=== PATIENT | female | born 1970 | race American Indian/Alaskan Native ===

== ENCOUNTER 2018-10-09 20:02 | Emergency (ER) | payer OTHER ==
[2018-10-09] MEDS ORDERED: NACL 0.9% 1000 ML 1,000 ML IV ONE (20:21)
[2018-10-09] MEDS ORDERED: DILAUDID IV ONE (20:21)
--- NOTE | 2018-10-09 20:31 | Emergency Department Report ---
ED Back Pain/Injury HPI - General Chief Complaint: Back Pain/Injury Stated Complaint: LOWER BACK PAIN Time Seen by Provider: 10/09/18 20:12 Source: patient, EMS Limitations: No Limitations - History of Present Illness Initial Comments: 48-year-old female presents today with complaint of left-sided back pain. Patient denies history of previous back pain, denies recent injury or fall. He reports pain began this morning, spontaneously. Her pain is in the left lower back, nonradiating, constant. Patient denies abdominal pain. Reports hematuria and dysuria. Patient denies nausea, vomiting, fever. MD Complaint: back pain -: This morning Similar Symptoms Previously: No Radiation: none Severity: severe Quality: sharp Consistency: constant Improves With: none Worsens With: movement, other (urinating) Context: unknown Associated Symptoms: denies: weakness, numbness, difficulty urinating, incontin ence, fever/chills, abdominal pain, nausea/vomiting - Related Data Home Medications Medication Instructions Recorded Confirmed Last Taken FLUoxetine HCL [PROzac] 40 mg PO BID 08/08/18 08/08/18 Unknown Furosemide [Lasix] 40 mg PO BID 08/08/18 08/08/18 Unknown Gabapentin [Neurontin] 300 mg PO BID 08/08/18 08/08/18 Unknown Hydralazine HCl 40 mg PO TID 08/08/18 08/08/18 08/07/18 13:00 Insulin Detemir [Levemir VIAL] 65 units SQ DAILY 08/08/18 08/08/18 08/08/18 08:00 Lyrica 250 mg PO TID 08/08/18 08/08/18 Unknown NIFEdipine [Nifedipine] 40 mg PO TID 08/08/18 08/08/18 08/07/18 13:00 Oxycodone HCl/Acetaminophen 1 each PO HS PRN 08/08/18 08/08/18 1 Day Ago [Percocet 10/325 mg] ~08/07/18 Temazepam [Restoril] 15 mg PO HS 08/08/18 08/08/18 Unknown Zolpidem [Ambien] 5 mg PO QHS PRN 08/08/18 08/08/18 Unknown Previous Rx's Medication Instructions Recorded Last Taken Type AtorvaSTATin [Lipitor] 40 mg PO QHS #30 tablet 08/10/18 Unknown Rx Clopidogrel [Plavix] 75 mg PO DAILY #30 tablet 08/10/18 Unknown Rx Methocarbamol [Robaxin-750] 750 mg PO Q6HR PRN #20 tablet 10/09/18 Unknown Rx cloNIDine [Catapres] 0.4 mg PO BID #60 tablet 10/09/18 Unknown Rx traMADol [Ultram] 50 mg PO Q6HR PRN #7 tablet 10/09/18 Unknown Rx Allergies Allergy/AdvReac Type Severity Reaction Status Date / Time ketorolac [From Toradol] Allergy Hives Verified 08/08/18 19:16 morphine Allergy Hives Verified 08/08/18 19:16 ED Review of Systems ROS: Stated complaint: LOWER BACK PAIN Other details as noted in HPI Comment: All other systems reviewed and negative Constitutional: denies: chills, fever Gastrointestinal: denies: abdominal pain, nausea, vomiting Genitourinary: dysuria, hematuria Musculoskeletal: back pain Neurological: denies: weakness, numbness, paresthesias ED Past Medical Hx - Past Medical History Previous Medical History?: Yes Hx Hypertension: Yes Hx CVA: Yes (Small stroke left with weak legs/incontinent) Hx Diabetes: Yes Hx GERD: Yes (stomach ulcers) Hx Liver Disease: Yes (nonalcoholic fatty liver) Hx COPD: Yes - Surgical History Past Surgical History?: Yes Hx Cholecystectomy: Yes Hx Breast Surgery: Yes Additional Surgical History: Hysterectomy - Social History Smoking Status: Never Smoker Substance Use Type: Prescribed - Medications Home Medications: Home Medications Medication Instructions Recorded Confirmed Last Taken Type FLUoxetine HCL [PROzac] 40 mg PO BID 08/08/18 08/08/18 Unknown History Furosemide [Lasix] 40 mg PO BID 08/08/18 08/08/18 Unknown History Gabapentin [Neurontin] 300 mg PO BID 08/08/18 08/08/18 Unknown History Hydralazine HCl 40 mg PO TID 08/08/18 08/08/18 08/07/18 13:00 History Insulin Detemir [Levemir VIAL] 65 units SQ DAILY 08/08/18 08/08/18 08/08/18 08:00 History Lyrica 250 mg PO TID 08/08/18 08/08/18 Unknown History NIFEdipine [Nifedipine] 40 mg PO TID 08/08/18 08/08/18 08/07/18 13:00 History Oxycodone HCl/Acetaminophen 1 each PO HS PRN 08/08/18 08/08/18 1 Day Ago History [Percocet 10/325 mg] ~08/07/18 Temazepam [Restoril] 15 mg PO HS 08/08/18 08/08/18 Unknown History Zolpidem [Ambien] 5 mg PO QHS PRN 08/08/18 08/08/18 Unknown History AtorvaSTATin [Lipitor] 40 mg PO QHS #30 tablet 08/10/18 Unknown Rx Clopidogrel [Plavix] 75 mg PO DAILY #30 tablet 08/10/18 Unknown Rx Methocarbamol [Robaxin-750] 750 mg PO Q6HR PRN #20 tablet 10/09/18 Unknown Rx cloNIDine [Catapres] 0.4 mg PO BID #60 tablet 10/09/18 Unknown Rx traMADol [Ultram] 50 mg PO Q6HR PRN #7 tablet 10/09/18 Unknown Rx ED Physical Exam - General Limitations: No Limitations General appearance: alert, in no apparent distress - Head Head exam: Present: atraumatic, normocephalic - Eye Eye exam: Present: normal appearance - ENT ENT exam: Present: mucous membranes moist - Neck Neck exam: Present: normal inspection - Respiratory Respiratory exam: Present: normal lung sounds bilaterally. Absent: respiratory distress - Cardiovascular Cardiovascular Exam: Present: regular rate, normal rhythm - GI/Abdominal GI/Abdominal exam: Present: soft. Absent: distended, tenderness - Extremities Exam Extremities exam: Present: normal inspection - Back Exam Back exam: Present: CVA tenderness (L) - Neurological Exam Neurological exam: Present: alert, oriented X3 - Psychiatric Psychiatric exam: Present: normal affect, normal mood - Skin Skin exam: Present: warm, dry, intact, normal color ED Course Vital Signs 10/09/18 10/09/18 10/09/18 20:05 21:22 22:00 Temperature 98.6 F Pulse Rate 86 94 H Respiratory 18 Rate Blood Pressure 192/110 192/128 Blood Pressure 202/113 [Left] O2 Sat by Pulse 100 100 Oximetry 10/09/18 23:00 Temperature 98.6 F Pulse Rate 87 Respiratory 18 Rate Blood Pressure Blood Pressure 151/91 [Left] O2 Sat by Pulse 100 Oximetry ED Medical Decision Making - Lab Data Result diagrams: 10/09/18 20:33 10/09/18 20:33 - Radiology Data Radiology results: report reviewed, image reviewed - Medical Decision Making 48-year-old female with left lower back pain. Reported dysuria and hematuria. However UA negative for infection or significant hematuria. CT was obtained to rule out any intra-abdominal pathology such as kidney stone, pyelonephritis or hydronephrosis. CT is negative for any acute findings. Patient feeling much better at this time after receiving IV fluids and pain meds. Remainder of labs unremarkable. No elevation in WBCs. Pain possible due to muscle strain. Return precautions given. Outpatient follow-up advised. Patient given prescr iption for Ultram and Robaxin. - Differential Diagnosis kidney stone, pyelonephritis, muscle strain, sciatica Critical care attestation.: If time is entered above; I have spent that time in minutes in the direct care of this critically ill patient, excluding procedure time. ED Disposition Clinical Impression: Flank pain Disposition: DC-01 TO HOME OR SELFCARE Is pt being admited?: No Condition: Stable Instructions: Flank Pain (ED), Back Pain (ED) Prescriptions: cloNIDine [Catapres] 0.4 mg PO BID #60 tablet Methocarbamol [Robaxin-750] 750 mg PO Q6HR PRN #20 tablet PRN Reason: Spasms traMADol [Ultram] 50 mg PO Q6HR PRN #7 tablet PRN Reason: Pain Referrals: ROLAN RHODES MD [Primary Care Provider] - 3-5 Days [facility] [Provider Group] - 3-5 Days Time of Disposition: 23:16
[2018-10-09 20:42] LABS: Basophils # (Auto) 0.1 K/mm3 (0.0-0.1); Eosinophils # (Auto) 0.2 K/mm3 (0.0-0.4); Eosinophils % (Auto) 2.5 % (0.0-4.3); Hematocrit 44.5 % (30.3-42.9); Hemoglobin 14.5 gm/dl (10.1-14.3); Lymphocytes # (Auto) 3.2 K/mm3 (1.2-5.4); Lymphocytes % (Auto) 36.3 % (13.4-35.0); Mean Corpuscular HGB Conc 33 % (30-34); Mean Corpuscular Volume 89 fl (79-97); Monocytes # (Auto) 0.7 K/mm3 (0.0-0.8); Monocytes % (Auto) 7.4 % (0.0-7.3); Platelet Count 334 K/mm3 (140-440); Red Blood Count 4.99 M/mm3 (3.65-5.03); Red Cell Distribution Width 13.9 % (13.2-15.2)
[2018-10-09 21:27] LABS: Alanine Aminotransferase 23 units/L (7-56); Albumin 3.7 g/dL (3.9-5); BUN/Creatinine Ratio 20; Blood Urea Nitrogen 18 mg/dL (7-17); Calcium 9.5 mg/dL (8.4-10.2); Hemolysis Index 12
[2018-10-09 21:30] LABS: Bilirubin,Urine NEG (Negative); Blood,Urine NEG (Negative); Color,Urine Yellow (Yellow); Mucus,Urine FEW /HPF; Urobilinogen,Urine < 2.0 mg/dL (<2.0)
[2018-10-09] MEDS ORDERED: CATAPRES PO ONE (21:30)
--- NOTE | 2018-10-09 22:43 | Cat Scan Report ---
FINAL REPORT PROCEDURE: CT ABDOMEN PELVIS WO CON TECHNIQUE: Computerized axial tomography of the abdomen and pelvis was performed without intravenous contrast. This study is performed without intravascular contrast material and its sensitivity for ab dominal and pelvic pathology, including neoplasms, inflammation, abscess, free fluid, thrombosis, art erial dissection and infarction, is reduced compared with a contrast enhanced study. HISTORY: L flank pain COMPARISON: No prior studies are available for comparison. FINDINGS: Lower Lung heck: There is minimal dependent atelectasis. Upper Abdomen: The gallbladder is surgically absent. The unenhanced images the liver show no focal ab normalities. The adrenal glands, the pancreas and the spleen show no abnormalities. Descending thorac ic aorta is markedly tortuous although I do not see evidence of aneurysmal dilatation. Kidneys, Ureters and Urinary bladder: There is a 5.2 centimeter low-density nodule projecting lateral ly from the lower 3rd of the right kidney with a density of 0 Hounsfield units consistent with a thuan l cortical cyst. The right kidney is otherwise unremarkable. No masses calculi or hydronephrosis visu alized. The right ureter appears normal. Urinary bladder is only partially filled and showed no gross abnormality. The left ureter and left kidney show no abnormalities. Calcifications are visualized in the lower pelvis which appear to represent phleboliths Retroperitoneum: Atherosclerotic changes are seen in the abdominal aorta. No aneurysm is visualized. Nonspecific subcentimeter lymph nodes are seen in the retroperitoneum. No pathologically enlarged lym ph nodes are identified. Bowel: There is moderate diverticulosis in the left side of the colon without evidence of diverticuli tis. No evidence of bowel obstruction or ascites. There is no free intraperitoneal gas. Normal-appear ing appendix is seen in the right lower quadrant. Reproductive organs: Uterus is surgically absent. No abnormal adnexal masses are seen. Other: No acute bony abnormalities are seen. IMPRESSION: No acute abnormalities are seen. Colonic diverticulosis without evidence of diverticulitis. Renal cortical cyst visualize right kidney. No hydronephrosis renal or ureteral calculi are seen. Prior hysterectomy. Prior cholecystectomy.
[2018-10-09 23:13] VITALS: BP 151/91
== END 2018-10-09 23:45 | disposition home or self-care (01) ==
LOC: ED 20:02
DX: R10.9 Unspecified abdominal pain (principal); I10 Essential (primary) hypertension; E11.9 Type 2 diabetes mellitus without complications; K21.9 Gastro-esophageal reflux disease without esophagitis; J44.9 Chronic obstructive pulmonary disease, unspecified; Z90.710 Acquired absence of both cervix and uterus; Z90.49 Acquired absence of other specified parts of digestive tract; Z86.73 Personal history of transient ischemic attack (TIA), and cerebral infarction without residual deficits; Z88.6 Allergy status to analgesic agent
CPT/HCPCS: 36415; 74176; 80053; 81001; 83690; 84703; 85025; 96374; 99284; J1170; J7030

== ENCOUNTER 2018-10-25 15:07 | Emergency (ER) | payer OTHER ==
--- NOTE | 2018-10-25 15:30 | Emergency Department Report ---
Blank Doc - Documentation Documentation: This is a 48-year-old female that presents with chronic lower back pain. Denies any urinary symptoms. Denies any injuries or trauma. This initial assessment diagnostic orders/clinical plan/treatment(s) is/are subject to change based on patient's health status, clinical progression and re- assessment by fellow clinical providers in the ED. Further treatment and workup at subsequent clinical providers discretion. Patient/guardians urged not to elope from ED s their condition may be serious if not clinically assessed and managed. Initial orders include: 1-Patient sent to [facility] for further evaluation and treatment
== END 2018-10-25 19:00 | disposition left against medical advice (07) ==
LOC: ED 15:07
DX: M54.5 Low back pain (principal); Z53.21 Procedure and treatment not carried out due to patient leaving prior to being seen by health care provider

== ENCOUNTER 2018-10-30 12:33 | Emergency (ER) | payer OTHER ==
[2018-10-30 15:14] LABS: Basophils # (Auto) 0.1 K/mm3 (0.0-0.1); Basophils % (Auto) 0.7 % (0.0-1.8); Eosinophils # (Auto) 0.2 K/mm3 (0.0-0.4); Eosinophils % (Auto) 1.5 % (0.0-4.3); Hematocrit 45.8 % (30.3-42.9); Hemoglobin 15.3 gm/dl (10.1-14.3); Lymphocytes # (Auto) 4.2 K/mm3 (1.2-5.4); Lymphocytes % (Auto) 32.9 % (13.4-35.0); Mean Corpuscular HGB Conc 34 % (30-34); Mean Corpuscular Volume 90 fl (79-97); Monocytes # (Auto) 0.9 K/mm3 (0.0-0.8); Monocytes % (Auto) 6.9 % (0.0-7.3); Platelet Count 352 K/mm3 (140-440); Red Blood Count 5.07 M/mm3 (3.65-5.03); Red Cell Distribution Width 14.7 % (13.2-15.2)
[2018-10-30 15:18] LABS: Albumin 4.1 g/dL (3.9-5); BUN/Creatinine Ratio 18; Blood Urea Nitrogen 24 mg/dL (7-17); Calcium 9.4 mg/dL (8.4-10.2); Hemolysis Index 177
[2018-10-30 15:21] LABS: Bilirubin,Direct < 0.2 mg/dL (0-0.2)
[2018-10-30 15:22] LABS: Alanine Aminotransferase 38 units/L (7-56)
--- NOTE | 2018-10-30 15:37 | Emergency Department Report ---
HPI - General Chief Complaint: Abdominal Pain Time Seen by Provider: 10/30/18 14:31 - HPI HPI: 48-year-old -[place] female presents to the emergency department with complaint of left-sided flank pain with some radiation towards the left abdomen has been going on for the past month. She says that she's had some dysuria and occasionally has seen some blood in the urine. She denies any fever, back pain. Patient has a past medical history of hypertension, diabetes, previous breast cancer, and she also has a history of having a stroke in July of last year and was seen here at this hospital. The patient was also seen here about one month ago for similar left-sided flank pain. At the time she had some blood work done and a CT scan that did not show any acute process or etiology of her pain. She does not have a primary care physician. ED Past Medical Hx - Past Medical History Hx Hypertension: Yes Hx CVA: Yes (Small stroke left with weak legs/incontinent) Hx Diabetes: Yes Hx GERD: Yes (stomach ulcers) Hx Liver Disease: Yes (nonalcoholic fatty liver) Hx Arthritis: Yes (RA, osteoarthritis) Hx COPD: Yes - Surgical History Hx Cholecystectomy: Yes Hx Breast Surgery: Yes Additional Surgical History: Hysterectomy - Social History Smoking Status: Current Every Day Smoker Substance Use Type: None - Medications Home Medications: Home Medications Medication Instructions Recorded Confirmed Last Taken Type Lyrica 250 mg PO TID 08/08/18 08/08/18 Unknown History RX: FLUoxetine HCL [PROzac] 40 mg PO BID 08/08/18 08/08/18 Unknown History RX: Furosemide [Lasix] 40 mg PO BID 08/08/18 08/08/18 Unknown History RX: Gabapentin [Neurontin] 300 mg PO BID 08/08/18 08/08/18 Unknown History RX: Hydralazine HCl 40 mg PO TID 08/08/18 08/08/18 08/07/18 13:00 History RX: Insulin Detemir [Levemir VIAL] 65 units SQ DAILY 08/08/18 08/08/18 08/08/18 08:00 History RX: NIFEdipine [Nifedipine] 40 mg PO TID 08/08/18 08/08/18 08/07/18 13:00 History RX: Oxycodone HCl/Acetaminophen 1 each PO HS PRN 08/08/18 08/08/18 1 Day Ago History [Percocet 10/325 mg] ~08/07/18 RX: Temazepam [Restoril] 15 mg PO HS 08/08/18 08/08/18 Unknown History RX: Zolpidem [Ambien] 5 mg PO QHS PRN 08/08/18 08/08/18 Unknown History RX: AtorvaSTATin [Lipitor] 40 mg PO QHS #30 tablet 08/10/18 Unknown Rx RX: Clopidogrel [Plavix] 75 mg PO DAILY #30 tablet 08/10/18 Unknown Rx Methocarbamol [Robaxin-750] 750 mg PO Q6HR PRN #20 tablet 10/09/18 Unknown Rx RX: cloNIDine [Catapres] 0.4 mg PO BID #60 tablet 10/09/18 Unknown Rx traMADol [Ultram] 50 mg PO Q6HR PRN #7 tablet 10/09/18 Unknown Rx Clonidine HCl [Catapres] 0.3 mg PO BID #60 tablet 10/30/18 Unknown Rx Nitrofurantoin Monohyd/M-Cryst 100 mg PO BID #14 capsule 10/30/18 Unknown Rx [Macrobid 100 mg Capsule] ED Review of Systems ROS: Stated complaint: PAIN ON (L) SIDE Other details as noted in HPI Comment: All other systems reviewed and negative Constitutional: denies: chills, fever Eyes: denies: eye pain, vision change ENT: denies: ear pain, throat pain Respiratory: denies: cough, shortness of breath Cardiovascular: denies: chest pain, palpitations Gastrointestinal: abdominal pain. denies: diarrhea Genitourinary: dysuria. denies: discharge Musculoskeletal: denies: back pain, arthralgia Skin: denies: rash, lesions Neurological: denies: headache, weakness Physical Exam - Physical Exam Vital Signs: Vital Signs 10/30/18 12:38 Temperature 98.9 F Pulse Rate 88 Respiratory 16 Rate Blood Pressure 214/120 O2 Sat by Pulse 99 Oximetry Physical Exam: GENERAL: The patient is well-developed well-nourished. HEENT: Normocephalic. Atraumatic. Patient has moist mucous membranes. EYES: Extraocular motions are intact. Pupils are equal and reactive to light bilaterally. NECK: Supple. Trachea is midline. CHEST/LUNGS: Clear to auscultation. There is no respiratory distress noted. HEART/CARDIOVASCULAR: Regular. There is no tachycardia. There is no obvious murmur. ABDOMEN: Abdomen is soft. No tenderness to palpation to the abdomen but there is some reproducible left flank pain to palpation. No guarding. Patient has normal bowel sounds. Obese habitus. SKIN: Skin is warm and dry. Nonpitting edema to the bilateral lower extremities. NEURO: The patient is awake, alert, and oriented. The patient is cooperative. The patient has normal speech. MUSCULOSKELETAL: There is no tenderness or deformity. There is no evidence of acute injury. ED Course Vital Signs 10/30/18 12:38 Temperature 98.9 F Pulse Rate 88 Respiratory 16 Rate Blood Pressure 214/120 O2 Sat by Pulse 99 Oximetry ED Medical Decision Making - Lab Data Result diagrams: 10/30/18 14:44 10/30/18 14:44 - Radiology Data Radiology results: report reviewed CT of the abdomen and pelvis without contrast shows no evidence of renal obstruction or renal calculi bilaterally. There is a cyst in the lower pole of the right kidney. Diverticulosis of the descending sigmoid colon. 2 tiny midline ventral hernias containing only fat. This was read by radiologist, Jaja Matamoros M.D. - Medical Decision Making This patient presents to the emergency department with a continuation of left flank pain. Labs are mostly unremarkable except for some mild renal insufficiency with a creatinine of 1.3 and a GFR of 53. She also has a mild urinary tract infection. No leukocytosis, electrolyte abnormalities. CT scan of the abdomen and pelvis was done without contrast that shows no evidence of renal obstruction or calculi, a cyst in the lower right kidney, diverticulosis without diverticulitis and 2 tiny ventral hernias. Patient was found to have very elevated blood pressure. However she has been out of her Catapres for the past week or so. She was given a dose of hydralazine and her blood pressure improved greatly. The patient has multiple dietary and/or lifestyle changes that can be made to help with her blood pressure and her overall health. We discussed staying away from foods are high in salt and caffeinated products. We discussed smoking cessation. The patient also understands that she needs to find a primary care physician to manage all of her comorbidities and medical conditions and she has been given multiple referrals for primary care physicians. Patient has previous history of stroke but has no complaints today regarding any weakness, numbness, headache or any neurological deficits and came in focused on the flank pain. She will return to the ER with any worsening of her symptoms or any acute distress. - Differential Diagnosis nephrolithiasis, pyelonephritis, UTI, colitis Critical Care Time: No Critical care attestation.: If time is entered above; I have spent that time in minutes in the direct care of this critically ill patient, excluding procedure time. ED Disposition Clinical Impression: Left flank pain, Noncompliance with medication regimen, Renal insufficiency Hypertension Qualifiers: Hypertension type: essential hypertension Qualified Code(s): I10 - Essential (primary) hypertension UTI (urinary tract infection) Qualifiers: Urinary tract infection type: acute cystitis Hematuria presence: without hematuria Qualified Code(s): N30.00 - Acute cystitis without hematuria Disposition: TO HOME OR SELFCARE Is pt being admited?: No Condition: Stable Instructions: How to Stop Smoking (ED), Urinary Tract Infection in Women (ED), Hypertension (ED), Flank Pain (ED), Impaired Kidney Function (ED) Additional Instructions: Please follow up with a primary care physician as soon as possible. Return to the emergency Department with any worsening of your symptoms or any acute distress. Take the antibiotics as prescribed for your urinary tract infection. I am refilling your clonidine. Try and stay away from foods that are high in salt and caffeinated products to help with your blood pressure. Please try and quit smoking. Keep a blood pressure log. Please avoid any NSAID use which includes ibuprofen, Aleve, Motrin, naproxen, Midol. Prescriptions: Clonidine HCl [Catapres] 0.3 mg PO BID #60 tablet Nitrofurantoin Monohyd/M-Cryst [Macrobid 100 mg Capsule] 100 mg PO BID #14 capsule Referrals: ROLAN RHODES MD [Staff Physician] - 2-3 Days MARY CORDOVA DO [Staff Physician] - 2-3 Days CARLOS JULIO MD [Staff Physician] - 2-3 Days [facility] [Outside] - 2-3 Days Time of Disposition: 18:57
[2018-10-30 15:46] LABS: Bacteria,Urine 1+ /HPF (Negative); Bilirubin,Urine NEG (Negative); Blood,Urine NEG (Negative); Color,Urine Yellow (Yellow); Hyaline Casts,Urine 4 /LPF; Mucus,Urine FEW /HPF
[2018-10-30 15:48] LABS: Protein,Urine >500 mg/dL (Negative)
[2018-10-30] MEDS ORDERED: ULTRAM PO ONE (16:47)
[2018-10-30] MEDS ORDERED: ZOFRAN ODT PO ONE (17:03)
[2018-10-30] MEDS ORDERED: ZOFRAN ODT ONE (17:06)
[2018-10-30] MEDS ORDERED: APRESOLINE IV ONE (17:30)
[2018-10-30 18:50] VITALS: BP 143/79
[2018-10-30] MEDS ORDERED: TYLENOL #3 PO ONE (19:28)
--- NOTE | 2018-10-30 22:17 | Cat Scan Report ---
PROCEDURE: CT ABDOMEN PELVIS WO CON TECHNIQUE: Computerized axial tomography of the abdomen and pelvis was performed without intravenous contrast. This study is performed without intravascular contrast material and its sensitivity for ab dominal and pelvic pathology, including neoplasms, inflammation, abscess, free fluid, thrombosis, art erial dissection and infarction, is reduced compared with a contrast enhanced study. HISTORY: left flank pain COMPARISONS: None . FINDINGS: Visualized lower thorax: No significant abnormality. Liver: Normal size and attenuation. Spleen: Normal size and attenuation. Gallbladder and biliary system: Gallbladder has been surgically removed.. Pancreas: Normal. Adrenals: Normal. Kidneys: There is a cyst in lower pole right kidney measuring 4.1 x 5.0 x 5.3 cm. No evidence for hyd ronephrosis or renal or ureteral calculi seen. GI tract: Diverticulosis of the descending and sigmoid colon is noted. . Lymph nodes and mesentery: Normal. Vasculature: Descending thoracic aorta is tortuous but otherwise normal.. Bladder: Normal. No bladder calculus is noted Reproductive organs: Uterus has been surgically removed. Peritoneum: No free fluid. Musculoskeletal structures: Moderate to severe degenerative disc changes at L4-L5 and L5-S1 are noted . There are also degenerative changes of lower thoracic levels. Facet joint degenerative changes at L 3-L4 are noted bilaterally.. Other: Tiny midline ventral hernia is noted inferiorly containing only fat. Tiny midline umbilical h ernia is noted containing only fat. IMPRESSION: 1. No evidence for renal obstruction or renal calculi bilaterally 2. Cyst in the lower pole right kidney which can be further evaluated with ultrasound 3. Diverticulosis of the descending sigmoid colon 4. 2 tiny midline ventral hernias containing only fat This document is electronically signed by Jaja Matamoros MD., October 30 2018 05:09:29 PM ET
== END 2018-10-30 19:38 | disposition home or self-care (01) ==
LOC: ED 12:33
DX: N30.00 Acute cystitis without hematuria (principal); I10 Essential (primary) hypertension; N28.9 Disorder of kidney and ureter, unspecified; E11.9 Type 2 diabetes mellitus without complications; K21.9 Gastro-esophageal reflux disease without esophagitis; M19.90 Unspecified osteoarthritis, unspecified site; J44.9 Chronic obstructive pulmonary disease, unspecified; F17.200 Nicotine dependence, unspecified, uncomplicated; Z86.73 Personal history of transient ischemic attack (TIA), and cerebral infarction without residual deficits; Z90.710 Acquired absence of both cervix and uterus; Z90.49 Acquired absence of other specified parts of digestive tract; Z88.6 Allergy status to analgesic agent
CPT/HCPCS: 36415; 74176; 80048; 80076; 81001; 83690; 84703; 85025; 96374; 99284; J0360; Q0162

== ENCOUNTER 2018-12-21 11:24 | Inpatient (IN) | payer OTHER ==
--- NOTE | 2018-12-21 11:45 | Cat Scan Report ---
CT HEAD WITHOUT CONTRAST: HISTORY: Neuro deficits, stroke. TECHNIQUE: Sequential 2.5mm CT images. COMPARISON: 08/08/18. FINDINGS: Cerebral Parenchyma: Minimal cortical volume loss and chronic white matter changes are identified. A focal chronic infarct in the medial right frontal lobe within the right ALPHONSO territory is unchanged measuring up to 1.0 x 0.6 x 2.0 cm. The remainder of the brain parenchyma is within normal limits. Cerebellum: Within normal limits. Brainstem: Within normal limits. Ventricles: Normal. Sella: Normal. Extra-axial spaces: Normal. Basal Cisterns: Normal. Intracranial Hemorrhage: None. Midline Shift: None. Calvarium: Normal. Sinuses: Normal. Mastoid Air Cells: Normal. Visualized Orbits: Normal. IMPRESSION: Minimal volume loss and chronic white matter changes. Chronic focal infarct in the right ALPHONSO territory. No acute intracranial process. These findings were discussed with Dr. Serna in the emergency department at 1139 hrs.
[2018-12-21 12:00] LABS: Basophils # (Auto) 0.1 K/mm3 (0.0-0.1); Basophils % (Auto) 1.4 % (0.0-1.8); Eosinophils # (Auto) 0.3 K/mm3 (0.0-0.4); Eosinophils % (Auto) 2.9 % (0.0-4.3); Hematocrit 38.1 % (30.3-42.9); Hemoglobin 12.7 gm/dl (10.1-14.3); Lymphocytes # (Auto) 3.3 K/mm3 (1.2-5.4); Lymphocytes % (Auto) 34.2 % (13.4-35.0); Mean Corpuscular HGB Conc 33 % (30-34); Mean Corpuscular Volume 92 fl (79-97); Monocytes # (Auto) 0.6 K/mm3 (0.0-0.8); Monocytes % (Auto) 6.5 % (0.0-7.3); Platelet Count 289 K/mm3 (140-440); Red Blood Count 4.16 M/mm3 (3.65-5.03); Red Cell Distribution Width 15.7 % (13.2-15.2)
--- NOTE | 2018-12-21 12:01 | Emergency Department Report ---
ED General Adult HPI - General Stated complaint: CVA Time Seen by Provider: 12/21/18 11:29 - History of Present Illness Initial comments: Patient states that around 8 AM this morning she noticed that her left arm and left leg were weak as well as having slurred speech. Patient has a recent history of a CVA in August patient also endorses having a GI bleed within the last 90 days and hit her head 2 days ago. Stroke protocol was initiated on followed. Patient denies chest pain, shortness breath, or headache. -: Sudden Severity scale (0 -10): 0 Consistency: constant Improves with: none Worsens with: none Associated Symptoms: denies other symptoms Treatments Prior to Arrival: none - Related Data Home Medications Medication Instructions Recorded Confirmed Last Taken FLUoxetine HCL [PROzac] 40 mg PO BID 08/08/18 12/21/18 Unknown Furosemide [Lasix] 40 mg PO BID 08/08/18 12/21/18 Unknown Gabapentin [Neurontin] 300 mg PO BID 08/08/18 12/21/18 Unknown Hydralazine HCl 40 mg PO TID 08/08/18 12/21/18 08/07/18 13:00 Insulin Detemir [Levemir VIAL] 35 units SQ DAILY 08/08/18 12/21/18 08/08/18 08:00 Lyrica 250 mg PO TID 08/08/18 12/21/18 Unknown Oxycodone HCl/Acetaminophen 1 each PO HS PRN 08/08/18 12/21/18 1 Day Ago [Percocet 10/325 mg] ~08/07/18 Zolpidem [Ambien] 5 mg PO QHS PRN 08/08/18 12/21/18 Unknown Insulin Aspart [Novolog] 35 unit SQ AC 12/21/18 12/21/18 Unknown Previous Rx's Medication Instructions Recorded Last Taken Type AtorvaSTATin [Lipitor] 40 mg PO QHS #30 tablet 08/10/18 Unknown Rx Clopidogrel [Plavix] 75 mg PO DAILY #30 tablet 08/10/18 Unknown Rx cloNIDine [Catapres] 0.4 mg PO BID #60 tablet 10/09/18 Unknown Rx Nitrofurantoin Monohyd/M-Cryst 100 mg PO BID #14 capsule 10/30/18 Unknown Rx [Macrobid 100 mg Capsule] Allergies Allergy/AdvReac Type Severity Reaction Status Date / Time ketorolac [From Toradol] Allergy Hives Verified 12/21/18 12:12 morphine Allergy Hives Verified 12/21/18 12:12 ED Review of Systems ROS: Stated complaint: CVA Other details as noted in HPI ED Past Medical Hx - Past Medical History Hx Hypertension: Yes Hx CVA: Yes (Small stroke left with weak legs/incontinent) Hx Diabetes: Yes Hx GERD: Yes (stomach ulcers) Hx Liver Disease: Yes (nonalcoholic fatty liver) Hx Arthritis: Yes (RA, osteoarthritis) Hx COPD: Yes - Surgical History Hx Cholecystectomy: Yes Hx Breast Surgery: Yes Additional Surgical History: Hysterectomy - Social History Smoking Status: Current Every Day Smoker Substance Use Type: None - Medications Home Medications: Home Medications Medication Instructions Recorded Confirmed Last Taken Type FLUoxetine HCL [PROzac] 40 mg PO BID 08/08/18 12/21/18 Unknown History Furosemide [Lasix] 40 mg PO BID 08/08/18 12/21/18 Unknown History Gabapentin [Neurontin] 300 mg PO BID 08/08/18 12/21/18 Unknown History Hydralazine HCl 40 mg PO TID 08/08/18 12/21/18 08/07/18 13:00 History Insulin Detemir [Levemir VIAL] 35 units SQ DAILY 08/08/18 12/21/18 08/08/18 08:00 History Lyrica 250 mg PO TID 08/08/18 12/21/18 Unknown History Oxycodone HCl/Acetaminophen 1 each PO HS PRN 08/08/18 12/21/18 1 Day Ago History [Percocet 10/325 mg] ~08/07/18 Zolpidem [Ambien] 5 mg PO QHS PRN 08/08/18 12/21/18 Unknown History AtorvaSTATin [Lipitor] 40 mg PO QHS #30 tablet 08/10/18 12/21/18 Unknown Rx Clopidogrel [Plavix] 75 mg PO DAILY #30 tablet 08/10/18 12/21/18 Unknown Rx cloNIDine [Catapres] 0.4 mg PO BID #60 tablet 10/09/18 12/21/18 Unknown Rx Nitrofurantoin Monohyd/M-Cryst 100 mg PO BID #14 capsule 10/30/18 12/21/18 Unknown Rx [Macrobid 100 mg Capsule] Insulin Aspart [Novolog] 35 unit SQ AC 12/21/18 12/21/18 Unknown History ED Physical Exam - General General appearance: alert, in no apparent distress - Head Head exam: Present: atraumatic, normocephalic - Eye Eye exam: Present: normal appearance, PERRL, EOMI - ENT ENT exam: Present: mucous membranes moist - Neck Neck exam: Present: normal inspection - Respiratory Respiratory exam: Present: normal lung sounds bilaterally. Absent: respiratory distress, wheezes - Cardiovascular Cardiovascular Exam: Present: regular rate, normal rhythm. Absent: systolic murmur, diastolic murmur, rubs, gallop - GI/Abdominal GI/Abdominal exam: Present: soft, normal bowel sounds. Absent: distended, tenderness - Extremities Exam Extremities exam: Present: normal inspection - Back Exam Back exam: Present: normal inspection - Neurological Exam Neurological exam: Present: alert, oriented X3, CN II-XII intact, other (left facial droop. left upper and lower extremity weakness 2/5) - Psychiatric Psychiatric exam: Present: normal affect, normal mood - Skin Skin exam: Present: warm, dry, intact, normal color. Absent: rash ED Course Vital Signs 12/21/18 12/21/18 12/21/18 11:24 11:39 11:46 Temperature 98.4 F Pulse Rate 59 L Respiratory 18 Rate Blood Pressure 178/106 178/106 178/106 Blood Pressure [Left] O2 Sat by Pulse 100 98 Oximetry 12/21/18 12/21/18 12/21/18 11:48 12:00 12:16 Temperature Pulse Rate 60 Respiratory 18 Rate Blood Pressure 178/106 178/100 Blood Pressure 176/76 [Left] O2 Sat by Pulse 100 100 100 Oximetry 12/21/18 12/21/18 12:30 12:46 Temperature Pulse Rate 59 L Respiratory 18 Rate Blood Pressure 178/100 178/100 Blood Pressure [Left] O2 Sat by Pulse 98 100 Oximetry ED Medical Decision Making - Lab Data Result diagrams: 12/21/18 11:39 12/21/18 11:39 Lab Results 12/21/18 12/21/18 12/21/18 Range/Units 11:39 11:39 11:39 WBC 9.7 (4.5-11.0) K/mm3 RBC 4.16 (3.65-5.03) M/mm3 Hgb 12.7 (10.1-14.3) gm/dl Hct 38.1 (30.3-42.9) % MCV 92 (79-97) fl MCH 31 (28-32) pg MCHC 33 (30-34) % RDW 15.7 H (13.2-15.2) % Plt Count 289 (140-440) K/mm3 Lymph % (Auto) 34.2 (13.4-35.0) % [place] % (Auto) 6.5 (0.0-7.3) % Eos % (Auto) 2.9 (0.0-4.3) % Baso % (Auto) 1.4 (0.0-1.8) % Lymph # 3.3 (1.2-5.4) K/mm3 [place] # 0.6 (0.0-0.8) K/mm3 Eos # 0.3 (0.0-0.4) K/mm3 Baso # 0.1 (0.0-0.1) K/mm3 Seg Neutrophils % 55.0 (40.0-70.0) % Seg Neutrophils # 5.4 (1.8-7.7) K/mm3 PT 12.4 (12.2-14.9) Sec. INR 0.87 (0.87-1.13) APTT 26.2 (24.2-36.6) Sec. Thrombin Time 15.8 (15.1-19.6) Sec. Sodium 141 (137-145) mmol/L Potassium 4.4 (3.6-5.0) mmol/L Chloride 106.5 (98-107) mmol/L Carbon Dioxide 23 (22-30) mmol/L Anion Gap 16 mmol/L BUN 18 H (7-17) mg/dL Creatinine 0.8 (0.7-1.2) mg/dL Estimated GFR > 60 ml/min BUN/Creatinine Ratio 23 % Glucose 242 H (65-100) mg/dL Calcium 8.8 (8.4-10.2) mg/dL Troponin T < 0.010 (0.00-0.029) ng/mL - EKG Data -: EKG Interpreted by Ks EKG shows normal: sinus rhythm Rate: bradycardia - Radiology Data Radiology results: report reviewed - Medical Decision Making Tele neurology consulted Patient deemed not to be a tpa candidate Critical care attestation.: If time is entered above; I have spent that time in minutes in the direct care of this critically ill patient, excluding procedure time. ED Disposition Clinical Impression: Stroke, Weakness, Facial droop Disposition: DC-09 OP ADMIT IP TO THIS HOSP Is pt being admited?: Yes Does the pt Need Aspirin: No Condition: Stable Referrals: [facility] [Other] - 3-5 Days - Assessment Assessment Interval: Baseline - Level of Consciousness 1a. Level of Consciousness: alert/keenly responsive - LOC Questions 1b. LOC Questions: answers both correctly - LOC Command 1c. LOC Commands: performs tasks correctly - Best Gaze 2. Best Gaze: normal - Visual 3. Visual: no visual loss - Facial Palsy 4. Facial Palsy: minor paralysis - Motor Arm 5a. Motor Arm Left: some gravity effort 5b. Motor Arm Right: no drift - Motor Leg 6a. Motor Leg Left: no gravity effort 6b. Motor Leg Right: no drift - Limb Ataxia 7. Limb Ataxia: absent - Sensory 8. Sensory: normal - Best Language 9. Best Language: no aphasia - Dysarthria 10. Dysarthria: normal - Extinction and Inattention 11. Extinction/Inattention: no abnormality - Scoring Total Score: 6 Stroke Severity: Moderate Stroke
[2018-12-21 12:15] LABS: INR 0.87 (0.87-1.13)
[2018-12-21 12:16] LABS: Partial Thromboplastin Time 26.2 Sec. (24.2-36.6); Thrombin Time 15.8 Sec. (15.1-19.6)
--- NOTE | 2018-12-21 12:20 | Emergency Department Report ---
HPI - General Chief Complaint: Weakness Time Seen by Provider: 12/21/18 11:29 - HPI HPI: [facility] Tele[facility]urology Consult [facility] Asked to see this patient in telemedicine consultation. Consultation was performed with assistance of ancillary/medical staff at bedside. Comments: Last Known normal 8-900 Door Time: 1124 [facility] Contacted: 1133 [facility] first log in: 1139 NIHSS assessment time: 1145 Call back time: 1158 Needle Time: no iv tpa HPI: 48 yof with hx of htn, previous TIA/stroke presents with left sided weakness. She states prior stroke affecting her right side but review of imaging indicates old strokes in R [place]PH[place] territory per radiology report. She states she can't move her L arm and leg after returning to the bedroom from using the bathroom. She states hx of falling and d/t that she sleeps on the floor, she admits to falling down the stairs few days ago but didn't seek medical help. She also states bleeding few months ago when having bowel movement but doesn't provide more detail and again didn't seek medical attention for that. During interview she spontaneously moved her left leg almost antigravity when adjust her self in bed, when this was mentioned to her she seemed indifferent about it and said she can't move it now. VSS Gen Wn/Wd in Nad TeleStroke Assessment: LOC: 0 LOC questions: 0 LOC Commands : 0 Gaze : 0 Visual heck : 0 Facial movements : 0 Upper limb Motor 3 Lower limb Motor 4->2 Limb Coordination - 0 Sensory - - 0 Language - 0 Speech - 0 Neglect / extinction - 0 NIHSS Score: 5 IMPRESSION Reactivation of old stroke sxs vs acute process vs non vascular process as exam is inconsistent will need to RO Stroke Medical Decision Making: Patient is not candidate for alteplase due to inconsistent exam, recent head trauma, and self reported GIB hx. Not an IR candidate as low clinical suspicion for LVO by neurologic assessment. Recommendations: - Daily antithrombotics to initiate if no contraindication. - Further work up with Stroke labs, MRI brain, ECHO, NIVS Carotid will be deferred to inpt neurology service - Needs Inpatient Neurology consultation and follow up - Thank you for allowing us to participate in the care of your patient, if there are any questions please don't hesitate to contact us Discussed plan of care with patient/hospital staff Physician: Ricardo Norton DO [facility] ED Past Medical Hx - Past Medical History Hx Hypertension: Yes Hx CVA: Yes (Small stroke left with weak legs/incontinent) Hx Diabetes: Yes Hx GERD: Yes (stomach ulcers) Hx Liver Disease: Yes (nonalcoholic fatty liver) Hx Arthritis: Yes (RA, osteoarthritis) Hx COPD: Yes - Surgical History Hx Cholecystectomy: Yes Hx Breast Surgery: Yes Additional Surgical History: Hysterectomy - Social History Smoking Status: Current Every Day Smoker Substance Use Type: None - Medications Home Medications: Home Medications Medication Instructions Recorded Confirmed Last Taken Type FLUoxetine HCL [PROzac] 40 mg PO BID 08/08/18 08/08/18 Unknown History Furosemide [Lasix] 40 mg PO BID 08/08/18 08/08/18 Unknown History Gabapentin [Neurontin] 300 mg PO BID 08/08/18 08/08/18 Unknown History Hydralazine HCl 40 mg PO TID 08/08/18 08/08/18 08/07/18 13:00 History Insulin Detemir [Levemir VIAL] 65 units SQ DAILY 08/08/18 08/08/18 08/08/18 08:00 History Lyrica 250 mg PO TID 08/08/18 08/08/18 Unknown History NIFEdipine [Nifedipine] 40 mg PO TID 08/08/18 08/08/18 08/07/18 13:00 History Oxycodone HCl/Acetaminophen 1 each PO HS PRN 08/08/18 08/08/18 1 Day Ago History [Percocet 10/325 mg] ~08/07/18 Temazepam [Restoril] 15 mg PO HS 08/08/18 08/08/18 Unknown History Zolpidem [Ambien] 5 mg PO QHS PRN 08/08/18 08/08/18 Unknown History AtorvaSTATin [Lipitor] 40 mg PO QHS #30 tablet 08/10/18 Unknown Rx Clopidogrel [Plavix] 75 mg PO DAILY #30 tablet 08/10/18 Unknown Rx Methocarbamol [Robaxin-750] 750 mg PO Q6HR PRN #20 tablet 10/09/18 Unknown Rx cloNIDine [Catapres] 0.4 mg PO BID #60 tablet 10/09/18 Unknown Rx traMADol [Ultram] 50 mg PO Q6HR PRN #7 tablet 02/09/19 Unknown Rx Clonidine HCl [Catapres] 0.3 mg PO BID #60 tablet 10/30/18 Unknown Rx Nitrofurantoin Monohyd/M-Cryst 100 mg PO BID #14 capsule 10/30/18 Unknown Rx [Macrobid 100 mg Capsule] ED Review of Systems ROS: Stated complaint: CVA Other details as noted in HPI Physical Exam - Physical Exam Vital Signs: Vital Signs 12/21/18 11:48 Pulse Rate 60 Respiratory 18 Rate Blood Pressure 176/76 [Left] O2 Sat by Pulse 100 Oximetry ED Course Vital Signs 12/21/18 11:48 Pulse Rate 60 Respiratory 18 Rate Blood Pressure 176/76 [Left] O2 Sat by Pulse 100 Oximetry ED Medical Decision Making - Lab Data Result diagrams: 12/21/18 11:39 Critical care attestation.: If time is entered above; I have spent that time in minutes in the direct care of this critically ill patient, excluding procedure time. ED Disposition Clinical Impression: Stroke Disposition: DC-09 OP ADMIT IP TO THIS HOSP Is pt being admited?: Yes Condition: Stable Referrals: [place] [Other] - 3-5 Days
[2018-12-21 12:21] LABS: BUN/Creatinine Ratio 23; Blood Urea Nitrogen 18 mg/dL (7-17); Calcium 8.8 mg/dL (8.4-10.2); Hemolysis Index 8
[2018-12-21] MEDS: DILAUDID IV PRN ×2 (18:34→22:23)
[2018-12-21] MEDS ORDERED: HumaLOG SUB-Q SCH (22:00)
[2018-12-22] MEDS ORDERED: APRESOLINE PO ONE (00:03)
[2018-12-22] MEDS ORDERED: RESTORIL PO ONE (00:13)
[2018-12-22] MEDS ORDERED: AMBIEN PO PRN (00:31)
[2018-12-22] MEDS ORDERED: TYLENOL PO PRN (00:34)
[2018-12-22] MEDS ORDERED: SODIUM CHLORIDE FLUSH SYRINGE 10 ML IV PRN (00:34)
[2018-12-22] MEDS ORDERED: ZOFRAN IV PRN (00:34)
[2018-12-22] MEDS ORDERED: DILAUDID IV PRN (00:35)
[2018-12-22] MEDS ORDERED: SODIUM CHLORIDE FLUSH SYRINGE 10 ML INJ PRN (00:38)
--- NOTE | 2018-12-22 00:44 | Event Note ---
Date: 12/21/18 See dictated H/p in the reports Acute CVA--CVA w/u HTN IDDM HLD
[2018-12-22] MEDS ORDERED: NACL 0.45% 1000 ML 1,000 ML IV SCH (01:00)
[2018-12-22] MEDS ORDERED: NEURONTIN PO SCH (01:00)
--- NOTE | 2018-12-22 01:39 | History and Physical Report ---
CHIEF COMPLAINT: Left-sided weakness since morning. HISTORY OF PRESENT ILLNESS: A 48-year-old -[place] female with history of acute CVA in August, who comes in for acute left-sided weakness since 8:00 a.m. in the morning. The patient is able to do walking normally and has normal strength in the left upper and left lower extremity which has improved completely from the previous stroke as per the patient and the family. The daughter shows me the pictures of her mother walking and standing. Now the patient has left-sided weakness in both upper and lower extremities. Able to move to some extent only. Also, slurred speech. No loss of consciousness. Code stroke was called in the Emergency Room. No shortness of breath. No chest pain. Unable to walk because of the left-sided weakness. No syncope. PAST MEDICAL HISTORY: Significant for CHF, peripheral neuropathy, depression, hypertension, insulin-dependent diabetes. PAST SURGICAL HISTORY: Significant for breast surgery, hysterectomy and cholecystectomy. SOCIAL HISTORY: Smokes over a pack a day. FAMILY HISTORY: Hypertension. REVIEW OF SYSTEMS: Significant for right-sided weakness both upper and lower extremities and also slurred speech. Unable to walk, normally was doing her ADLs and walking every day. No loss of consciousness. A 14-point review of systems is done. Otherwise negative. PHYSICAL EXAMINATION: GENERAL: Middle-aged female, cooperative during examination, obese, overweight. VITAL SIGNS: Blood pressure is 172/92, temperature is 98.4, pulse is 68, respiratory rate is 24 and 16. HEENT: Left facial palsy present, upper motor neuron type. NECK: Supple, no lymphadenopathy, no thyromegaly. LUNGS: Clear to auscultation and percussion. Good air entry. CARDIOVASCULAR: S1, S2 heard. No gallop, no murmur, no rub. Apical impulse in left fifth intercostal space and midclavicular line. ABDOMEN: Soft and benign. No hepatosplenomegaly, no guarding, no rigidity. Hernial orifices are normal. EXTREMITIES: Good pedal pulses. CENTRAL NERVOUS SYSTEM: Left upper and left lower extremity power is very diminished. Power is 1/5 in left upper extremity and left lower extremity. Left facial palsy present. Upper motor neuron type. Other cranial nerves are intact. Sensory system is intact. Reflexes are slightly brisk on the left side. SKIN: Normal. LABORATORY DATA: Labs are significant for white count of 9700, hemoglobin of 12.7 and hematocrit of 38.1, platelet count of 289,000. Electrolytes are normal. Glucose is 309, [address] shows minimal volume loss and chronic white matter changes, chronic focal infarct on the right anterior cerebral artery territory. No acute intracranial process. EKG shows sinus bradycardia, heart rate of 56 per minute, T-wave inversions in aVL and also lead 1. Otherwise, normal EKG. EKG interpreted by me. ASSESSMENT AND PLAN: 1. New onset acute cerebro vascular accident. The patient has apparently recovered completely from the last CVA a couple of months ago with near 5/5 power in the left upper and left lower extremity. Now, the patient has a power of 1 x 5 in both left upper and left lower extremity along with left facial palsy. Clinical picture consistent with acute CVA, recurrent. CVA protocol initiated. The patient to get MRI, MRA, carotid duplex scan, and echocardiogram. The patient is out of window for TPA . Teleneurology consulted. 2. Hypertension. Continue antihypertensives in the form of clonidine 0.2 b.i.d. and also hydralazine 40 mg t.i.d. 3. Insulin-dependent diabetes. Continue insulinand coverage. 4. Peripheral neuropathy. Continue Lyrica. We will discontinue the gabapentin. 5. Congestive heart failure. Continue Lasix. The patient is due for echo for EF and valve fucntion. . 6. Depression. Continue fluoxetine 7. Coronary artery disease and CVA in the past. Continue Plavix. 8. Hyperlipidemia. Continue atorvastatin. 9. Deep venous thrombosis prophylaxis, Lovenox 40 mg subQ and GI prophylaxis initiated JOB# [id number] BRISA/JURGEN HARRIS
[2018-12-22] MEDS: LASIX PO SCH ×3 (03:32→21:25)
[2018-12-22] MEDS: SODIUM CHLORIDE FLUSH SYRINGE 10 ML IV SCH ×3 (03:33→21:25)
[2018-12-22] MEDS ORDERED: INSULIN ASPART 10 UNIT SQ SCH (07:30)
[2018-12-22] MEDS ORDERED: HumaLOG SUB-Q SCH (07:30)
[2018-12-22] MEDS: DILAUDID IV PRN ×2 (08:11→13:51)
[2018-12-22] MEDS: LYRICA PO SCH ×6 (08:13→21:25)
[2018-12-22] MEDS: APRESOLINE IV PRN ×2 (08:21→12:33)
[2018-12-22] MEDS: HumaLOG SUB-Q SCH ×3 (08:50→18:17)
[2018-12-22] MEDS: APRESOLINE PO SCH ×3 (09:23→21:24)
[2018-12-22] MEDS: CATAPRES PO SCH ×2 (09:24→18:17)
[2018-12-22] MEDS ORDERED: INSULIN DETEMIR 35 UNIT SQ SCH (10:00)
[2018-12-22 10:35] LABS: Basophils # (Auto) 0.1 K/mm3 (0.0-0.1); Eosinophils # (Auto) 0.3 K/mm3 (0.0-0.4); Eosinophils % (Auto) 3.1 % (0.0-4.3); Hematocrit 40.2 % (30.3-42.9); Hemoglobin 13.4 gm/dl (10.1-14.3); Lymphocytes # (Auto) 3.7 K/mm3 (1.2-5.4); Lymphocytes % (Auto) 38.5 % (13.4-35.0); Mean Corpuscular HGB Conc 34 % (30-34); Mean Corpuscular Volume 91 fl (79-97); Monocytes # (Auto) 0.8 K/mm3 (0.0-0.8); Monocytes % (Auto) 7.9 % (0.0-7.3); Platelet Count 308 K/mm3 (140-440); Red Blood Count 4.41 M/mm3 (3.65-5.03); Red Cell Distribution Width 15.2 % (13.2-15.2)
[2018-12-22] MEDS ORDERED: ATIVAN IV NR (11:00)
[2018-12-22 11:05] LABS: Alanine Aminotransferase 16 units/L (7-56); Albumin 3.5 g/dL (3.9-5); BUN/Creatinine Ratio 17; Blood Urea Nitrogen 12 mg/dL (7-17); Calcium 8.9 mg/dL (8.4-10.2); Hemolysis Index 39
[2018-12-22] MEDS: PLAVIX PO SCH (12:32)
[2018-12-22] MEDS: PROzac PO SCH ×2 (12:32→21:25)
[2018-12-22] MEDS: PEPCID PO SCH ×2 (12:32→21:25)
[2018-12-22] MEDS: LANTUS SUB-Q SCH (13:38)
--- NOTE | 2018-12-22 14:12 | Progress Note ---
Assessment and Plan Assessment and plan: CVA with left sided weakness - CT head was done and showed chronic infarcts on the right ALPHONSO territory, v olume loss, no acute events seen - MRI, MRA, echo and carotid Doppler pending - Neurology consult placed, PT/OT Hypertension - Permissive hypertension - We'll monitor and restart medications if blood pressure is greater than 220 Diabetes mellitus - Continue insulin regimen, accucheck and ADA diet is insulin as needed Neuropathy - Continue pregabalin Disposition - Continue inpatient care History Interval history: Patient was seen and evaluated this morning, patient's complaining left-sided weakness and pain. Hospitalist Physical - Physical exam Narrative exam: Not in cardiopulmonary distress. The patient appeared well nourished and normally developed. Vital signs as documented. Head exam is unremarkable. No scleral icterus . Neck is without jugular venous distension, thyromegaly, or carotid bruits. Lungs are clear to auscultation. Cardiac exam reveals regular rate and Rhythm. Abdominal exam reveals normal bowel sounds. Extremities are nonedematous and both femoral and pedal pulses are normal. [employer]: Alert and oriented 3. Left-sided livier-paresis. - Constitutional Vitals: Temp Pulse Resp BP Pulse Ox 98.9 F 69 16 203/112 91 12/22/18 11:16 12/22/18 11:16 12/22/18 11:16 12/22/18 11:16 12/22/18 11:16 Results - Labs CBC & Chem 7: 12/22/18 09:30 12/22/18 09:30 Labs: Laboratory Last Values WBC 9.6 K/mm3 (4.5-11.0) 12/22/18 09:30 RBC 4.41 M/mm3 (3.65-5.03) 12/22/18 09:30 Hgb 13.4 gm/dl (10.1-14.3) 12/22/18 09:30 Hct 40.2 % (30.3-42.9) 12/22/18 09:30 MCV 91 fl (79-97) 12/22/18 09:30 MCH 30 pg (28-32) 12/22/18 09:30 MCHC 34 % (30-34) 12/22/18 09:30 RDW 15.2 % (13.2-15.2) 12/22/18 09:30 Plt Count 308 K/mm3 (140-440) 12/22/18 09:30 Lymph % (Auto) 38.5 % (13.4-35.0) H 12/22/18 09:30 [place] % (Auto) 7.9 % (0.0-7.3) H 12/22/18 09:30 Eos % (Auto) 3.1 % (0.0-4.3) 12/22/18 09:30 Baso % (Auto) 1.0 % (0.0-1.8) 12/22/18 09:30 Lymph # 3.7 K/mm3 (1.2-5.4) 12/22/18 09:30 [place] # 0.8 K/mm3 (0.0-0.8) 12/22/18 09:30 Eos # 0.3 K/mm3 (0.0-0.4) 12/22/18 09:30 Baso # 0.1 K/mm3 (0.0-0.1) 12/22/18 09:30 Seg Neutrophils % 49.5 % (40.0-70.0) 12/22/18 09:30 Seg Neutrophils # 4.8 K/mm3 (1.8-7.7) 12/22/18 09:30 PT 12.4 Sec. (12.2-14.9) 12/21/18 11:39 INR 0.87 (0.87-1.13) 12/21/18 11:39 APTT 26.2 Sec. (24.2-36.6) 12/21/18 11:39 Thrombin Time 15.8 Sec. (15.1-19.6) 12/21/18 11:39 Sodium 136 mmol/L (137-145) L 12/22/18 09:30 Potassium 4.2 mmol/L (3.6-5.0) 12/22/18 09:30 Chloride 98.0 mmol/L (98-107) 12/22/18 09:30 Carbon Dioxide 25 mmol/L (22-30) 12/22/18 09:30 Anion Gap 17 mmol/L 12/22/18 09:30 BUN 12 mg/dL (7-17) 12/22/18 09:30 Creatinine 0.7 mg/dL (0.7-1.2) 12/22/18 09:30 Estimated GFR > 60 ml/min 12/22/18 09:30 BUN/Creatinine Ratio 17 % 12/22/18 09:30 Glucose 213 mg/dL (65-100) H 12/22/18 09:30 POC Glucose 192 (70-105) H 12/22/18 11:17 Hemoglobin A1c 10.5 % (4-6) H 12/22/18 09:30 Calcium 8.9 mg/dL (8.4-10.2) 12/22/18 09:30 Total Bilirubin 0.30 mg/dL (0.1-1.2) 12/22/18 09:30 AST 19 units/L (5-40) 12/22/18 09:30 ALT 16 units/L (7-56) 12/22/18 09:30 Alkaline Phosphatase 116 units/L (35-129) 12/22/18 09:30 Troponin T < 0.010 ng/mL (0.00-0.029) 12/21/18 11:39 Total Protein 7.0 g/dL (6.3-8.2) 12/22/18 09:30 Albumin 3.5 g/dL (3.9-5) L 12/22/18 09:30 Albumin/Globulin Ratio 1.0 % 12/22/18 09:30 Active Medications - Current Medications Current Medications: Generic Name Dose Route Start Last Admin Trade Name Freq PRN Reason Stop Dose Admin Acetaminophen 650 mg 12/22/18 00:34 Tylenol PO Q4H PRN Pain MILD(1-3)/Fever >100.5/ROME Atorvastatin Calcium 40 mg 12/22/18 22:00 Lipitor PO QHS [facility] Clonidine HCl 0.4 mg 12/22/18 08:00 12/22/18 09:24 Catapres PO Not Given BID@0800,1700 MOISES Clopidogrel Bisulfate 75 mg 12/22/18 10:00 12/22/18 12:32 Plavix PO 75 mg DAILY MOISES Administration Famotidine 20 mg 12/22/18 10:00 12/22/18 12:32 Pepcid PO 20 mg BID MOISES Administration Fluoxetine HCl 40 mg 12/22/18 10:00 12/22/18 12:32 Prozac PO 40 mg BID MOISES Administration Furosemide 40 mg 12/22/18 01:00 12/22/18 12:32 Lasix PO 40 mg BID MOISES Administration Hydralazine HCl 40 mg 12/22/18 08:00 12/22/18 09:23 Apresoline PO Not Given TID MOISES Hydralazine HCl 10 mg 12/22/18 01:00 12/22/18 12:33 Apresoline IV 10 mg Q3H PRN Administration FOR SBP>180 Hydromorphone HCl 0.5 mg 12/21/18 18:10 12/22/18 13:51 Dilaudid IV 0.5 mg Q3H PRN Administration Pain , Severe (7-10) Hydromorphone HCl 0.5 mg 12/22/18 00:35 Dilaudid IV Q3H PRN Pain , Severe (7-10) Insulin Glargine 35 units 12/22/18 10:00 12/22/18 13:38 Lantus SUB-Q 35 units QAM MOISES Administration Insulin Human Lispro 10 unit 12/22/18 07:30 12/22/18 12:40 Humalog SUB-Q 10 unit AC MOISES Administration Lorazepam 1 mg 12/22/18 11:00 Ativan IV 12/22/18 16:00 ONCE NR Ondansetron HCl 4 mg 12/22/18 00:34 Zofran IV Q8H PRN Nausea And Vomiting Oxycodone/Acetaminophen 1 tab 12/22/18 00:35 Percocet 5/325 PO Q6H PRN Pain, Moderate (4-6) Pregabalin 225 mg 12/22/18 08:00 12/22/18 08:13 Lyrica PO 225 mg TID MOISES Administration Pregabalin 25 mg 12/22/18 08:00 12/22/18 08:13 Lyrica PO 25 mg TID MOISES Administration Sodium Chloride 10 ml 12/22/18 01:00 12/22/18 12:32 Sodium Chloride Flush Syringe 10 Ml IV 10 ml BID MOISES Administration Sodium Chloride 10 ml 12/22/18 00:34 Sodium Chloride Flush Syringe 10 Ml IV PRN PRN LINE FLUSH Zolpidem Tartrate 5 mg 12/22/18 00:31 Ambien PO QHS PRN Sleep
--- NOTE | 2018-12-22 15:29 | Vascular Lab Report ---
PROCEDURE: VL CAROTID DUPLEX BILAT TECHNIQUE: Duplex Doppler ultrasound examination of the cervical arteries bilaterally. Note: Measurement of carotid stenosis is based on flow velocity values that correlate with the [place] Symptomatic Carotid Endarterectomy Trial (NASCET) based stenosis criteria using the internal carotid artery diameter as the denominator for stenosis calculation. HISTORY: stroke COMPARISONS: 08/10/2018 FINDINGS: Intimal thickening is noted bilaterally throughout the carotid artery system but no significant plaqu e or calcification is demonstrated. Peak systolic CCA and ICA velocities are within normal limits bilaterally corresponding to estimated diameter stenosis of 0 to 49 %. Flow is antegrade in both vertebral arteries. No evidence of aneurysm or occlusion. IMPRESSION: Bilateral carotid artery minimal atherosclerotic change. No hemodynamically significant stenosis (<50% diameter) based on ratios, velocities, and color Dopple r images. This document is electronically signed by Iron Russell MD., December 22 2018 03:27:19 PM ET
--- NOTE | 2018-12-22 17:47 | Magnetic Resonance Report ---
PROCEDURE: MR BRAIN WO CON TECHNIQUE: MRI examination of the brain without IV contrast HISTORY: stroke , neurologic deficit COMPARISONS: Head CT 12/21/2018 FINDINGS: Multiple small foci of restricted diffusion are noted in the mid and upper right parietal lobe. There is corresponding abnormal T1, FLAIR, and T2 signal suggesting the lesion is at least 16 hours old. T hese findings are most compatible with areas of ischemia and/or ischemic infarction. They involve cor selena, subcortical white matter, and right centrum semiovale white matter. No acute fluid level in the included air filled sinuses. The brain is without mass, mass effect, or hemorrhage. There is no midline shift. Ventricles and sulci are age-appropriate. IMPRESSION: Multifocal punctate areas of restricted diffusion suggest ischemia and/or ischemic infarcts in the ri ght parietal lobe white matter and cortex. There is corresponding abnormal T1, FLAIR, and T2 signal s uggesting the lesion is at least 16 hours old. This document is electronically signed by Iron Russell MD., December 22 2018 05:45:13 PM ET
[2018-12-22] MEDS: HABITROL TD SCH (18:17)
--- NOTE | 2018-12-22 23:43 | Magnetic Resonance Report ---
PROCEDURE: MR MRA/MRV HEAD WO CON TECHNIQUE: Axial 3-D [id number] MR angiography of the [place] and brain was performed. The source images were reconstructed in various views using maximum intensity projection. HISTORY: stroke COMPARISONS: None . FINDINGS: Limited study due to motion artifacts Vertebral arteries: Normal . Basilar artery: Normal . Internal carotid arteries: Moderate degree stenosis involving the horizontal portion right cavernous carotid. . Anterior cerebral arteries: Normal . Middle cerebral arteries: There is decreased vascularity in the right MCA territory. . Mild to moder ate degree stenosis noted involving the origin of left middle cerebral artery. Posterior cerebral arteries: Normal . Branch occlusions: None . Vascular malformations: None . IMPRESSION:. Moderately limited study due to motion artifacts. Decreased vascularity of the right MCA territory. 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 Mild to moderate degree stenosis of the origin o f left MCA.. This document is electronically signed by Gómez Sims MD., December 22 2018 11:42:02 PM ET
[2018-12-23] MEDS: PERCOCET 5/325 PO PRN ×3 (00:45→18:06)
[2018-12-23 08:06] LABS: Chol/HDL Ratio 6.46 %
[2018-12-23] MEDS: LANTUS SUB-Q SCH (09:05)
[2018-12-23] MEDS: CATAPRES PO SCH (09:07)
[2018-12-23] MEDS: HumaLOG SUB-Q SCH ×3 (09:07→17:49)
[2018-12-23] MEDS: LYRICA PO SCH ×4 (09:08→22:30)
[2018-12-23] MEDS: HABITROL TD SCH (09:09)
[2018-12-23] MEDS: PLAVIX PO SCH (09:09)
[2018-12-23] MEDS: PROzac PO SCH ×2 (09:09→21:26)
[2018-12-23] MEDS: LASIX PO SCH ×2 (09:10→21:28)
[2018-12-23] MEDS: PEPCID PO SCH ×2 (09:10→21:29)
[2018-12-23] MEDS: SODIUM CHLORIDE FLUSH SYRINGE 10 ML IV SCH ×2 (09:11→21:29)
[2018-12-23] MEDS: APRESOLINE PO SCH ×3 (09:11→21:27)
--- NOTE | 2018-12-23 12:00 | Cat Scan Report ---
CT HEAD WITHOUT CONTRAST: HISTORY: CVA. Worsening weakness. TECHNIQUE: Sequential 2.5mm CT images. COMPARISON: CT head dated 12/21/18. MR brain dated 12/22/18. FINDINGS: Cerebral Parenchyma: Subtle areas of diminished attenuation are identified in the right MCA distribution. This appears unchanged since the previous MR brain dated 12/22/18. Chronic right ALPHONSO infarct is again noted. The remaining brain parenchyma remains within normal limits. Cerebellum: Within normal limits. Brainstem: Within normal limits. Ventricles: Normal. Sella: Normal. Extra-axial spaces: Normal. Basal Cisterns: Normal. Intracranial Hemorrhage: None. Midline Shift: None. Calvarium: Normal. Sinuses: Normal. Mastoid Air Cells: Normal. Visualized Orbits: Normal. IMPRESSION: Evolving subacute right MCA ischemic infarct which appears unchanged since MR brain dated 12/22/18. No new acute process or hemorrhage is identified.
--- NOTE | 2018-12-23 13:54 | Progress Note ---
Subjective Date of service: 12/23/18 Interval history: right hemisphere stroke in the right ALPHONSO disteibutiion meaning ECHO is important as could be embolic Objective - Vital Sign Vital Signs - 12hr 12/23/18 12/23/18 12/23/18 06:16 09:11 12:48 Temperature 97.8 F 98.4 F Pulse Rate 74 74 66 Respiratory 18 16 Rate Blood Pressure 148/93 148/93 101/64 O2 Sat by Pulse 95 98 Oximetry 12/23/18 13:21 Temperature Pulse Rate 74 Respiratory Rate Blood Pressure 101/64 O2 Sat by Pulse Oximetry - Laboratory Findings CBC and BMP: 12/22/18 09:30 12/23/18 07:22 Abnormal Lab Findings: Abnormal Labs 12/21/18 12/21/18 12/21/18 11:39 11:39 17:12 RDW 15.7 H Lymph % (Auto) [place] % (Auto) Sodium BUN 18 H Glucose 242 H POC Glucose 309 H Hemoglobin A1c Albumin Triglycerides Cholesterol LDL Cholesterol Direct 12/21/18 12/22/18 12/22/18 21:44 08:09 09:30 RDW Lymph % (Auto) 38.5 H [place] % (Auto) 7.9 H Sodium BUN Glucose POC Glucose 233 H 186 H Hemoglobin A1c Albumin Triglycerides Cholesterol LDL Cholesterol Direct 12/22/18 12/22/18 12/22/18 09:30 09:30 11:17 RDW Lymph % (Auto) [place] % (Auto) Sodium 136 L BUN Glucose 213 H POC Glucose 192 H Hemoglobin A1c 10.5 H Albumin 3.5 L Triglycerides Cholesterol LDL Cholesterol Direct 12/22/18 12/23/18 12/23/18 17:05 07:22 07:59 RDW Lymph % (Auto) [place] % (Auto) Sodium 135 L BUN 21 H Glucose 183 H POC Glucose 160 H 157 H Hemoglobin A1c Albumin Triglycerides 160 H Cholesterol 278 H LDL Cholesterol Direct 225 H 12/23/18 11:50 RDW Lymph % (Auto) [place] % (Auto) Sodium BUN Glucose POC Glucose 240 H Hemoglobin A1c Albumin Triglycerides Cholesterol LDL Cholesterol Direct
--- NOTE | 2018-12-23 14:04 | Progress Note ---
Assessment and Plan Assessment and plan: CVA with left sided weakness - CT head was done and showed chronic infarcts on the right ALPHONSO territory, v olume loss, no acute events seen - MRI showed right-sided CVA, carotid Doppler normal, pending echo - Neurology consulted and recommended to get echo for possible embolic stroke - PT/OT Hypertension - Permissive hypertension - We'll monitor and restart medications if blood pressure is greater than 220 Diabetes mellitus - Continue insulin regimen, accucheck and ADA diet is insulin as needed Neuropathy - D/C pregabalin because it causes her drowsy Disposition - Continue inpatient care History Interval history: Patient was seen and evaluated this morning, patient's complaining left-sided weakness, no improvement. Hospitalist Physical - Physical exam Narrative exam: Not in cardiopulmonary distress. The patient appeared well nourished and normally developed. Vital signs as documented. Head exam is unremarkable. No scleral icterus . Neck is without jugular venous distension, thyromegaly, or carotid bruits. Lungs are clear to auscultation. Cardiac exam reveals regular rate and Rhythm. Abdominal exam reveals normal bowel sounds. Extremities are nonedematous and both femoral and pedal pulses are normal. DIRECTOR OF COMMUNITY SERVICES: Alert and oriented 3. Left-sided livier-paresis. - Constitutional Vitals: Temp Pulse Resp BP Pulse Ox 98.4 F 74 16 101/64 98 12/23/18 12:48 12/23/18 13:21 12/23/18 12:48 12/23/18 13:21 12/23/18 12:48 Results - Labs CBC & Chem 7: 12/22/18 09:30 12/23/18 07:22 Labs: Laboratory Last Values WBC 9.6 K/mm3 (4.5-11.0) 12/22/18 09:30 RBC 4.41 M/mm3 (3.65-5.03) 12/22/18 09:30 Hgb 13.4 gm/dl (10.1-14.3) 12/22/18 09:30 Hct 40.2 % (30.3-42.9) 12/22/18 09:30 MCV 91 fl (79-97) 12/22/18 09:30 MCH 30 pg (28-32) 12/22/18 09:30 MCHC 34 % (30-34) 12/22/18 09:30 RDW 15.2 % (13.2-15.2) 12/22/18 09:30 Plt Count 308 K/mm3 (140-440) 12/22/18 09:30 Lymph % (Auto) 38.5 % (13.4-35.0) H 12/22/18 09:30 [place] % (Auto) 7.9 % (0.0-7.3) H 12/22/18 09:30 Eos % (Auto) 3.1 % (0.0-4.3) 12/22/18 09:30 Baso % (Auto) 1.0 % (0.0-1.8) 12/22/18 09:30 Lymph # 3.7 K/mm3 (1.2-5.4) 12/22/18 09:30 [place] # 0.8 K/mm3 (0.0-0.8) 12/22/18 09:30 Eos # 0.3 K/mm3 (0.0-0.4) 12/22/18 09:30 Baso # 0.1 K/mm3 (0.0-0.1) 12/22/18 09:30 Seg Neutrophils % 49.5 % (40.0-70.0) 12/22/18 09:30 Seg Neutrophils # 4.8 K/mm3 (1.8-7.7) 12/22/18 09:30 PT 12.4 Sec. (12.2-14.9) 12/21/18 11:39 INR 0.87 (0.87-1.13) 12/21/18 11:39 APTT 26.2 Sec. (24.2-36.6) 12/21/18 11:39 Thrombin Time 15.8 Sec. (15.1-19.6) 12/21/18 11:39 Sodium 135 mmol/L (137-145) L 12/23/18 07:22 Potassium 4.1 mmol/L (3.6-5.0) 12/23/18 07:22 Chloride 99.8 mmol/L (98-107) 12/23/18 07:22 Carbon Dioxide 27 mmol/L (22-30) 12/23/18 07:22 Anion Gap 12 mmol/L 12/23/18 07:22 BUN 21 mg/dL (7-17) H 12/23/18 07:22 Creatinine 1.2 mg/dL (0.7-1.2) D 12/23/18 07:22 Estimated GFR 58 ml/min 12/23/18 07:22 BUN/Creatinine Ratio 18 % 12/23/18 07:22 Glucose 183 mg/dL (65-100) H 12/23/18 07:22 POC Glucose 240 (70-105) H 12/23/18 11:50 Hemoglobin A1c 10.5 % (4-6) H 12/22/18 09:30 Calcium 9.0 mg/dL (8.4-10.2) 12/23/18 07:22 Total Bilirubin 0.30 mg/dL (0.1-1.2) 12/22/18 09:30 AST 19 units/L (5-40) 12/22/18 09:30 ALT 16 units/L (7-56) 12/22/18 09:30 Alkaline Phosphatase 116 units/L (35-129) 12/22/18 09:30 Troponin T < 0.010 ng/mL (0.00-0.029) 12/21/18 11:39 Total Protein 7.0 g/dL (6.3-8.2) 12/22/18 09:30 Albumin 3.5 g/dL (3.9-5) L 12/22/18 09:30 Albumin/Globulin Ratio 1.0 % 12/22/18 09:30 Triglycerides 160 mg/dL (2-149) H 12/23/18 07:22 Cholesterol 278 mg/dL (50-199) H 12/23/18 07:22 LDL Cholesterol Direct 225 mg/dL (50-130) H 12/23/18 07:22 HDL Cholesterol 43 mg/dL (40-59) 12/23/18 07:22 Cholesterol/HDL Ratio 6.46 % 12/23/18 07:22 Active Medications - Current Medications Current Medications: Generic Name Dose Route Start Last Admin Trade Name Freq PRN Reason Stop Dose Admin Acetaminophen 650 mg 12/22/18 00:34 Tylenol PO Q4H PRN Pain MILD(1-3)/Fever >100.5/ROME Aspirin 325 mg 12/23/18 14:00 Aspirin PO QDAY MOISES Atorvastatin Calcium 40 mg 12/22/18 22:00 12/22/18 21:24 Lipitor PO 40 mg QHS MOISES Administration Clopidogrel Bisulfate 75 mg 12/22/18 10:00 12/23/18 09:09 Plavix PO 75 mg DAILY MOISES Administration Famotidine 20 mg 12/22/18 10:00 12/23/18 09:10 Pepcid PO 20 mg BID MOISES Administration Fluoxetine HCl 40 mg 12/22/18 10:00 12/23/18 09:09 Prozac PO 40 mg BID MOISES Administration Furosemide 40 mg 12/22/18 01:00 12/23/18 09:10 Lasix PO 40 mg BID MOISES Administration Hydralazine HCl 40 mg 12/22/18 08:00 12/23/18 13:21 Apresoline PO Not Given TID [facility] Insulin Glargine 35 units 12/22/18 10:00 12/23/18 09:05 Lantus SUB-Q 35 units QAM MOISES Administration Insulin Human Lispro 10 unit 12/22/18 07:30 12/23/18 09:07 Humalog SUB-Q 10 unit AC [facility] Administration Nicotine 14 mg 12/22/18 16:00 12/23/18 09:09 Habitrol TD 14 mg QDAY [facility] Administration Ondansetron HCl 4 mg 12/22/18 00:34 Zofran IV Q8H PRN Nausea And Vomiting Oxycodone/Acetaminophen 1 tab 12/22/18 00:35 12/23/18 06:34 Percocet 5/325 PO 1 tab Q6H PRN Administration Pain, Moderate (4-6) Pregabalin 225 mg 12/22/18 08:00 12/23/18 13:22 Lyrica PO Not Given TID MOISES Sodium Chloride 10 ml 12/22/18 01:00 12/23/18 09:11 Sodium Chloride Flush Syringe 10 Ml IV 10 ml BID MOISES Administration Sodium Chloride 10 ml 12/22/18 00:34 Sodium Chloride Flush Syringe 10 Ml IV PRN PRN LINE FLUSH Zolpidem Tartrate 5 mg 12/22/18 00:31 Ambien PO QHS PRN Sleep
[2018-12-23] MEDS: ASPIRIN PO SCH (14:26)
[2018-12-24] MEDS ORDERED: NACL 0.9% 1000 ML 1,000 ML IV SCH (08:00)
[2018-12-24] MEDS: LANTUS SUB-Q SCH (09:54)
[2018-12-24] MEDS: PROzac PO SCH ×2 (10:35→21:24)
[2018-12-24] MEDS: PERCOCET 5/325 PO PRN ×2 (10:36→14:19)
[2018-12-24] MEDS: PLAVIX PO SCH (10:37)
[2018-12-24] MEDS: PEPCID PO SCH ×2 (10:37→21:23)
[2018-12-24] MEDS: HABITROL TD SCH (10:37)
[2018-12-24] MEDS: HumaLOG SUB-Q SCH ×3 (10:37→18:55)
[2018-12-24] MEDS: ASPIRIN PO SCH (10:38)
[2018-12-24] MEDS: SODIUM CHLORIDE FLUSH SYRINGE 10 ML IV SCH ×2 (10:38→21:24)
--- NOTE | 2018-12-24 10:40 | Progress Note ---
Assessment and Plan Assessment and plan: CVA with left sided weakness - CT head was done and showed chronic infarcts on the right ALPHONSO territory, v olume loss, no acute events seen - MRI showed right-sided CVA, carotid Doppler normal, Echo showed no vegetation - Neurology consulted and recommended to get echo for possible embolic stroke - PT/OT Hypertension - Permissive hypertension - Will restart her medications as needed Diabetes mellitus - Continue insulin regimen, accucheck and ADA diet is insulin as needed Neuropathy - D/C pregabalin because it causes her drowsy Disposition - pending acute rehab placement. History Interval history: Patient was seen and evaluated this morning, left-sided hemiparesis, no new complaints. Hospitalist Physical - Physical exam Narrative exam: Not in cardiopulmonary distress. The patient appeared well nourished and normally developed. Vital signs as documented. Head exam is unremarkable. No scleral icterus . Neck is without jugular venous distension, thyromegaly, or carotid bruits. Lungs are clear to auscultation. Cardiac exam reveals regular rate and Rhythm. Abdominal exam reveals normal bowel sounds. Extremities are nonedematous and both femoral and pedal pulses are normal. POST ANESTHESIA NURSE: Alert and oriented 3. Left-sided livier-paresis. - Constitutional Vitals: Temp Pulse Resp BP Pulse Ox 99.0 F 61 20 167/104 96 12/24/18 05:31 12/24/18 05:31 12/24/18 05:31 12/24/18 05:31 12/24/18 05:31 Results - Labs CBC & Chem 7: 12/22/18 09:30 12/23/18 07:22 Labs: Laboratory Last Values WBC 9.6 K/mm3 (4.5-11.0) 12/22/18 09:30 RBC 4.41 M/mm3 (3.65-5.03) 12/22/18 09:30 Hgb 13.4 gm/dl (10.1-14.3) 12/22/18 09:30 Hct 40.2 % (30.3-42.9) 12/22/18 09:30 MCV 91 fl (79-97) 12/22/18 09:30 MCH 30 pg (28-32) 12/22/18 09:30 MCHC 34 % (30-34) 12/22/18 09:30 RDW 15.2 % (13.2-15.2) 12/22/18 09:30 Plt Count 308 K/mm3 (140-440) 12/22/18 09:30 Lymph % (Auto) 38.5 % (13.4-35.0) H 12/22/18 09:30 [place] % (Auto) 7.9 % (0.0-7.3) H 12/22/18 09:30 Eos % (Auto) 3.1 % (0.0-4.3) 12/22/18 09:30 Baso % (Auto) 1.0 % (0.0-1.8) 12/22/18 09:30 Lymph # 3.7 K/mm3 (1.2-5.4) 12/22/18 09:30 [place] # 0.8 K/mm3 (0.0-0.8) 12/22/18 09:30 Eos # 0.3 K/mm3 (0.0-0.4) 12/22/18 09:30 Baso # 0.1 K/mm3 (0.0-0.1) 12/22/18 09:30 Seg Neutrophils % 49.5 % (40.0-70.0) 12/22/18 09:30 Seg Neutrophils # 4.8 K/mm3 (1.8-7.7) 12/22/18 09:30 PT 12.4 Sec. (12.2-14.9) 12/21/18 11:39 INR 0.87 (0.87-1.13) 12/21/18 11:39 APTT 26.2 Sec. (24.2-36.6) 12/21/18 11:39 Thrombin Time 15.8 Sec. (15.1-19.6) 12/21/18 11:39 Sodium 135 mmol/L (137-145) L 12/23/18 07:22 Potassium 4.1 mmol/L (3.6-5.0) 12/23/18 07:22 Chloride 99.8 mmol/L (98-107) 12/23/18 07:22 Carbon Dioxide 27 mmol/L (22-30) 12/23/18 07:22 Anion Gap 12 mmol/L 12/23/18 07:22 BUN 21 mg/dL (7-17) H 12/23/18 07:22 Creatinine 1.2 mg/dL (0.7-1.2) D 12/23/18 07:22 Estimated GFR 58 ml/min 12/23/18 07:22 BUN/Creatinine Ratio 18 % 12/23/18 07:22 Glucose 183 mg/dL (65-100) H 12/23/18 07:22 POC Glucose 217 (70-105) H 12/24/18 08:30 Hemoglobin A1c 10.5 % (4-6) H 12/22/18 09:30 Calcium 9.0 mg/dL (8.4-10.2) 12/23/18 07:22 Total Bilirubin 0.30 mg/dL (0.1-1.2) 12/22/18 09:30 AST 19 units/L (5-40) 12/22/18 09:30 ALT 16 units/L (7-56) 12/22/18 09:30 Alkaline Phosphatase 116 units/L (35-129) 12/22/18 09:30 Troponin T < 0.010 ng/mL (0.00-0.029) 12/21/18 11:39 Total Protein 7.0 g/dL (6.3-8.2) 12/22/18 09:30 Albumin 3.5 g/dL (3.9-5) L 12/22/18 09:30 Albumin/Globulin Ratio 1.0 % 12/22/18 09:30 Triglycerides 160 mg/dL (2-149) H 12/23/18 07:22 Cholesterol 278 mg/dL (50-199) H 12/23/18 07:22 LDL Cholesterol Direct 225 mg/dL (50-130) H 12/23/18 07:22 HDL Cholesterol 43 mg/dL (40-59) 12/23/18 07:22 Cholesterol/HDL Ratio 6.46 % 12/23/18 07:22 Active Medications - Current Medications Current Medications: Generic Name Dose Route Start Last Admin Trade Name Freq PRN Reason Stop Dose Admin Acetaminophen 650 mg 12/22/18 00:34 Tylenol PO Q4H PRN Pain MILD(1-3)/Fever >100.5/ROME Aspirin 325 mg 12/23/18 14:00 12/23/18 14:26 Aspirin PO 325 mg QDAY MOISES Administration Atorvastatin Calcium 40 mg 12/22/18 22:00 12/23/18 21:28 Lipitor PO 40 mg QHS MOISES Administration Clopidogrel Bisulfate 75 mg 12/22/18 10:00 12/23/18 09:09 Plavix PO 75 mg DAILY [facility] Administration Famotidine 20 mg 12/22/18 10:00 12/23/18 21:29 Pepcid PO 20 mg BID MOISES Administration Fluoxetine HCl 40 mg 12/22/18 10:00 12/23/18 21:26 Prozac PO 40 mg BID MOISES Administration Hydralazine HCl 50 mg 12/24/18 10:02 Apresoline PO Q8HR [facility] Sodium Chloride 1,000 mls @ 100 mls/hr 12/24/18 08:00 Nacl 0.9% 1000 Ml IV 12/24/18 23:59 DIRECT [facility] Insulin Glargine 35 units 12/22/18 10:00 12/24/18 09:54 Lantus SUB-Q 35 units QAM [facility] Administration Insulin Human Lispro 10 unit 12/22/18 07:30 12/23/18 17:49 Humalog SUB-Q Not Given [facility] Nicotine 14 mg 12/22/18 16:00 12/23/18 09:09 Habitrol TD 14 mg QDAY [facility] Administration Ondansetron HCl 4 mg 12/22/18 00:34 Zofran IV Q8H PRN Nausea And Vomiting Oxycodone/Acetaminophen 1 tab 12/24/18 10:01 Percocet 5/325 PO Q4H PRN Pain, Moderate (4-6) Sodium Chloride 10 ml 12/22/18 01:00 12/23/18 21:29 Sodium Chloride Flush Syringe 10 Ml IV 10 ml BID MOISES Administration Sodium Chloride 10 ml 12/22/18 00:34 Sodium Chloride Flush Syringe 10 Ml IV PRN PRN LINE FLUSH
[2018-12-24] MEDS: APRESOLINE PO SCH ×3 (10:52→21:23)
--- NOTE | 2018-12-24 13:42 | Progress Note ---
Subjective Date of service: 12/24/18 Interval history: no clot seen on the ECHO but minimal calcification of the valve doubt emboli based on echo review see my note on the distribution of the stroke Thanks Objective - Vital Sign Vital Signs - 12hr 12/24/18 05:31 Temperature 99.0 F Pulse Rate 61 Respiratory 20 Rate Blood Pressure 167/104 O2 Sat by Pulse 96 Oximetry - Laboratory Findings CBC and BMP: 12/22/18 09:30 12/23/18 07:22 Abnormal Lab Findings: Abnormal Labs 12/21/18 12/21/18 12/21/18 11:39 11:39 17:12 RDW 15.7 H Lymph % (Auto) [place] % (Auto) Sodium BUN 18 H Glucose 242 H POC Glucose 309 H Hemoglobin A1c Albumin Triglycerides Cholesterol LDL Cholesterol Direct 12/21/18 12/22/18 12/22/18 21:44 08:09 09:30 RDW Lymph % (Auto) 38.5 H [place] % (Auto) 7.9 H Sodium BUN Glucose POC Glucose 233 H 186 H Hemoglobin A1c Albumin Triglycerides Cholesterol LDL Cholesterol Direct 12/22/18 12/22/18 12/22/18 09:30 09:30 11:17 RDW Lymph % (Auto) [place] % (Auto) Sodium 136 L BUN Glucose 213 H POC Glucose 192 H Hemoglobin A1c 10.5 H Albumin 3.5 L Triglycerides Cholesterol LDL Cholesterol Direct 12/22/18 12/23/18 12/23/18 17:05 07:22 07:59 RDW Lymph % (Auto) [place] % (Auto) Sodium 135 L BUN 21 H Glucose 183 H POC Glucose 160 H 157 H Hemoglobin A1c Albumin Triglycerides 160 H Cholesterol 278 H LDL Cholesterol Direct 225 H 12/23/18 12/23/18 12/24/18 11:50 21:43 08:30 RDW Lymph % (Auto) [place] % (Auto) Sodium BUN Glucose POC Glucose 240 H 162 H 217 H Hemoglobin A1c Albumin Triglycerides Cholesterol LDL Cholesterol Direct 12/24/18 12:10 RDW Lymph % (Auto) [place] % (Auto) Sodium BUN Glucose POC Glucose 190 H Hemoglobin A1c Albumin Triglycerides Cholesterol LDL Cholesterol Direct
--- NOTE | 2018-12-24 23:23 | Consultation ---
HISTORY OF PRESENT ILLNESS: This patient is a 48 black female that presents to the Emergency Room on 12/21/2018. She presented with the onset of left arm and left leg weakness and she was having slurred speech. She had a recent history of CVA in August. At that point, the patient had also had a GI bleed and hit her head 2 days ago. The patient was subsequently seen. She was noted to have weakness of her right arm and right leg. She had been taking Plavix, Lipitor, Catapres and nitrofurantoin. She presented to the Emergency Room with prior history of weakness and small stroke leaving her weak on her left side. Examination of the patient reveals her to be alert, appropriate. Neck is supple. Speech is clear. Left-sided weakness is present of face, arm, and leg. Cranial nerves 2 through 12 are otherwise intact with only hand and left facial weakness. Ocular movements are full. Pupils are equal, round, reactive to light. No drift to the extremities is present, otherwise. The patient has weakness of gait with noticeable limp of her left leg. IMPRESSION: This patient has a right anterior cerebral artery stroke. To some extent, the stroke is bilateral. I suspect that she has only flow coming through the anterior cerebral predominantly from the left side and accounting for what appears to be bifrontal ischemia, which is somewhat typical. The cause of this is diabetes and high blood pressure with blood pressure being 170/100 and blood sugar being elevated at 242. Recommendations are PT, rehab. Continue Plavix and aspirin. We will get echocardiogram to further assess. JOB# [id number] ANNE/NTS
[2018-12-25] MEDS: PERCOCET 5/325 PO PRN ×4 (00:58→22:25)
[2018-12-25] MEDS: APRESOLINE PO SCH ×3 (06:17→22:30)
[2018-12-25] MEDS: LANTUS SUB-Q SCH (08:00)
[2018-12-25] MEDS: HumaLOG SUB-Q SCH ×3 (08:50→18:35)
[2018-12-25] MEDS: ASPIRIN PO SCH (10:00)
[2018-12-25] MEDS: PLAVIX PO SCH (10:53)
[2018-12-25] MEDS: PROzac PO SCH ×2 (10:54→22:30)
[2018-12-25] MEDS: PEPCID PO SCH ×2 (10:54→22:32)
[2018-12-25] MEDS: HABITROL TD SCH (10:55)
[2018-12-25] MEDS ORDERED: NORMODYNE IV ONE (11:00)
[2018-12-25] MEDS: SODIUM CHLORIDE FLUSH SYRINGE 10 ML IV SCH ×2 (13:02→22:33)
--- NOTE | 2018-12-25 13:29 | Progress Note ---
Assessment and Plan Assessment and plan: CVA with left sided weakness - CT head was done and showed chronic infarcts on the right ALPHONSO territory, v olume loss, no acute events seen - MRI showed right-sided CVA, carotid Doppler normal, Echo showed no vegetation - Neurology consult appreciated - PT/OT fall down injury, on the left face - CT of the face was ordered and will follow the result Hypertension - Permissive hypertension - Will restart her medications as needed Diabetes mellitus - Continue insulin regimen, accucheck and ADA diet is insulin as needed Neuropathy - D/C pregabalin because it causes her drowsy Disposition - pending acute rehab placement. History Interval history: Patient was seen and evaluated this morning, left-sided hemiparesis, patient fell this morning, when she tries to get out of the bed. She injured her left face and has bruise and swelling Hospitalist Physical - Physical exam Narrative exam: Not in cardiopulmonary distress. The patient appeared well nourished and normally developed. Vital signs as documented. Head exam is unremarkable. Bruise and swelling on the face No scleral icterus . Neck is without jugular venous distension, thyromegaly, or carotid bruits. Lungs are clear to auscultation. Cardiac exam reveals regular rate and Rhythm. Abdominal exam reveals normal bowel sounds. Extremities are nonedematous and both femoral and pedal pulses are normal. GERENTOLOGICAL PHYSIOTHERAPIST: Alert and oriented 3. Left-sided livier-paresis. - Constitutional Vitals: Temp Pulse Resp BP Pulse Ox 99.3 F 72 20 224/121 95 12/25/18 06:17 12/25/18 11:32 12/25/18 06:17 12/25/18 11:32 12/25/18 06:17 Results - Labs CBC & Chem 7: 12/22/18 09:30 12/23/18 07:22 Labs: Laboratory Last Values WBC 9.6 K/mm3 (4.5-11.0) 12/22/18 09:30 RBC 4.41 M/mm3 (3.65-5.03) 12/22/18 09:30 Hgb 13.4 gm/dl (10.1-14.3) 12/22/18 09:30 Hct 40.2 % (30.3-42.9) 12/22/18 09:30 MCV 91 fl (79-97) 12/22/18 09:30 MCH 30 pg (28-32) 12/22/18 09:30 MCHC 34 % (30-34) 12/22/18 09:30 RDW 15.2 % (13.2-15.2) 12/22/18 09:30 Plt Count 308 K/mm3 (140-440) 12/22/18 09:30 Lymph % (Auto) 38.5 % (13.4-35.0) H 12/22/18 09:30 [place] % (Auto) 7.9 % (0.0-7.3) H 12/22/18 09:30 Eos % (Auto) 3.1 % (0.0-4.3) 12/22/18 09:30 Baso % (Auto) 1.0 % (0.0-1.8) 12/22/18 09:30 Lymph # 3.7 K/mm3 (1.2-5.4) 12/22/18 09:30 [place] # 0.8 K/mm3 (0.0-0.8) 12/22/18 09:30 Eos # 0.3 K/mm3 (0.0-0.4) 12/22/18 09:30 Baso # 0.1 K/mm3 (0.0-0.1) 12/22/18 09:30 Seg Neutrophils % 49.5 % (40.0-70.0) 12/22/18 09:30 Seg Neutrophils # 4.8 K/mm3 (1.8-7.7) 12/22/18 09:30 PT 12.4 Sec. (12.2-14.9) 12/21/18 11:39 INR 0.87 (0.87-1.13) 12/21/18 11:39 APTT 26.2 Sec. (24.2-36.6) 12/21/18 11:39 Thrombin Time 15.8 Sec. (15.1-19.6) 12/21/18 11:39 Sodium 135 mmol/L (137-145) L 12/23/18 07:22 Potassium 4.1 mmol/L (3.6-5.0) 12/23/18 07:22 Chloride 99.8 mmol/L (98-107) 12/23/18 07:22 Carbon Dioxide 27 mmol/L (22-30) 12/23/18 07:22 Anion Gap 12 mmol/L 12/23/18 07:22 BUN 21 mg/dL (7-17) H 12/23/18 07:22 Creatinine 1.2 mg/dL (0.7-1.2) D 12/23/18 07:22 Estimated GFR 58 ml/min 12/23/18 07:22 BUN/Creatinine Ratio 18 % 12/23/18 07:22 Glucose 183 mg/dL (65-100) H 12/23/18 07:22 POC Glucose 175 (70-105) H 12/25/18 11:26 Hemoglobin A1c 10.5 % (4-6) H 12/22/18 09:30 Calcium 9.0 mg/dL (8.4-10.2) 12/23/18 07:22 Total Bilirubin 0.30 mg/dL (0.1-1.2) 12/22/18 09:30 AST 19 units/L (5-40) 12/22/18 09:30 ALT 16 units/L (7-56) 12/22/18 09:30 Alkaline Phosphatase 116 units/L (35-129) 12/22/18 09:30 Troponin T < 0.010 ng/mL (0.00-0.029) 12/21/18 11:39 Total Protein 7.0 g/dL (6.3-8.2) 12/22/18 09:30 Albumin 3.5 g/dL (3.9-5) L 12/22/18 09:30 Albumin/Globulin Ratio 1.0 % 12/22/18 09:30 Triglycerides 160 mg/dL (2-149) H 12/23/18 07:22 Cholesterol 278 mg/dL (50-199) H 12/23/18 07:22 LDL Cholesterol Direct 225 mg/dL (50-130) H 12/23/18 07:22 HDL Cholesterol 43 mg/dL (40-59) 12/23/18 07:22 Cholesterol/HDL Ratio 6.46 % 12/23/18 07:22 Active Medications - Current Medications Current Medications: Generic Name Dose Route Start Last Admin Trade Name Freq PRN Reason Stop Dose Admin Acetaminophen 650 mg 12/22/18 00:34 Tylenol PO Q4H PRN Pain MILD(1-3)/Fever >100.5/ROME Aspirin 325 mg 12/23/18 14:00 12/24/18 10:38 Aspirin PO 325 mg QDAY MOISES Administration Atorvastatin Calcium 40 mg 12/22/18 22:00 12/24/18 21:23 Lipitor PO 40 mg QHS MOISES Administration Clopidogrel Bisulfate 75 mg 12/22/18 10:00 12/25/18 10:53 Plavix PO 75 mg DAILY MOISES Administration Famotidine 20 mg 12/22/18 10:00 12/25/18 10:54 Pepcid PO 20 mg BID MOISES Administration Fluoxetine HCl 40 mg 12/22/18 10:00 12/25/18 10:54 Prozac PO 40 mg BID MOISES Administration Hydralazine HCl 50 mg 12/24/18 10:02 12/25/18 06:17 Apresoline PO 50 mg Q8HR MOISES Administration Insulin Glargine 35 units 12/22/18 10:00 12/24/18 09:54 Lantus SUB-Q 35 units QAM MOISES Administration Insulin Human Lispro 10 unit 12/22/18 07:30 12/25/18 13:01 Humalog SUB-Q 10 unit AC MOISES Administration Nicotine 14 mg 12/22/18 16:00 12/25/18 10:55 Habitrol TD 14 mg QDAY MOISES Administration Ondansetron HCl 4 mg 12/22/18 00:34 Zofran IV Q8H PRN Nausea And Vomiting Oxycodone/Acetaminophen 1 tab 12/24/18 10:01 12/25/18 10:54 Percocet 5/325 PO 1 tab Q4H PRN Administration Pain, Moderate (4-6) Sodium Chloride 10 ml 12/22/18 01:00 12/25/18 13:02 Sodium Chloride Flush Syringe 10 Ml IV 10 ml BID MOISES Administration Sodium Chloride 10 ml 12/22/18 00:34 Sodium Chloride Flush Syringe 10 Ml IV PRN PRN LINE FLUSH
--- NOTE | 2018-12-25 17:52 | Cat Scan Report ---
PROCEDURE: CT FACIAL BONES WO CON TECHNIQUE: Standard unenhanced CT facial bones at 2.5mm axial increments with coronal and sagittal re construction CT DOSE LENGTH PRODUCT: 1140.7 mGycm HISTORY: fall PRIORS: None FINDINGS: No evidence for acute bony fracture is noted. There is significant soft tissue swelling over the left cheek. A focal well-defined hyperdense area w ithin this swelling measures 2.9 x 3.1 x 2.2 cm corresponding with a focal area of hematoma (axial im age 35/68, coronal image ). The soft tissue swelling also extends anterior to the left orbit. The frontal, ethmoid, maxillary, and sphenoid sinuses are clear with no evidence for air-fluid levels or mucosal thickening. Nasal septum is midline. The orbits are intact. The orbital globes are normal. The visualized mastoid air cells are also clear. IMPRESSION: No evidence for acute fracture. Soft tissue swelling with hematoma overlying the left marquise ek and left orbit This document is electronically signed by Jaja Matamoros MD., December 25 2018 05:50:11 PM ET
[2018-12-25] MEDS: APRESOLINE IV PRN (19:31)
[2018-12-26] MEDS ORDERED: APRESOLINE IV ONE (06:09)
[2018-12-26] MEDS: PERCOCET 5/325 PO PRN ×3 (06:21→21:35)
[2018-12-26] MEDS: APRESOLINE PO SCH ×3 (06:22→20:40)
[2018-12-26] MEDS ORDERED: NORMODYNE IV STA (08:01)
[2018-12-26] MEDS: PROCARDIA XL PO SCH ×2 (08:20→09:22)
[2018-12-26] MEDS: LANTUS SUB-Q SCH (09:13)
[2018-12-26] MEDS: HumaLOG SUB-Q SCH ×3 (09:13→16:50)
[2018-12-26] MEDS: PROzac PO SCH ×2 (09:21→21:32)
[2018-12-26] MEDS: HABITROL TD SCH (09:21)
[2018-12-26] MEDS: ASPIRIN PO SCH (09:21)
[2018-12-26] MEDS: PLAVIX PO SCH (09:21)
[2018-12-26] MEDS: PEPCID PO SCH ×2 (09:21→21:32)
[2018-12-26] MEDS: SODIUM CHLORIDE FLUSH SYRINGE 10 ML IV SCH ×2 (09:23→21:39)
--- NOTE | 2018-12-26 10:52 | Progress Note ---
Subjective Date of service: 12/26/18 Interval history: reviewed all labs and re-assessed the patient she is making good progress in stroke recovery VS are notes and will continue to monitor closely Objective - Vital Sign Vital Signs - 12hr 12/26/18 12/26/18 12/26/18 04:46 06:19 06:22 Temperature 99.0 F Pulse Rate 75 76 76 Respiratory 20 Rate Blood Pressure 205/117 205/117 205/117 O2 Sat by Pulse 97 Oximetry - Laboratory Findings CBC and BMP: 12/22/18 09:30 12/23/18 07:22 Abnormal Lab Findings: Abnormal Labs 12/21/18 12/21/18 12/21/18 11:39 11:39 17:12 RDW 15.7 H Lymph % (Auto) [place] % (Auto) Sodium BUN 18 H Glucose 242 H POC Glucose 309 H Hemoglobin A1c Albumin Triglycerides Cholesterol LDL Cholesterol Direct 12/21/18 12/22/18 12/22/18 21:44 08:09 09:30 RDW Lymph % (Auto) 38.5 H [place] % (Auto) 7.9 H Sodium BUN Glucose POC Glucose 233 H 186 H Hemoglobin A1c Albumin Triglycerides Cholesterol LDL Cholesterol Direct 12/22/18 12/22/18 12/22/18 09:30 09:30 11:17 RDW Lymph % (Auto) [place] % (Auto) Sodium 136 L BUN Glucose 213 H POC Glucose 192 H Hemoglobin A1c 10.5 H Albumin 3.5 L Triglycerides Cholesterol LDL Cholesterol Direct 12/22/18 12/23/18 12/23/18 17:05 07:22 07:59 RDW Lymph % (Auto) [place] % (Auto) Sodium 135 L BUN 21 H Glucose 183 H POC Glucose 160 H 157 H Hemoglobin A1c Albumin Triglycerides 160 H Cholesterol 278 H LDL Cholesterol Direct 225 H 12/23/18 12/23/18 12/24/18 11:50 21:43 08:30 RDW Lymph % (Auto) [place] % (Auto) Sodium BUN Glucose POC Glucose 240 H 162 H 217 H Hemoglobin A1c Albumin Triglycerides Cholesterol LDL Cholesterol Direct 12/24/18 12/24/18 12/24/18 12:10 17:23 21:36 RDW Lymph % (Auto) [place] % (Auto) Sodium BUN Glucose POC Glucose 190 H 123 H 280 H Hemoglobin A1c Albumin Triglycerides Cholesterol LDL Cholesterol Direct 12/25/18 12/25/18 12/25/18 07:44 11:26 17:28 RDW Lymph % (Auto) [place] % (Auto) Sodium BUN Glucose POC Glucose 182 H 175 H 161 H Hemoglobin A1c Albumin Triglycerides Cholesterol LDL Cholesterol Direct 12/25/18 12/26/18 21:33 08:17 RDW Lymph % (Auto) [place] % (Auto) Sodium BUN Glucose POC Glucose 140 H 208 H Hemoglobin A1c Albumin Triglycerides Cholesterol LDL Cholesterol Direct
[2018-12-26] MEDS: APRESOLINE IV PRN (12:16)
--- NOTE | 2018-12-26 12:51 | Progress Note ---
Assessment and Plan - Patient Problems (1) CVA (cerebral vascular accident) Current Visit: Yes Status: Acute Plan to address problem: CVA with right-sided hemiplegia. Patient has right-sided weakness on physical exam slurred speech is definitely improved. Need to be more aggressive with blood pressure control at this point. Patient on aspirin and Plavix statin. Need to continue rehabilitation. Patient highly motivated to sign out AMA however she fell in an attempt to go to the bathroom. Patient has right-sided weakness and paraparesis and is not safe to be discharged. Will benefit from therapy. Need to improve blood pressure (2) Weakness Current Visit: Yes Status: Acute Plan to address problem: Secondary to CVA. (3) Diabetes mellitus type 2 in obese Current Visit: No Status: Acute Plan to address problem: Fair control with current insulin dose is Lantus with sliding scale insulin coverage. (4) Hypertensive emergency Current Visit: No Status: Acute Plan to address problem: Patient's blood pressure has increased since hospital stay currently 205/117 will start patient on long-acting Procardia. It also increase hydralazine and add labetalol IV at this time. Patient had just received IV hydralazine with no effect. Increase by mouth hydralazine as well. (5) Hyperlipidemia Current Visit: No Status: Chronic Plan to address problem: We'll continue statin atorvastatin. (6) Congestive heart failure Current Visit: Yes Status: Acute Plan to address problem: We will compensated at this time. History Interval history: Patient is able to talk communicate. Looks fairly ill. It did not seem patient prior to CVA however progress has been made. See neurology note. She hospital course was complicated by malignant hypertension. Blood pressure 205/117 today. When attempting to discuss patient's care at the [facility]. Patient states she wants to sign out and was to leave. Patient states she will sign out AMA. Eyes. The last 20 minutes explaining to her how important it was for her to stay in her condition is not well. Hospitalist Physical - Constitutional Vitals: Temp Pulse Resp BP Pulse Ox 99.0 F 64 20 192/111 97 12/26/18 04:46 12/26/18 12:16 12/26/18 04:46 12/26/18 12:16 12/26/18 04:46 General appearance: Present: mild distress - EENT ENT: other (she has extensive hematoma over the left face cheek around zygomatic process) - Respiratory Respiratory: bilateral: CTA - Cardiovascular Rhythm: other - Extremities Extremities: no ischemia, pulses intact Peripheral Pulses: within normal limits - Abdominal General gastrointestinal: soft, non-tender, tender, no distended, no rigid, no normal bowel sounds, no hypoactive bowel sounds - Integumentary Integumentary: Present: clear, warm, dry - Psychiatric Psychiatric: appropriate mood/affect, intact judgment & insight - Neurologic Neurologic: CNII-XII intact, focal deficits, other (states she needs to go check on her house) Results - Labs CBC & Chem 7: 12/22/18 09:30 12/23/18 07:22 Labs: Laboratory Last Values WBC 9.6 K/mm3 (4.5-11.0) 12/22/18 09:30 RBC 4.41 M/mm3 (3.65-5.03) 12/22/18 09:30 Hgb 13.4 gm/dl (10.1-14.3) 12/22/18 09:30 Hct 40.2 % (30.3-42.9) 12/22/18 09:30 MCV 91 fl (79-97) 12/22/18 09:30 MCH 30 pg (28-32) 12/22/18 09:30 MCHC 34 % (30-34) 12/22/18 09:30 RDW 15.2 % (13.2-15.2) 12/22/18 09:30 Plt Count 308 K/mm3 (140-440) 12/22/18 09:30 Lymph % (Auto) 38.5 % (13.4-35.0) H 12/22/18 09:30 [place] % (Auto) 7.9 % (0.0-7.3) H 12/22/18 09:30 Eos % (Auto) 3.1 % (0.0-4.3) 12/22/18 09:30 Baso % (Auto) 1.0 % (0.0-1.8) 12/22/18 09:30 Lymph # 3.7 K/mm3 (1.2-5.4) 12/22/18 09:30 [place] # 0.8 K/mm3 (0.0-0.8) 12/22/18 09:30 Eos # 0.3 K/mm3 (0.0-0.4) 12/22/18 09:30 Baso # 0.1 K/mm3 (0.0-0.1) 12/22/18 09:30 Seg Neutrophils % 49.5 % (40.0-70.0) 12/22/18 09:30 Seg Neutrophils # 4.8 K/mm3 (1.8-7.7) 12/22/18 09:30 PT 12.4 Sec. (12.2-14.9) 12/21/18 11:39 INR 0.87 (0.87-1.13) 12/21/18 11:39 APTT 26.2 Sec. (24.2-36.6) 12/21/18 11:39 Thrombin Time 15.8 Sec. (15.1-19.6) 12/21/18 11:39 Sodium 135 mmol/L (137-145) L 12/23/18 07:22 Potassium 4.1 mmol/L (3.6-5.0) 12/23/18 07:22 Chloride 99.8 mmol/L (98-107) 12/23/18 07:22 Carbon Dioxide 27 mmol/L (22-30) 12/23/18 07:22 Anion Gap 12 mmol/L 12/23/18 07:22 BUN 21 mg/dL (7-17) H 12/23/18 07:22 Creatinine 1.2 mg/dL (0.7-1.2) D 12/23/18 07:22 Estimated GFR 58 ml/min 12/23/18 07:22 BUN/Creatinine Ratio 18 % 12/23/18 07:22 Glucose 183 mg/dL (65-100) H 12/23/18 07:22 POC Glucose 160 (70-105) H 12/26/18 12:04 Hemoglobin A1c 10.5 % (4-6) H 12/22/18 09:30 Calcium 9.0 mg/dL (8.4-10.2) 12/23/18 07:22 Total Bilirubin 0.30 mg/dL (0.1-1.2) 12/22/18 09:30 AST 19 units/L (5-40) 12/22/18 09:30 ALT 16 units/L (7-56) 12/22/18 09:30 Alkaline Phosphatase 116 units/L (35-129) 12/22/18 09:30 Troponin T < 0.010 ng/mL (0.00-0.029) 12/21/18 11:39 Total Protein 7.0 g/dL (6.3-8.2) 12/22/18 09:30 Albumin 3.5 g/dL (3.9-5) L 12/22/18 09:30 Albumin/Globulin Ratio 1.0 % 12/22/18 09:30 Triglycerides 160 mg/dL (2-149) H 12/23/18 07:22 Cholesterol 278 mg/dL (50-199) H 12/23/18 07:22 LDL Cholesterol Direct 225 mg/dL (50-130) H 12/23/18 07:22 HDL Cholesterol 43 mg/dL (40-59) 12/23/18 07:22 Cholesterol/HDL Ratio 6.46 % 12/23/18 07:22 Active Medications - Current Medications Current Medications: Generic Name Dose Route Start Last Admin Trade Name Freq PRN Reason Stop Dose Admin Acetaminophen 650 mg 12/22/18 00:34 Tylenol PO Q4H PRN Pain MILD(1-3)/Fever >100.5/ROME Aspirin 325 mg 12/23/18 14:00 12/26/18 09:21 Aspirin PO 325 mg QDAY MOISES Administration Atorvastatin Calcium 40 mg 12/22/18 22:00 12/25/18 22:32 Lipitor PO 40 mg QHS MOISES Administration Clopidogrel Bisulfate 75 mg 12/22/18 10:00 12/26/18 09:21 Plavix PO 75 mg DAILY MOISES Administration Famotidine 20 mg 12/22/18 10:00 12/26/18 09:21 Pepcid PO 20 mg BID MOISES Administration Fluoxetine HCl 40 mg 12/22/18 10:00 12/26/18 09:21 Prozac PO 40 mg BID MOISES Administration Hydralazine HCl 50 mg 12/24/18 10:02 12/26/18 06:22 Apresoline PO 50 mg Q8HR MOISES Administration Hydralazine HCl 10 mg 12/25/18 18:31 12/26/18 12:16 Apresoline IV 10 mg Q4HR PRN Administration BP S 160 AND ABOVE Insulin Glargine 35 units 12/22/18 10:00 12/26/18 09:13 Lantus SUB-Q 35 units QAM MOISES Administration Insulin Human Lispro 10 unit 12/22/18 07:30 12/26/18 12:37 Humalog SUB-Q 10 unit AC MOISES Administration Nicotine 14 mg 12/22/18 16:00 12/26/18 09:21 Habitrol TD 14 mg QDAY MOISES Administration Nifedipine 60 mg 12/26/18 10:00 12/26/18 09:22 Procardia Xl PO Not Given QDAY MOISES Ondansetron HCl 4 mg 12/22/18 00:34 Zofran IV Q8H PRN Nausea And Vomiting Oxycodone/Acetaminophen 1 tab 12/24/18 10:01 12/26/18 12:37 Percocet 5/325 PO 1 tab Q4H PRN Administration Pain, Moderate (4-6) Sodium Chloride 10 ml 12/22/18 01:00 12/26/18 09:23 Sodium Chloride Flush Syringe 10 Ml IV 10 ml BID MOISES Administration Sodium Chloride 10 ml 12/22/18 00:34 Sodium Chloride Flush Syringe 10 Ml IV PRN PRN LINE FLUSH
[2018-12-26] MEDS: NORMODYNE PO SCH ×2 (14:32→21:34)
[2018-12-26] MEDS: BENADRYL PO PRN ×2 (14:52→21:31)
[2018-12-27] MEDS: BENADRYL PO PRN ×2 (05:58→21:00)
[2018-12-27] MEDS: PERCOCET 5/325 PO PRN ×2 (05:58→21:00)
[2018-12-27] MEDS: LANTUS SUB-Q SCH (09:47)
[2018-12-27] MEDS: PROCARDIA XL PO SCH (10:20)
[2018-12-27] MEDS: HABITROL TD SCH (10:20)
[2018-12-27] MEDS: PLAVIX PO SCH (10:20)
[2018-12-27] MEDS: PEPCID PO SCH ×2 (10:20→20:59)
[2018-12-27] MEDS: PROzac PO SCH ×2 (10:20→21:00)
[2018-12-27] MEDS: HumaLOG SUB-Q SCH ×3 (10:20→17:21)
[2018-12-27] MEDS: ASPIRIN PO SCH (10:20)
[2018-12-27] MEDS: SODIUM CHLORIDE FLUSH SYRINGE 10 ML IV SCH ×2 (10:21→21:07)
[2018-12-27] MEDS: APRESOLINE PO SCH ×3 (10:21→21:00)
[2018-12-27] MEDS: NORMODYNE PO SCH ×2 (10:21→20:59)
--- NOTE | 2018-12-27 12:14 | Discharge Summary ---
Providers - Providers Date of Admission: 12/21/18 14:54 Date of discharge: 12/29/18 Attending physician: WILMA HAY 12/22/18 Consult to Physician [CONS] Routine Comment: Consulting Provider: REMI YOUNG Physician Instructions: Reason For Exam: cva 12/22/18 00:38 Occupational Therapy Evaluate and Treat [CONS] Routine Comment: Reason For Exam: Neuro deficits Physical Therapy Evaluation and Treat [CONS] Routine Comment: Reason For Exam: Neuro deficits Hospitalization Condition: Stable Pertinent studies: Head CTs HEad CTA MRI brain: Multifocal punctate areas of restricted diffusion suggest ischemia and/or ischemic infarcts in the right parietal lobe white matter and cortex. There is corresponding abnormal T1, FLAIR, and T2 signal suggesting the lesion is at least 16 hours old. MRA head Carotid doppler 2d echo Face CT Hospital course: Patient states that around 8 AM in the morning she noticed that her left arm and left leg were weak as well as having slurred speech. Patient has a recent history of a CVA in August patient also endorses having a GI bleed within the last 90 days and hit her head 2 days ago. Stroke protocol was initiated on followed. MRI showed right-sided CVA, PT recommended acute rehab. Patient was then discharged to acute rehab in stable condition. Discharge diagnosis: CVA with left sided weakness - CT head was done and showed chronic infarcts on the right ALPHONSO territory, volume loss, no acute events seen - MRI showed right-sided CVA, carotid Doppler normal, Echo showed no vegetation - Neurology consult appreciated - PT/OT recommended acute rehab s/p fall, on the left face on 12/25/18 - CT of the face was ordered and result showed No evidence for acute fracture. Patient had soft tissue swelling with hematoma overlying the left cheek and left orbit. provided supportive care, symptom improved Hypertension - Permissive hypertension allowed following admission - then started on meds and adjusted as needed Diabetes mellitus type 2 - Continued insulin regimen with accucheck and ADA diet Neuropathy - likely from DM - D/Gopi pregabalin because it causes her drowsy Disposition - acute rehab placement. Hospitalist Physical Not in cardiopulmonary distress. The patient appeared well nourished and normally developed. Vital signs as documented. Head exam is unremarkable. Bruise and swelling on the face No scleral icterus . Neck is without jugular venous distension, thyromegaly, or carotid bruits. Lungs are clear to auscultation. Cardiac exam reveals regular rate and Rhythm. Abdominal exam reveals normal bowel sounds. Extremities are nonedematous and both femoral and pedal pulses are normal. RESTORATIVE AIDE: Alert and oriented 3. Left-sided livier-paresis. Disposition: [id number] Time spent for discharge: 34 minutes Core Measure Documentation - Palliative Care Palliative Care/ Comfort Measures: Not Applicable - Core Measures Any of the following diagnoses?: stroke - Stroke Discharge Requirements Statin for LDL = or >70 mg/dl on DC: Yes Anticoag for atrial fib/atrial flutter: Not Applicable Antithrombotic for ischemic stroke: Yes Exam - Constitutional Vitals: Temp Pulse Resp BP Pulse Ox 99.7 F H 78 20 154/79 98 12/26/18 21:41 12/27/18 10:21 12/26/18 21:41 12/27/18 10:21 12/26/18 21:41 Plan Activity: fall precautions Weight Bearing Status: Non-Weight Bearing Diet: low fat, low salt Follow up with: [facility] [Other] - 3-5 Days
[2018-12-27] MEDS ORDERED: HumaLOG SUB-Q ONE (23:25)
[2018-12-28] MEDS: APRESOLINE PO SCH ×3 (08:42→21:49)
[2018-12-28] MEDS: HumaLOG SUB-Q SCH ×3 (08:42→18:15)
[2018-12-28] MEDS: LANTUS SUB-Q SCH (09:34)
[2018-12-28] MEDS: PROzac PO SCH ×2 (09:34→21:48)
[2018-12-28] MEDS: HABITROL TD SCH (09:34)
[2018-12-28] MEDS: PEPCID PO SCH ×2 (09:34→21:49)
[2018-12-28] MEDS: PROCARDIA XL PO SCH (09:34)
[2018-12-28] MEDS: SODIUM CHLORIDE FLUSH SYRINGE 10 ML IV SCH ×2 (09:35→21:48)
[2018-12-28] MEDS: NORMODYNE PO SCH ×2 (09:35→21:52)
[2018-12-28] MEDS: PLAVIX PO SCH (09:35)
[2018-12-28] MEDS: ASPIRIN PO SCH (09:35)
--- NOTE | 2018-12-28 12:39 | Progress Note ---
Assessment and Plan CVA with left sided weakness - CT head was done and showed chronic infarcts on the right ALPHONSO territory, volume loss, no acute events seen - MRI showed right-sided CVA, carotid Doppler normal, Echo showed no vegetation - Neurology consult appreciated - PT/OT s/p fall, on the left face - CT of the face was ordered and will follow the result Hypertension - Permissive hypertension - Will restart her medications as needed Diabetes mellitus - Continue insulin regimen, accucheck and ADA diet is insulin as needed Neuropathy - D/C pregabalin because it causes her drowsy Disposition - pending acute rehab placement. Brief History: Patient states that around 8 AM this morning she noticed that her left arm and left leg were weak as well as having slurred speech. Patient has a recent history of a CVA in August patient also endorses having a GI bleed within the last 90 days and hit her head 2 days ago. Stroke protocol was initiated on admission. Hospitalist Physical Not in cardiopulmonary distress. The patient appeared well nourished and normally developed. Vital signs as documented. Head exam is unremarkable. Bruise and swelling on the face No scleral icterus . Neck is without jugular venous distension, thyromegaly, or carotid bruits. Lungs are clear to auscultation. Cardiac exam reveals regular rate and Rhythm. Abdominal exam reveals normal bowel sounds. Extremities are nonedematous and both femoral and pedal pulses are normal. RN CHEMICAL DEPENDENCY: Alert and oriented 3. Left-sided livier-paresis. Subjective Date of service: 12/27/18 Interval history: patient seen and examined tolerating diet, no acute issue pending placement Objective - Constitutional Vitals: Vital Signs - 12hr 12/28/18 12:04 Temperature 98.6 F Pulse Rate 84 Respiratory 20 Rate Blood Pressure 140/80 O2 Sat by Pulse 96 Oximetry - Labs CBC & Chem 7: 12/22/18 09:30 12/23/18 07:22 Labs: Abnormal lab results 12/27/18 12/27/18 12/27/18 Range/Units 11:56 16:48 22:13 POC Glucose 360 H 154 H 224 H (70-105) 12/28/18 12/28/18 Range/Units 08:16 12:08 POC Glucose 242 H 303 H (70-105)
[2018-12-28] MEDS: PERCOCET 5/325 PO PRN ×2 (13:07→21:49)
[2018-12-28] MEDS: BENADRYL PO PRN ×2 (13:13→21:49)
[2018-12-28] MEDS ORDERED: LANTUS SUB-Q SCH (15:39)
--- NOTE | 2018-12-28 16:23 | Progress Note ---
Subjective Date of service: 12/28/18 Interval history: EEG ordered o check problems with LO arousal could be stroke related Objective - Vital Sign Vital Signs - 12hr 12/28/18 12:04 Temperature 98.6 F Pulse Rate 84 Respiratory 20 Rate Blood Pressure 140/80 O2 Sat by Pulse 96 Oximetry - Laboratory Findings CBC and BMP: 12/22/18 09:30 12/23/18 07:22 Abnormal Lab Findings: Abnormal Labs 12/21/18 12/21/18 12/21/18 11:39 11:39 17:12 RDW 15.7 H Lymph % (Auto) [place] % (Auto) Sodium BUN 18 H Glucose 242 H POC Glucose 309 H Hemoglobin A1c Albumin Triglycerides Cholesterol LDL Cholesterol Direct 12/21/18 12/22/18 12/22/18 21:44 08:09 09:30 RDW Lymph % (Auto) 38.5 H [place] % (Auto) 7.9 H Sodium BUN Glucose POC Glucose 233 H 186 H Hemoglobin A1c Albumin Triglycerides Cholesterol LDL Cholesterol Direct 12/22/18 12/22/18 12/22/18 09:30 09:30 11:17 RDW Lymph % (Auto) [place] % (Auto) Sodium 136 L BUN Glucose 213 H POC Glucose 192 H Hemoglobin A1c 10.5 H Albumin 3.5 L Triglycerides Cholesterol LDL Cholesterol Direct 12/22/18 12/23/18 12/23/18 17:05 07:22 07:59 RDW Lymph % (Auto) [place] % (Auto) Sodium 135 L BUN 21 H Glucose 183 H POC Glucose 160 H 157 H Hemoglobin A1c Albumin Triglycerides 160 H Cholesterol 278 H LDL Cholesterol Direct 225 H 12/23/18 12/23/18 12/24/18 11:50 21:43 08:30 RDW Lymph % (Auto) [place] % (Auto) Sodium BUN Glucose POC Glucose 240 H 162 H 217 H Hemoglobin A1c Albumin Triglycerides Cholesterol LDL Cholesterol Direct 12/24/18 12/24/18 12/24/18 12:10 17:23 21:36 RDW Lymph % (Auto) [place] % (Auto) Sodium BUN Glucose POC Glucose 190 H 123 H 280 H Hemoglobin A1c Albumin Triglycerides Cholesterol LDL Cholesterol Direct 12/25/18 12/25/18 12/25/18 07:44 11:26 17:28 RDW Lymph % (Auto) [place] % (Auto) Sodium BUN Glucose POC Glucose 182 H 175 H 161 H Hemoglobin A1c Albumin Triglycerides Cholesterol LDL Cholesterol Direct 12/25/18 12/26/18 12/26/18 21:33 08:17 12:04 RDW Lymph % (Auto) [place] % (Auto) Sodium BUN Glucose POC Glucose 140 H 208 H 160 H Hemoglobin A1c Albumin Triglycerides Cholesterol LDL Cholesterol Direct 12/26/18 12/26/18 12/27/18 16:52 21:42 07:51 RDW Lymph % (Auto) [place] % (Auto) Sodium BUN Glucose POC Glucose 171 H 175 H 242 H Hemoglobin A1c Albumin Triglycerides Cholesterol LDL Cholesterol Direct 12/27/18 12/27/18 12/27/18 11:56 16:48 22:13 RDW Lymph % (Auto) [place] % (Auto) Sodium BUN Glucose POC Glucose 360 H 154 H 224 H Hemoglobin A1c Albumin Triglycerides Cholesterol LDL Cholesterol Direct 12/28/18 12/28/18 08:16 12:08 RDW Lymph % (Auto) [place] % (Auto) Sodium BUN Glucose POC Glucose 242 H 303 H Hemoglobin A1c Albumin Triglycerides Cholesterol LDL Cholesterol Direct
[2018-12-29] MEDS: PERCOCET 5/325 PO PRN ×2 (01:48→08:41)
[2018-12-29] MEDS: BENADRYL PO PRN (08:41)
[2018-12-29] MEDS: HumaLOG SUB-Q SCH ×2 (08:41→12:47)
[2018-12-29] MEDS: APRESOLINE PO SCH ×2 (08:41→13:59)
--- NOTE | 2018-12-29 09:11 | Progress Note ---
Assessment and Plan CVA with left sided weakness - CT head was done and showed chronic infarcts on the right [place]PH[place] territory, volume loss, no acute events seen - MRI showed right-sided CVA, carotid Doppler normal, Echo showed no vegetation - Neurology consult appreciated - PT/OT s/p fall, on the left face - CT of the face was ordered and result showed No evidence for acute fracture. Soft tissue swelling with hematoma overlying the left cheek and left orbit. continue to provide supportive care Hypertension - Permissive hypertension allowed following admission - Cont to monitor BP and adjust meds Diabetes mellitus - Continue insulin regimen, accucheck and ADA diet is insulin as needed Neuropathy - D/C pregabalin because it causes her drowsy Disposition - pending acute rehab placement. Brief History: Patient states that around 8 AM in the morning she noticed that her left arm and left leg were weak as well as having slurred speech. Patient has a recent history of a CVA in August patient also endorses having a GI bleed within the last 90 days and hit her head 2 days ago. Stroke protocol was initiated on admission. Hospitalist Physical Not in cardiopulmonary distress. The patient appeared well nourished and normally developed. Vital signs as documented. Head exam is unremarkable. Bruise and swelling on the face No scleral icterus . Neck is without jugular venous distension, thyromegaly, or carotid bruits. Lungs are clear to auscultation. Cardiac exam reveals regular rate and Rhythm. Abdominal exam reveals normal bowel sounds. Extremities are nonedematous and both femoral and pedal pulses are normal. LOSS PREVENTION GUARD: Alert and oriented 3. Left-sided livier-paresis. Subjective Date of service: 12/28/18 Interval history: patient seen and examined tolerating diet, no acute issue pending placement Objective - Constitutional Vitals: Vital Signs - 12hr 12/28/18 12/28/18 12/29/18 21:52 23:13 05:46 Temperature 97.9 F 98.1 F Pulse Rate 78 70 69 Respiratory 18 20 Rate Blood Pressure 143/89 123/78 155/79 O2 Sat by Pulse 95 97 Oximetry - Labs CBC & Chem 7: 12/22/18 09:30 12/23/18 07:22 Labs: Abnormal lab results 12/28/18 12/28/18 12/28/18 Range/Units 12:08 16:43 22:05 POC Glucose 303 H 171 H 127 H (70-105) 12/29/18 Range/Units 08:12 POC Glucose 165 H (70-105)
[2018-12-29] MEDS: ASPIRIN PO SCH (09:43)
[2018-12-29] MEDS: PROCARDIA XL PO SCH (09:43)
[2018-12-29] MEDS: PROzac PO SCH (09:43)
[2018-12-29] MEDS: NORMODYNE PO SCH (09:44)
[2018-12-29] MEDS: PLAVIX PO SCH (09:44)
[2018-12-29] MEDS: PEPCID PO SCH (09:44)
[2018-12-29] MEDS: HABITROL TD SCH (09:44)
[2018-12-29] MEDS: SODIUM CHLORIDE FLUSH SYRINGE 10 ML IV SCH (09:45)
[2018-12-29 12:46] VITALS: BP 112/74
== END 2018-12-29 14:44 | DRG 65 ==
LOC: ED 11:24 → 3A 14:54
PROVIDERS: ADMIT Internal Medicine; ATTEND Internal Medicine
DX: I63.9 Cerebral infarction, unspecified (principal); I69.354 Hemiplegia and hemiparesis following cerebral infarction affecting left non-dominant side; R29.810 Facial weakness; I50.9 Heart failure, unspecified; I25.10 Atherosclerotic heart disease of native coronary artery without angina pectoris; E78.5 Hyperlipidemia, unspecified; R29.705 NIHSS score 5; F17.210 Nicotine dependence, cigarettes, uncomplicated; K21.9 Gastro-esophageal reflux disease without esophagitis; J44.9 Chronic obstructive pulmonary disease, unspecified; F32.9 Major depressive disorder, single episode, unspecified; E11.42 Type 2 diabetes mellitus with diabetic polyneuropathy; I11.0 Hypertensive heart disease with heart failure; Z82.49 Family history of ischemic heart disease and other diseases of the circulatory system; Z90.49 Acquired absence of other specified parts of digestive tract; Z90.710 Acquired absence of both cervix and uterus; Z79.4 Long term (current) use of insulin; Z79.899 Other long term (current) drug therapy; Z71.6 Tobacco abuse counseling
CPT/HCPCS: 36415; 70450; 70486; 70544; 70551; 80048; 80053; 80061; 82962; 83036; 84484; 85025; 85610; 85670; 85730; 87116; 93005; 93010; 93306; 93880; 99406; G0378; A9270-GY; J0360; J1170; J1815; J2060; J7030

== ENCOUNTER 2018-12-29 13:56 | Inpatient (IN) | payer OTHER ==
[2018-12-29] MEDS ORDERED: D50W (25GM) Syringe IV PRN (14:16)
[2018-12-29] MEDS ORDERED: TYLENOL PO PRN (14:28)
[2018-12-29] MEDS ORDERED: ZOFRAN IV PRN (14:28)
[2018-12-29] MEDS: PERCOCET 5/325 PO PRN (18:24)
[2018-12-29] MEDS: BENADRYL PO PRN (18:24)
[2018-12-29] MEDS: APRESOLINE PO SCH (20:16)
[2018-12-29] MEDS: PEPCID PO SCH (21:41)
[2018-12-29] MEDS: PROzac PO SCH (21:41)
[2018-12-29] MEDS: LANTUS SUB-Q SCH (21:54)
[2018-12-29] MEDS: HumaLOG SUB-Q SCH ×2 (22:13→22:38)
[2018-12-29] MEDS: NORMODYNE PO SCH (22:37)
[2018-12-30] MEDS: PERCOCET 5/325 PO PRN ×2 (03:21→20:25)
[2018-12-30] MEDS: HumaLOG SUB-Q SCH ×4 (08:26→23:22)
[2018-12-30] MEDS: PLAVIX PO SCH ×2 (08:30→10:00)
[2018-12-30] MEDS: PROzac PO SCH ×3 (08:30→21:39)
[2018-12-30] MEDS: NORMODYNE PO SCH ×3 (08:31→21:39)
[2018-12-30] MEDS: HALFPRIN EC PO SCH ×2 (08:31→10:00)
[2018-12-30] MEDS: PEPCID PO SCH ×3 (08:31→21:39)
[2018-12-30] MEDS: APRESOLINE PO SCH ×3 (08:32→20:50)
[2018-12-30] MEDS: PROCARDIA XL PO SCH ×2 (08:32→10:00)
[2018-12-30] MEDS: HABITROL TD SCH ×2 (08:35→10:00)
[2018-12-30 09:25] LABS: Basophils # (Auto) 0.1 K/mm3 (0.0-0.1); Basophils % (Auto) 0.9 % (0.0-1.8); Eosinophils # (Auto) 0.2 K/mm3 (0.0-0.4); Eosinophils % (Auto) 2.4 % (0.0-4.3); Hematocrit 39.7 % (30.3-42.9); Hemoglobin 13.2 gm/dl (10.1-14.3); Lymphocytes # (Auto) 2.5 K/mm3 (1.2-5.4); Lymphocytes % (Auto) 30.4 % (13.4-35.0); Mean Corpuscular HGB Conc 33 % (30-34); Mean Corpuscular Volume 92 fl (79-97); Monocytes # (Auto) 0.6 K/mm3 (0.0-0.8); Monocytes % (Auto) 7.4 % (0.0-7.3); Platelet Count 272 K/mm3 (140-440); Red Blood Count 4.31 M/mm3 (3.65-5.03); Red Cell Distribution Width 15.5 % (13.2-15.2)
[2018-12-30 09:49] LABS: Albumin 3.4 g/dL (3.9-5); BUN/Creatinine Ratio 33; Blood Urea Nitrogen 26 mg/dL (7-17); Calcium 9.1 mg/dL (8.4-10.2); Hemolysis Index 415
[2018-12-30 09:55] LABS: Alanine Aminotransferase 23 units/L (7-56)
--- NOTE | 2018-12-30 10:04 | History and Physical Report ---
History of Present Illness Date: 12/30/18 Date of admission: 12/29/18 14:52 Chief Complaint: CVA History of present illness: 48-year-old left-hand dominant female with a history of 2 prior CVAs who developed left-sided weakness the morning of presentation to the ED. Previous to the new weakness she was able to walk and had normalized strength on the left. States that she did use a cane at times but was independent with all ADLs. She admits she did sit in order to cook due to balance issues. On presentation to the ED she had left-sided weakness which later improved accompanied with slurred speech and left facial droop. She reports she had a fall 2 days previously where she hit her head. She had a fall in the hospital on 12/25 and she has a left-sided facial hematoma along with subconjunctival hemorrhage and complains of blurred vision on the left. Apparently she is also had a couple more falls since being admitted. Patient admits to continuing smo pj at least a pack a day along with poorly controlled diabetes and hypertension. Discussed with patient at length secondary stroke prevention and the need for her to stop smoking along with control her blood pressure and blood sugar in order to reduce her risk of recurrent strokes. She also reportedly had a GI bleed within the last 90 days. Stroke protocol was started, MRI brain showed multifocal punctate areas in the right parietal lobe. Carotid duplex showed minimal changes that were not significant. Echocardiogram showed moderate concentric left ventricular hypertrophy with an estimated EF of 50-55% and global left ventricular systolic function at the lower limits of normal and no vegetations. Repeat head CT showed an evolving subacute right MCA ischemic infarct with no hemorrhage identified. CT face showed no acute fracture, hematoma overlying the left cheek and orbit. After the patient was medically stabilized they were transferred for further rehabilitation. All available medical records have been reviewed. Plan of care was discussed with patient. Past History Past Medical History: COPD, diabetes, heart failure, hypertension, stroke, other (Depression, peripheral neuropathy, sleep apnea, fibromyalgia) Past Surgical History: cholecystectomy, hysterectomy, Other (breast) Social history: lives with family ([place]), smoking, full code, other (2 story, Previously independent with AD). denies: alcohol abuse, prescription drug abuse Family history: cancer, diabetes, hypertension, stroke Medications and Allergies Allergies Allergy/AdvReac Type Severity Reaction Status Date / Time ketorolac [From Toradol] Allergy Hives Verified 12/21/18 12:12 morphine Allergy Hives Verified 12/21/18 12:12 Home Medications Medication Instructions Recorded Confirmed Last Taken Type FLUoxetine HCL [PROzac] 40 mg PO BID 08/08/18 12/21/18 Unknown History AtorvaSTATin [Lipitor] 40 mg PO QHS #30 tablet 08/10/18 12/21/18 Unknown Rx Clopidogrel [Plavix] 75 mg PO DAILY #30 tablet 08/10/18 12/21/18 Unknown Rx Insulin Aspart [Novolog] 35 unit SQ AC 12/21/18 12/21/18 Unknown History Aspirin EC [Aspirin Enteric Coated 81 mg PO QDAY #30 tablet. 12/27/18 Unknown Rx TAB] Famotidine [Pepcid] 20 mg PO BID tablet 12/27/18 Unknown Rx Insulin Glargine [Lantus VIAL] 35 units SUB-Q QAM units 12/27/18 Unknown Rx Labetalol [Normodyne TAB] 100 mg PO BID tablet 12/27/18 Unknown Rx Lispro Insulin [Humalog] 10 unit SUB-Q AC units 12/27/18 Unknown Rx NIFEdipine XL [Procardia Xl] 60 mg PO QDAY tablet 12/27/18 Unknown Rx hydrALAZINE [Apresoline TAB] 100 mg PO TID tab 12/27/18 Unknown Rx Active Meds: Active Medications Acetaminophen (Tylenol) 650 mg PO Q4H PRN PRN Reason: Pain, Mild (1-3) Aspirin (Halfprin Ec) 81 mg PO QDAY [facility] Last Admin: 12/30/18 08:31 Dose: 81 mg Documented by: Atorvastatin Calcium (Lipitor) 40 mg PO QHS [facility] Last Admin: 12/29/18 21:41 Dose: 40 mg Documented by: Clopidogrel Bisulfate (Plavix) 75 mg PO QDAY [facility] Last Admin: 12/30/18 08:30 Dose: 75 mg Documented by: Dextrose (D50w (25gm) Syringe) 50 ml IV PRN PRN PRN Reason: Hypoglycemia Diphenhydramine HCl (Benadryl) 25 mg PO Q8H PRN PRN Reason: Itching Last Admin: 12/29/18 18:24 Dose: 25 mg Documented by: Famotidine (Pepcid) 20 mg PO BID [facility] Last Admin: 12/30/18 08:31 Dose: 20 mg Documented by: Fluoxetine HCl (Prozac) 40 mg PO BID [facility] Last Admin: 12/30/18 08:30 Dose: 40 mg Documented by: Hydralazine HCl (Apresoline) 100 mg PO TID [facility] Last Admin: 12/30/18 08:32 Dose: 100 mg Documented by: Insulin Glargine (Lantus) 40 units SUB-Q QHS [facility] Last Admin: 12/29/18 21:54 Dose: 40 units Documented by: Insulin Human Lispro (Humalog) 0 unit SUB-Q ACHS [facility]; Protocol Last Admin: 12/29/18 22:38 Dose: 2 unit Documented by: Labetalol HCl (Normodyne) 100 mg PO BID [facility] Last Admin: 12/30/18 08:31 Dose: 100 mg Documented by: Nicotine (Habitrol) 14 mg TD QDAY [facility] Last Admin: 12/30/18 08:35 Dose: 14 mg Documented by: Nifedipine (Procardia Xl) 60 mg PO QDAY [facility] Last Admin: 12/30/18 08:32 Dose: 60 mg Documented by: Ondansetron HCl (Zofran) 4 mg IV Q4H PRN PRN Reason: Nausea And Vomiting Oxycodone/Acetaminophen (Percocet 5/325) 1 tab PO Q4H PRN PRN Reason: Pain, Moderate (4-6) Last Admin: 12/30/18 03:21 Dose: 1 tab Documented by: Review of Systems All systems: negative (ROS negative for 12 systems except as noted below with pertinent positives and negatives.) Constitutional: fatigue Eyes: left: blurred vision (hematoma) Cardiovascular: no chest pain, no palpitations, no rapid/irregular heart beat, no lightheadedness, no shortness of breath Respiratory: wheezing, sleep apnea Gastrointestinal: no nausea, no vomiting, no diarrhea, no constipation Genitourinary Female: no dysuria Musculoskeletal: frequent falls Integumentary: unusual bruising Neurological: weakness, numbness, change in mentation, balance difficulties, gait dysfunction Psychiatric: depression Endocrine: high blood sugars Exam - Exam Narrative exam: MUSCULOSKELETAL SPECIALTY EXAM CONSTITUTIONAL: Well developed, well nourished, appropriately groomed, obese. LEFT hand dominant. LYMPHATIC: No appreciable abnormalities palpable in neck RESPIRATORY: Bilateral wheezes, no increased work of breathing CARDIOVASCULAR: Regular Rate/ Rhythm. Bilateral lower extremity edema worse on the right, mild tenderness with calf squeeze. Pulses palpable in all extremities. All extremities warm. GI: + bowel sounds, soft, NTTP, nondistended. INTEGUMENTARY: Normal, no lesion, rash, masses or bruising noted in extremities. Left facial hematoma and subconjunctival hemorrhage. MUSCULOSKELETAL: BUE and BLE normal without defect, crepitus, subluxation, effusion, arthritic changes or TTP. SA EF WE EE FF FA HF KE ADF EHL APF R 5/5 5/5 5/5 5/5 5/5 5/5 5/5 5/5 5/5 5/5 5/5 L 4/5 4/5 4/5 4/5 4/5 4/5 4/5 4/5 4/5 4/5 4/5 ROM slightly decreased on left, normal on right Tone normal NEURO: CN II : Visual heck full to confrontation, slightly decreased on the left due to ocular injury CN II, III : PERRL CN III, IV, : EOMI CN V : Facial sensation intact CN VII : Left facial droop. Normal eye closure CN VIII : Hearing intact to finger rustle CN IX, X : Palate/uvula elevate midline, phonation normal CN XI : Intact shoulder shrug and head rotation CN XII : Tongue protrudes midline Sensation intact in all extremities without extinction. Reflexes 2+ bilaterally at biceps, brachioradialis and patella. No clonus at ankles. Coordination intact in RUE, decreased on left. No tremor noted in 4 extremities. Naming and repetition intact. Follows 2 step commands. Aphasia not appreciated Dysarthria not appreciated Dysphagia not appreciated Neglect not appreciated POSTURE and GAIT: Sitting posture good. Balance appears reasonable. Gait deferred until seen with therapy. PSYCH: Alert, orientated x3, affect appears euthymic. Insight appears intact with some decreased awareness of deficits. - Constitutional Vitals: Vital Signs - 12hr 12/29/18 12/30/18 12/30/18 23:45 04:41 08:00 Temperature 37.1 C 36.8 C 36.9 C Pulse Rate 86 65 77 Respiratory 19 19 18 Rate Blood Pressure 144/86 140/80 Blood Pressure 129/88 [Right] O2 Sat by Pulse 96 92 Oximetry 12/30/18 08:31 Temperature Pulse Rate 77 Respiratory Rate Blood Pressure 129/88 Blood Pressure [Right] O2 Sat by Pulse Oximetry - Labs CBC & Chem 7: 12/30/18 08:53 12/30/18 08:53 Labs: Laboratory Results - last 72 hr 12/30/18 12/30/18 12/30/18 07:48 08:53 08:53 WBC 8.1 RBC 4.31 Hgb 13.2 Hct 39.7 MCV 92 MCH 31 MCHC 33 RDW 15.5 H Plt Count 272 Lymph % (Auto) 30.4 [place] % (Auto) 7.4 H Eos % (Auto) 2.4 Baso % (Auto) 0.9 Lymph # 2.5 [place] # 0.6 Eos # 0.2 Baso # 0.1 Seg Neutrophils % 58.9 Seg Neutrophils # 4.8 Sodium 138 Potassium 6.6 H* Chloride 101.8 Carbon Dioxide 23 Anion Gap 20 BUN 26 H Creatinine 0.8 Estimated GFR > 60 BUN/Creatinine Ratio 33 Glucose 253 H POC Glucose 166 H Calcium 9.1 Total Bilirubin 0.30 AST 38 ALT 23 Alkaline Phosphatase 45 Total Protein 7.2 Albumin 3.4 L Albumin/Globulin Ratio 0.9 Assessment and Plan Assessment and plan: Patient was assessed and evaluated for Acute Inpatient Rehab Unit. Due to the patients above-mentioned medical complexity, along with decreased functional mobility and self care, this patient continues to require and be appropriate for a comprehensive, multidisciplinary [id number] rehabilitation program. These needs cannot be met in an outpatient or other less intensive setting. The patient would continue to benefit from skilled therapy intervention for at least 3 hours per day, five days a week, with techniques specific to the needs of the patient to improve function, activities of daily living, and reintegration into the community. The patient continues to require: -- OT to improve ROM, self-care, and learn use of adaptive equipment -- PT to improve strength and balance, functional transfers, and ambulation with energy conservation techniques to improve functional mobility -- MORTGAGE SERVICING SPECIALIST to address cognitive deficits and swallowing ability -- 24 hour RN to ensure and prevent skin breakdown, promote progressive independence while ensuring safety, ensure education regarding medications, and incorporation of the rehabilitation at the bedside -- 24 hour Automotive Parts Person to coordinate this interdisciplinary program, and to manage/prevent complications as a result of the patients medical comorbidities. -Plan of care by day 4 -Weekly team conferences With such a program, there is a reasonable certainty that the goals individualized for this patient can be achieved within the specified length of stay. 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 Monitor for poststroke depression, shoulder-hand syndrome and neurologic decline. Prognosis discussed with patient as well as the importance of adhering to poststroke precautions. Z73.6 ADL dysfunction: OT will work on improving ability to perform ADLs (includ ing assistive devices) to increase independence and decrease caregiver burden and improve functional transfers and mobility training. R26.2 Difficulty walking: PT will work on gait training and proper use of assistive devices and advance as appropriate to use of stairs and outside ambulation on uneven surfaces. R26.81 Unsteadiness on feet: PT will work on improving static and dynamic sitting and standing balance as well as proper use of assistive devices to decrease risk of falls. R26.89 Abnormality of gait: PT will work to improve safety and efficiency of gait through neuromotor training and gait training along with instruction on proper use of assistive devices. M62.81 Muscle weakness: PT & OT will work on strengthening exercises to improve functional strength including mixture of closed and open kinetic chain exercises. R53.81 Debility: PT & OT will work on improving overall functional status to improve participation with ADLs, mobility and social involvement. R53.83 Fatigue: PT & OT will work on improving endurance through aerobic exercises and therapeutic activity while monitoring patients tolerance for activity and vital signs as needed. F33.9 Depression: Continue medications monitor for worsening symptoms. I50.9 CHF: Continue diuresis, daily weights, monitor for worsening symptoms and volume overload her E11.69 Diabetes: Continue medications, cardiac control diet, diet education I10 Hypertension: Continue medications monitor for normotension and adjust medications as needed. J44.9 COPD: start duonebs and monitor. Order right lower extremity Doppler ultrasound to rule out DVT. DVT ppx: Was previously just on mechanical, will start Lovenox daily. Monitor for bleeding or drops in hemoglobin. Pain: Continue physical modalities in therapy and pain medications as needed to achieve functional pain control. Continue pain medications at a low-dose, patient states she takes Percocet 10 mg at home for fibromyalgia. Warm compress for eye. Sleep: Monitor and address as needed. Bowel: Monitor and address as needed. Appetite: Monitor and address as needed. Discharge planning: Pending therapy progress and care plan meeting. Will continue discussion with therapy team, SW, patient and family. Restrictions/ Precautions: Falls WB status: FWB Functional Hx: ADLs: Independent Cognition: Independent Mobility: Cane Barriers to Discharge: Decreased mobility and ability to perform self care, balance deficits, weakness, decreased awareness of deficits, decreased medical compliance Estimated Length of Stay: 14-21 days Discharge Destination: Home with family POST ADMISSION PHYSICIAN EVALUATION I have examined the patient and find that functional status, medical condition and appropriateness for IRF admission are essentially unchanged from those described in the preadmission screening. Will monitor for worsening neurologic status associated with CVA, dysphagia, shoulderhand syndrome, DVT/PE, bowel and bladder complications and complications due to CHF, diabetes, hypertension and electrolyte abnormalities. Will attempt to avoid occurrence of these issues or treat them if they present themselves.
[2018-12-30 12:27] LABS: Alanine Aminotransferase 16 units/L (7-56); Albumin 3.6 g/dL (3.9-5); BUN/Creatinine Ratio 36; Blood Urea Nitrogen 29 mg/dL (7-17); Hemolysis Index 12
[2018-12-30] MEDS: BENADRYL PO PRN (20:25)
[2018-12-30] MEDS: DUONEB *Not for PRN Use IH SCH ×3 (21:16→21:43)
[2018-12-30] MEDS: LOVENOX SUB-Q SCH (21:40)
--- NOTE | 2018-12-30 22:13 | Vascular Lab Report ---
PROCEDURE: US RIGHT LOWER EXTREMITY VENOUS DUPLEX DOPPLER TECHNIQUE: Duplex Doppler ultrasound of the RIGHT common and superficial femoral, popliteal, posteri or tibial, and proximal deep femoral and greater saphenous veins was attempted. Gardner scale imaging wi th and without compression, spectral waveform analysis with and without augmentation, and color flow Doppler were employed. CPT 16797-[place] HISTORY: Pain and swelling COMPARISONS: None . FINDINGS: Deep Venous Thrombus: None . Superficial Venous Thrombus: None . Venous valvular incompetence: None . Soft tissue abnormality: None . Other: None . IMPRESSION: No evidence of deep venous thrombosis . This document is electronically signed by Brandt Adams MD., Dec 30 2018 10:11:20 PM ET
[2018-12-30] MEDS: LANTUS SUB-Q SCH (22:25)
[2018-12-31] MEDS: PERCOCET 5/325 PO PRN ×2 (02:02→22:51)
[2018-12-31] MEDS: HumaLOG SUB-Q SCH ×4 (08:16→22:47)
[2018-12-31] MEDS: PROzac PO SCH ×2 (09:56→22:37)
[2018-12-31] MEDS: PLAVIX PO SCH (09:57)
[2018-12-31] MEDS: PROCARDIA XL PO SCH (09:57)
[2018-12-31] MEDS: HABITROL TD SCH (09:57)
[2018-12-31] MEDS: HALFPRIN EC PO SCH (09:58)
[2018-12-31] MEDS: APRESOLINE PO SCH ×3 (09:58→20:00)
[2018-12-31] MEDS: NORMODYNE PO SCH ×2 (09:58→22:40)
[2018-12-31] MEDS: PEPCID PO SCH ×2 (09:58→22:38)
[2018-12-31] MEDS: DUONEB *Not for PRN Use IH SCH ×2 (12:29→21:57)
--- NOTE | 2018-12-31 22:06 | IRU Plan of Care ---
Interdisciplinary Plan of Care - IP IRU INTERDISCIPLINARY PLAN: [facility] Inpatient Rehab Unit Plan of Care IRU Interdisciplinary Care Plan Start: 12/30/18 15:41 Freq: Status: Active Protocol: Document 12/31/18 21:02 TH (Rec: 12/31/18 21:19 TH [id number]) Interdisciplinary Problem List Interdisciplinary Problem List Interdisciplinary Problem List Impaired Eating/Swallowing, Query Text:Answers will Trigger Problems Impaired Bathing/Grooming, and Outcomes on Worklist. Impaired Dressing,Impaired Mobility,Impaired Transfers, Impaired Toileting,Impaired Nutrition,Impaired Problem Solving,Impaired Memory, Knowledge Deficits,Discharge Concerns,Impaired Home Management,Impaired Safety, Medications Education,Diabetes Education IRU Interdisciplinary Care Plan Therapy Services Therapy Services Will Include: Physical Therapy,Occupational Query Text:Patient will be seen for a Therapy,Speech Therapy minimum of 3 hours of daily therapy 5 out of 7 days a week. Therapy intensity may be adjusted within a 7 consecutive day period to effectively serve the individual needs of the patient. Treatment Frequency/Intensity/Duration Treatment Frequency 5 days per week Treatment Intensity 3 hours per day Treatment Duration 14-21 days Problem Area: Eating/Swallowing Eating/Swallowing Outcomes Eating/Swallowing Interventions Problem Area: Bathing/Grooming Bathing/Grooming Outcomes Improve [place] w/ Grooming,Improve [place] w/ Bathing Bathing/Grooming Interventions ADL Training,Use of Assistive Devices,Therapeutic Exercise, Therapeutic Activity, Neuromuscular Re-Education, Balance Work,Activity Tolerance Work,Patient/ Caregiver Education Problem Area: Dressing Dressing Outcomes Improve [place] w/ UB Dressing,Improve [place] w/ LB Dressing Dressing Interventions ADL Training,Use of Assistive Devices,Neuromuscular Re- Education,Therapeutic Exercise ,Balance Work,Modalities, Patient/Caregiver Education Problem Area: Mobility Mobility Outcomes Improve [place] w/ Bed Mobility,Improve [place] w/ Ambulation,Improve [place] w/ Stairs/Curb, Improve [place] w/ Wheelchair Mobility Interventions Therapeutic Exercise, Neuromuscular Re-Ed., Modalities,Use of Assistive Devices,Patient/Caregiver Education,Bed Mobility Work, Gait Training Problem Area: Transfers Transfers Outcomes Improve [place] w/ Bed Transfers,Improve [place] w/ Toilet Transfers,Improve [place] w/ Tub/Shower Transfers,Improve [place] w/ Car Transfers Transfers Interventions Transfer Training,Therapeutic Exercise,Neuromuscular Re- Education,Visual/Perceptual Training,Activity Tolerance Work,Modalities,Use of Assistive Devices,Patient/ Caregiver Education Problem Area: Bowel/Bladder Managment Bowel/Bladder Outcomes Bowel/Bladder Interventions Problem Area: Toileting Toileting Outcomes Improve [place] w/ Toileting Toileting Interventions ADL Training,Balance Work,Use of Assistive Devices,Patient/ Caregiver Education Problem Area: Nutrition Nutrition Outcomes Nutrition Interventions Problem Area: Comprehension Comprehension Outcomes Improve Comprehension,Follow Commands,Improve Communication Comprehension Interventions Patient/Caregiver Education Problem Area: Expression Expression Outcomes Expression Interventions Problem Area: Problem Solving Problem Solving Outcomes Improve Problem Solving Problem Solving Interventions Safety Education,Patient/ Caregiver Education Problem Area: Memory Memory Outcomes Memory Interventions Problem Area: Pain Management Pain Management Outcomes Pain Management Interventions Problem Area: Knowledge Deficits Knowledge Deficits Outcomes Verbalize Precautions, Verbalize Understanding of S/S of Stroke Knowledge Deficits Interventions Disease/Injury/Sx. Intervention Education,Disease Management Education,Health Maintainence Education,Safety Education Problem Area: Skin/Tissue Integrity Skin/Tissue Integrity Outcomes Skin/Tissue Integrity Interventions Problem Area: Social Interaction Social Interaction Outcomes Social Interaction Interventions Problem Area: Adjustment to Disability Adjustment to Disability Outcomes Adjustment to Disability Interventions Problem Area: Discharge Concerns Discharge Concerns Outcomes Discharge w/ Necessary Equipment,Have Home Health/ Outpatient Services Discharge Concerns Interventions Discharge Planning,Family/ Caregiver Conference,Family/ Caregiver Training Problem Area: Community Reintegration Community Reintegration Outcomes Community Reintegration Interventions Problem Area: Home Management Home Management Outcomes Improve [place] w/ Home Management Home Management Interventions Clothing Care,Activity Tolerance Work,Patient/ Caregiver Education Problem Area: Safety Safety Outcomes Provide Safe Environment, Demonstrate Good Safety w/ Transfers/Mobility Safety Interventions Identify Fall Risk,[place] Pt. to Environment,Reduce Environmental Hazards,Neuro Check Assessment Problem Area: Medication Education Medication Education Outcomes Patient/Caregiver will Verbalize Understanding of Medications Medication Education Interventions Explain Administration/Side Effects/Interactions Problem Area: Diabetes Education Diabetes Education Outcomes Demonstrate Knowledge of Resources Availlable in Diabetic Ed. Folder Diabetes Education Interventions Discuss Pathophysiology of Diabetes Problem Area: Oxygenation Oxygenation Outcomes Oxygenation Interventions Problem Area: Cardiovascular Cardiovascular Outcomes Maintain or Improve Cardiovascular Status Cardiovascular Interventions Assess Vital Signs at least Every 4 hours Physician Only Medical Prognosis and Rehabilitation Fair medical prognosis and fair rehab potential. Multiple comorbidities including COPD, CHF, DM, HTN, sleep apnea and previous CVA. Monitor for worsening neurologic condition and complications association with comorbidities. Potential (Completed by Physician) This plan of care has been developed based on the findings from the pre- admission assessment, post admission physician evaluation, information gathered from the assessments from all therapy disciplines and other pertinent clinicians. The plan of care has been reviewed and discussed in collaboration with the interdisciplinary team. The plan of care will be reviewed and updated at least weekly.
[2018-12-31] MEDS: BENADRYL PO PRN (22:37)
[2018-12-31] MEDS: LANTUS SUB-Q SCH (22:39)
[2018-12-31] MEDS: LOVENOX SUB-Q SCH (22:40)
[2019-01-01 06:59] LABS: Hematocrit 38.6 % (30.3-42.9); Mean Corpuscular HGB Conc 34 % (30-34); Mean Corpuscular Volume 92 fl (79-97); Platelet Count 284 K/mm3 (140-440); Red Blood Count 4.21 M/mm3 (3.65-5.03)
[2019-01-01 07:04] LABS: BUN/Creatinine Ratio 23; Blood Urea Nitrogen 18 mg/dL (7-17); Calcium 9.5 mg/dL (8.4-10.2); Hemolysis Index 5
[2019-01-01] MEDS: HumaLOG SUB-Q SCH ×3 (07:30→17:01)
[2019-01-01] MEDS: NORMODYNE PO SCH ×3 (08:56→22:00)
[2019-01-01] MEDS: PLAVIX PO SCH (08:56)
[2019-01-01] MEDS: HALFPRIN EC PO SCH (08:57)
[2019-01-01] MEDS: PEPCID PO SCH ×2 (08:58→21:59)
[2019-01-01] MEDS: PERCOCET 5/325 PO PRN (09:20)
[2019-01-01] MEDS: PROCARDIA XL PO SCH (09:20)
[2019-01-01] MEDS: APRESOLINE PO SCH ×3 (09:24→20:00)
[2019-01-01] MEDS: HABITROL TD SCH (09:25)
[2019-01-01] MEDS: PROzac PO SCH ×2 (09:26→21:59)
[2019-01-01] MEDS: DUONEB *Not for PRN Use IH SCH ×2 (14:04→20:59)
--- NOTE | 2019-01-01 20:42 | Progress Note ---
Subjective Date of service: 01/01/19 Principal diagnosis: CVA Interval history: 48-year-old left-hand dominant female with a history of 2 prior CVAs who developed left-sided weakness the morning of presentation to the ED. Previous to the new weakness she was able to walk and had normalized strength on the left. States that she did use a cane at times but was independent with all ADLs. She admits she did sit in order to cook due to balance issues. On presentation to the ED she had left-sided weakness which later improved accompanied with slurred speech and left facial droop. She reports she had a fall 2 days previously where she hit her head. She had a fall in the hospital on 12/25 and she has a left-sided facial hematoma along with subconjunctival hemorrhage and complains of blurred vision on the left. Apparently she is also had a couple more falls since being admitted. Patient admits to continuing smoking at least a pack a day along with poorly controlled diabetes and hyper tension. Discussed with patient at length secondary stroke prevention and the need for her to stop smoking along with control her blood pressure and blood sugar in order to reduce her risk of recurrent strokes. She also reportedly had a GI bleed within the last 90 days. Stroke protocol was started, MRI brain showed multifocal punctate areas in the right parietal lobe. Carotid duplex showed minimal changes that were not significant. Echocardiogram showed moderate concentric left ventricular hypertrophy with an estimated EF of 50-55% and global left ventricular systolic function at the lower limits of normal and no vegetations. Repeat head CT showed an evolving subacute right MCA ischemic infarct with no hemorrhage identified. CT face showed no acute fracture, hematoma overlying the left cheek and orbit. Patient is participating in therapy and making reasonable progress. Taking rest breaks as needed. Decreased sleep and wants something to help her rest. States she wants to go home next week and needs HH. Informed her that she was not quite ready for that but she says it is her birthday and she wants to go. Still having right calf pain, Doppler was NEG for DVT, leg/foot still quite swollen. +BM. Otherwise, denies H/A, pain, palpitations, dyspnea, cough, N/V. All records, vitals, labs and medications were reviewed. No other issues per patient, nursing or therapy. Objective - Exam Narrative Exam: MUSCULOSKELETAL SPECIALTY EXAM CONSTITUTIONAL: Well developed, well nourished, appropriately groomed, obese. LEFT hand dominant. RESPIRATORY: Bilateral wheezes, no increased work of breathing CARDIOVASCULAR: Regular Rate/ Rhythm. Bilateral lower extremity edema worse on the right, mild tenderness with calf squeeze. All extremities warm. GI: + bowel sounds, soft, NTTP, nondistended. INTEGUMENTARY: Normal, no lesion, rash, masses or bruising noted in extremities. Left facial hematoma and subconjunctival hemorrhage. MUSCULOSKELETAL: BUE and BLE normal without defect, crepitus, subluxation, effusion, arthritic changes or TTP. SA EF WE EE FF FA HF KE ADF EHL APF R 5/5 5/5 5/5 5/5 5/5 5/5 5/5 5/5 5/5 5/5 5/5 L 4/5 4/5 4/5 4/5 4/5 4/5 4/5 4/5 4/5 4/5 4/5 ROM slightly decreased on left, normal on right Tone normal NEURO: CN II - XII intact except for Left facial droop Sensation intact in all extremities without extinction. No tremor noted in 4 extremities. Naming and repetition intact. Follows 2 step commands. Aphasia not appreciated Dysarthria not appreciated Dysphagia not appreciated Neglect not appreciated POSTURE and GAIT: Sitting posture good. Balance appears reasonable. Gait deferred until seen with therapy. PSYCH: Alert, orientated x3, affect appears euthymic. Insight appears intact with some decreased awareness of deficits. - Constitutional Vitals: Vital Signs - 12hr 01/01/19 01/01/19 01/01/19 13:07 13:55 14:07 Temperature Pulse Rate Pulse Rate [ 58 L 59 L Bilateral] Respiratory 18 18 Rate [Bilateral ] Blood Pressure 135/83 [Right] O2 Sat by Pulse Oximetry 01/01/19 01/01/19 14:08 16:07 Temperature 36.6 C Pulse Rate 77 Pulse Rate [ Bilateral] Respiratory Rate [Bilateral ] Blood Pressure 172/91 [Right] O2 Sat by Pulse 95 Oximetry - Allied health notes Allied health notes reviewed: nursing, PT, ST, OT FIMS assessment as documented by PT/OT/ST: Grooming Patient cleans teeth/dentures: Yes Patient ornelas/brushes hair: Yes Patient washes, rinses and Yes dries face: Patient washes, rinses and Yes dries hands: Patient shaves: Yes Patient performs (w/ make-up/ 5/5 (100%) shaving): Grooming FIM Score 5. Supervision ([place] applies toothpaste or opens containers.) Toileting Toileting Device Grab Bar Patient able to: Adjust clothes before,Clean self,Adjust clothes after Patient able to perform: 3/3 (100%) Toileting FIM Score 4. Minimal Assistance (Patient = 75% or more. Needs touching.) Social interaction/Memory/Problem solving Social Interaction FIM Score 6. Mod. [place] (Mostly appropriate. May need meds. No supv.) Memory FIM Score 5. Supervision (Needs cueing <10%, stressful/ unfamiliar situations.) Problem Solving FIM Score 4. Minimal Assistance (Solves routine problems 75-90%.) Transfers Mode of Locomotion: Walking Bed/Chair/Wheelchair Transfers 5. Supervision (Needs supv. or set-up for FIM Score sliding board, foot rests.) Patient transferred to: Shower Shower Transfers FIM Score 4. Minimal Assistance (Patient = 75% or more. Needs touching.) Locomotion- Stairs Device used on Stairs Handrail/s Number of Stairs Ascended/ 12 Descended Patient used handrail/support: Yes Stairs FIM Score 5. Supervision (12-14 stairs w/ supv. 4-6 stairs independently.) Locomotion- walk/wheelchair Ambulation Distance 155 Walking FIM Score 4. Minimal Assistance (Patient = 75% or more. Minimum of 150 ft.) Wheelchair Propulsion Distance 150 Wheelchair FIM Score 5. Supervision (Minimum 150 ft. supv./cues or 50 ft. independently.) Eating Eating FIM Score 5. Supervision/Set-Up (Needs help w/ containers, cutting meat, etc.) Dressing-Upper body Patient retrieves clothing No items: Patient applies/removes UE n/a prosthesis or orthosis: Upper Body Dressing FIM Score 3. Moderate Assistance (Patient = 50% or more) Dressing-lower body Patient retrieves clothing No items: Patient applies/removes LE n/a prosthesis or orthosis: Lower Body Dressing FIM Score 3. Moderate Assistance (Patient = 50% or more) - Labs CBC & Chem 7: 01/01/19 06:20 01/01/19 06:20 Labs: Laboratory Results - last 72 hr 12/30/18 12/30/18 12/30/18 07:48 08:53 08:53 WBC 8.1 RBC 4.31 Hgb 13.2 Hct 39.7 MCV 92 MCH 31 MCHC 33 RDW 15.5 H Plt Count 272 Lymph % (Auto) 30.4 Teller % (Auto) 7.4 H Eos % (Auto) 2.4 Baso % (Auto) 0.9 Lymph # 2.5 Teller # 0.6 Eos # 0.2 Baso # 0.1 Seg Neutrophils % 58.9 Seg Neutrophils # 4.8 Sodium 138 Potassium 6.6 H* Chloride 101.8 Carbon Dioxide 23 Anion Gap 20 BUN 26 H Creatinine 0.8 Estimated GFR > 60 BUN/Creatinine Ratio 33 Glucose 253 H POC Glucose 166 H Calcium 9.1 Total Bilirubin 0.30 AST 38 ALT 23 Alkaline Phosphatase 45 Total Protein 7.2 Albumin 3.4 L Albumin/Globulin Ratio 0.9 12/30/18 12/30/18 12/30/18 11:05 11:59 15:56 WBC RBC Hgb Hct MCV MCH MCHC RDW Plt Count Lymph % (Auto) Teller % (Auto) Eos % (Auto) Baso % (Auto) Lymph # Teller # Eos # Baso # Seg Neutrophils % Seg Neutrophils # Sodium 137 Potassium 4.7 D Chloride 101.9 Carbon Dioxide 21 L Anion Gap 19 BUN 29 H Creatinine 0.8 Estimated GFR > 60 BUN/Creatinine Ratio 36 Glucose 297 H POC Glucose 220 H 183 H Calcium 9.0 Total Bilirubin 0.20 AST 17 ALT 16 Alkaline Phosphatase 116 Total Protein 6.9 Albumin 3.6 L Albumin/Globulin Ratio 1.1 12/30/18 12/31/18 12/31/18 22:53 07:53 11:45 WBC RBC Hgb Hct MCV MCH MCHC RDW Plt Count Lymph % (Auto) Teller % (Auto) Eos % (Auto) Baso % (Auto) Lymph # Teller # Eos # Baso # Seg Neutrophils % Seg Neutrophils # Sodium Potassium Chloride Carbon Dioxide Anion Gap BUN Creatinine Estimated GFR BUN/Creatinine Ratio Glucose POC Glucose 393 H 140 H 212 H Calcium Total Bilirubin AST ALT Alkaline Phosphatase Total Protein Albumin Albumin/Globulin Ratio 12/31/18 12/31/18 01/01/19 16:31 22:16 06:20 WBC 7.8 RBC 4.21 Hgb 13.0 Hct 38.6 MCV 92 MCH 31 MCHC 34 RDW 15.0 Plt Count 284 Lymph % (Auto) Teller % (Auto) Eos % (Auto) Baso % (Auto) Lymph # Teller # Eos # Baso # Seg Neutrophils % Seg Neutrophils # Sodium Potassium Chloride Carbon Dioxide Anion Gap BUN Creatinine Estimated GFR BUN/Creatinine Ratio Glucose POC Glucose 277 H 312 H Calcium Total Bilirubin AST ALT Alkaline Phosphatase Total Protein Albumin Albumin/Globulin Ratio 01/01/19 01/01/19 01/01/19 06:20 08:49 11:50 WBC RBC Hgb Hct MCV MCH MCHC RDW Plt Count Lymph % (Auto) Teller % (Auto) Eos % (Auto) Baso % (Auto) Lymph # Teller # Eos # Baso # Seg Neutrophils % Seg Neutrophils # Sodium 140 Potassium 4.6 Chloride 103.7 Carbon Dioxide 23 Anion Gap 18 BUN 18 H Creatinine 0.8 Estimated GFR > 60 BUN/Creatinine Ratio 23 Glucose 156 H POC Glucose 219 H 182 H Calcium 9.5 Total Bilirubin AST ALT Alkaline Phosphatase Total Protein Albumin Albumin/Globulin Ratio 01/01/19 16:20 WBC RBC Hgb Hct MCV MCH MCHC RDW Plt Count Lymph % (Auto) Teller % (Auto) Eos % (Auto) Baso % (Auto) Lymph # Teller # Eos # Baso # Seg Neutrophils % Seg Neutrophils # Sodium Potassium Chloride Carbon Dioxide Anion Gap BUN Creatinine Estimated GFR BUN/Creatinine Ratio Glucose POC Glucose 193 H Calcium Total Bilirubin AST ALT Alkaline Phosphatase Total Protein Albumin Albumin/Globulin Ratio Assessment and Plan I69.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 Monitor for poststroke depression, shoulder-hand syndrome and neurologic decline. Prognosis discussed with patient as well as the importance of adhering to poststroke precautions. Z73.6 ADL dysfunction: OT will work on improving ability to perform ADLs (including assistive devices) to increase independence and decrease caregiver burden and improve functional transfers and mobility training. R26.2 Difficulty walking: PT will work on gait training and proper use of assistive devices and advance as appropriate to use of stairs and outside ambulation on uneven surfaces. R26.81 Unsteadiness on feet: PT will work on improving static and dynamic sitting and standing balance as well as proper use of assistive devices to decrease risk of falls. R26.89 Abnormality of gait: PT will work to improve safety and efficiency of gait through neuromotor training and gait training along with instruction on proper use of assistive devices. M62.81 Muscle weakness: PT & OT will work on strengthening exercises to improve functional strength including mixture of closed and open kinetic chain e xercises. R53.81 Debility: PT & OT will work on improving overall functional status to improve participation with ADLs, mobility and social involvement. R53.83 Fatigue: PT & OT will work on improving endurance through aerobic exercises and therapeutic activity while monitoring patients tolerance for activity and vital signs as needed. F33.9 Depression: Continue medications monitor for worsening symptoms. I50.9 CHF: Continue diuresis, daily weights, monitor for worsening symptoms and volume overload her E11.69 Diabetes: Continue medications, cardiac control diet, diet education I10 Hypertension: Continue medications monitor for normotension and adjust medications as needed. J44.9 COPD: start duonebs and monitor. Order right lower extremity Doppler ultrasound to rule out DVT. DVT ppx: Was previously just on mechanical, will start Lovenox daily. Monitor for bleeding or drops in hemoglobin. Pain: Continue physical modalities in therapy and pain medications as needed to achieve functional pain control. Continue pain medications at a low-dose, patient states she takes Percocet 10 mg at home for fibromyalgia. Warm compress for eye. Sleep: Monitor and address as needed. Trazodone started Bowel: Monitor and address as needed. Appetite: Monitor and address as needed. Discharge planning: Pending therapy progress and care plan meeting. Will continue discussion with therapy team, SW, patient and family. Restrictions/ Precautions: Falls WB status: FWB Functional Hx: ADLs: Independent Cognition: Independent Mobility: Cane Barriers to Discharge: Decreased mobility and ability to perform self care, balance deficits, weakness, decreased awareness of deficits, decreased medical compliance Estimated Length of Stay: 14-21 days Discharge Destination: Home with family
[2019-01-01] MEDS: DESYREL PO SCH (21:57)
[2019-01-01] MEDS: BENADRYL PO PRN (21:57)
[2019-01-01] MEDS: LOVENOX SUB-Q SCH (21:57)
[2019-01-02] MEDS: LANTUS SUB-Q SCH ×2 (00:59→22:48)
[2019-01-02] MEDS: HumaLOG SUB-Q SCH ×5 (00:59→22:45)
[2019-01-02] MEDS: PERCOCET 5/325 PO PRN ×2 (04:00→09:13)
[2019-01-02] MEDS: DUONEB *Not for PRN Use IH SCH ×4 (08:57→19:41)
[2019-01-02] MEDS: PROCARDIA XL PO SCH (09:04)
[2019-01-02] MEDS: HABITROL TD SCH (09:04)
[2019-01-02] MEDS: PLAVIX PO SCH (09:04)
[2019-01-02] MEDS: PEPCID PO SCH ×2 (09:04→21:46)
[2019-01-02] MEDS: PROzac PO SCH ×2 (09:05→21:45)
[2019-01-02] MEDS: HALFPRIN EC PO SCH (09:05)
[2019-01-02] MEDS: APRESOLINE PO SCH ×3 (09:06→20:54)
[2019-01-02] MEDS: NORMODYNE PO SCH ×2 (09:06→21:46)
[2019-01-02] MEDS: BENADRYL PO PRN (21:47)
[2019-01-02] MEDS: DESYREL PO SCH (21:48)
[2019-01-02] MEDS: LOVENOX SUB-Q SCH (21:48)
[2019-01-03] MEDS: HumaLOG SUB-Q SCH ×4 (08:37→22:14)
[2019-01-03] MEDS: PERCOCET 5/325 PO PRN ×3 (08:42→22:12)
[2019-01-03] MEDS: HABITROL TD SCH ×3 (08:48→09:07)
[2019-01-03] MEDS: APRESOLINE PO SCH ×3 (08:48→20:13)
[2019-01-03] MEDS: DUONEB *Not for PRN Use IH SCH ×3 (08:49→20:35)
[2019-01-03] MEDS: PLAVIX PO SCH ×2 (08:50→09:07)
[2019-01-03] MEDS: PROCARDIA XL PO SCH ×2 (08:51→09:07)
[2019-01-03] MEDS: HALFPRIN EC PO SCH ×2 (08:52→09:06)
[2019-01-03] MEDS: PEPCID PO SCH ×3 (08:52→22:13)
[2019-01-03] MEDS: NORMODYNE PO SCH ×3 (08:53→22:13)
[2019-01-03] MEDS: PROzac PO SCH ×2 (13:00→22:14)
[2019-01-03] MEDS: BENADRYL PO PRN (22:12)
[2019-01-03] MEDS: LOVENOX SUB-Q SCH (22:14)
[2019-01-03] MEDS: DESYREL PO SCH (22:14)
[2019-01-03] MEDS: LANTUS SUB-Q SCH (22:15)
[2019-01-04] MEDS: DUONEB *Not for PRN Use IH SCH ×3 (07:32→20:13)
[2019-01-04] MEDS: HumaLOG SUB-Q SCH ×4 (08:54→21:50)
[2019-01-04] MEDS: APRESOLINE PO SCH ×3 (08:55→21:42)
[2019-01-04] MEDS: NORMODYNE PO SCH ×2 (09:00→21:41)
[2019-01-04] MEDS: PLAVIX PO SCH (09:00)
[2019-01-04] MEDS: PROCARDIA XL PO SCH (09:00)
[2019-01-04] MEDS: HABITROL TD SCH (09:00)
[2019-01-04] MEDS: PROzac PO SCH ×2 (09:00→21:40)
[2019-01-04] MEDS: PEPCID PO SCH ×3 (09:00→21:56)
[2019-01-04] MEDS: PERCOCET 5/325 PO PRN (09:07)
[2019-01-04] MEDS: HALFPRIN EC PO SCH (09:07)
--- NOTE | 2019-01-04 10:02 | Progress Note ---
Subjective Date of service: 01/04/19 Principal diagnosis: CVA Interval history: 48-year-old left-hand dominant female with a history of 2 prior CVAs who developed left-sided weakness the morning of presentation to the ED. Previous to the new weakness she was able to walk and had normalized strength on the left. States that she did use a cane at times but was independent with all ADLs. She admits she did sit in order to cook due to balance issues. On presentation to the ED she had left-sided weakness which later improved accompanied with slurred speech and left facial droop. She reports she had a fall 2 days previously where she hit her head. She had a fall in the hospital on 12/25 and she has a left-sided facial hematoma along with subconjunctival hemorrhage and complains of blurred vision on the left. Apparently she is also had a couple more falls since being admitted. Patient admits to continuing smoking at least a pack a day along with poorly controlled diabetes and hyper tension. Discussed with patient at length secondary stroke prevention and the need for her to stop smoking along with control her blood pressure and blood sugar in order to reduce her risk of recurrent strokes. She also reportedly had a GI bleed within the last 90 days. Stroke protocol was started, MRI brain showed multifocal punctate areas in the right parietal lobe. Carotid duplex showed minimal changes that were not significant. Echocardiogram showed moderate concentric left ventricular hypertrophy with an estimated EF of 50-55% and global left ventricular systolic function at the lower limits of normal and no vegetations. Repeat head CT showed an evolving subacute right MCA ischemic infarct with no hemorrhage identified. CT face showed no acute fracture, hematoma overlying the left cheek and orbit. Patient is participating in therapy and making reasonable progress. Taking rest breaks as needed. Walking well outside on unlevel surfaces. States she wants to go home as soon as possible. Informed her that she was not quite ready for that but she says it is her birthday and she wants to go. Swelling on left face and subconjunctival hemorrhage are both improving. Vision is also improving in the left eye. +BM. Otherwise, denies H/A, pain, palpitations, dyspnea, cough, N/V. Discussed in team conference, patient is noted to have pretty good physical abilities with PT and is ambulating without much of an issue. She is also doing fairly well with her ADLs however cognitive issues are apparent with decreased insight as well as decreased focus and visual spatial deficits. Due to cognitive deficits she will need close supervision at home. She is requesting to go home as soon as possible prior to this weekend. After discussing during team conference we were all a little apprehensive with her being left alone at home for safety purposes. We are working on determining the amount of supervision that can be provided in her home environment. Also possibility that some of her issues are premorbid and are not due to the stroke. We'll continue to monitor and determine safest placement as a recommendation but ultimately patient may choose to do otherwise. All records, vitals, labs and medications were reviewed. No other issues per patient, nursing or therapy. Objective - Exam Narrative Exam: MUSCULOSKELETAL SPECIALTY EXAM CONSTITUTIONAL: Well developed, well nourished, appropriately groomed, obese. LEFT hand dominant. RESPIRATORY: Bilateral wheezes, no increased work of breathing CARDIOVASCULAR: Regular Rate/ Rhythm. Bilateral lower extremity edema worse on the right, mild tenderness with calf squeeze. All extremities warm. GI: + bowel sounds, soft, NTTP, nondistended. INTEGUMENTARY: Normal, no lesion, rash, masses or bruising noted in extremities. Left facial hematoma and subconjunctival hemorrhage both improving MUSCULOSKELETAL: BUE and BLE normal without defect, crepitus, subluxation, effusion, arthritic changes or TTP. SA EF WE EE FF FA HF KE ADF EHL APF R 5/5 5/5 5/5 5/5 5/5 5/5 5/5 5/5 5/5 5/5 5/5 L 4/5 4/5 4/5 4/5 4/5 4/5 4/5 4/5 4/5 4/5 4/5 ROM slightly decreased on left, normal on right Tone normal NEURO: CN II - XII intact except for Left facial droop Sensation intact in all extremities without extinction. No tremor noted in 4 extremities. Naming and repetition intact. Follows 2 step commands. Aphasia not appreciated Dysarthria not appreciated Dysphagia not appreciated Neglect not appreciated POSTURE and GAIT: Sitting posture good. Balance appears reasonable. Gait improved with rolling walker, no loss of balance. PSYCH: Alert, orientated x3, affect appears euthymic. Insight appears intact with some decreased awareness of deficits, possibly premorbid. - Constitutional Vitals: Vital Signs - 12hr 05/06/19 05/06/19 05/06/19 22:12 22:13 23:12 Temperature Pulse Rate 120 H Pulse Rate [ Bilateral] Respiratory 20 18 Rate Respiratory Rate [Bilateral ] Blood Pressure 170/90 O2 Sat by Pulse Oximetry 01/04/19 01/04/19 01/04/19 07:13 07:30 07:42 Temperature 36.7 C Pulse Rate 85 Pulse Rate [ 74 74 Bilateral] Respiratory 18 Rate Respiratory 16 16 Rate [Bilateral ] Blood Pressure 136/87 O2 Sat by Pulse 92 Oximetry 01/04/19 09:07 Temperature Pulse Rate Pulse Rate [ Bilateral] Respiratory 18 Rate Respiratory Rate [Bilateral ] Blood Pressure O2 Sat by Pulse Oximetry - Allied health notes Allied health notes reviewed: nursing, PT, ST, OT FIMS assessment as documented by PT/OT/ST: Grooming Patient cleans teeth/dentures: Yes Patient ornelas/brushes hair: Yes Patient washes, rinses and Yes dries face: Patient washes, rinses and Yes dries hands: Patient shaves: Yes Patient performs (w/ make-up/ 5/5 (100%) shaving): Grooming FIM Score 5. Supervision ([place] applies toothpaste or opens containers.) Toileting Toileting Device Grab Bar Patient able to: Adjust clothes before,Clean self,Adjust clothes after Patient able to perform: 3/3 (100%) Toileting FIM Score 4. Minimal Assistance (Patient = 75% or more. Needs touching.) Social interaction/Memory/Problem solving Social Interaction FIM Score 7. Complete [place] (Interacts appropriately. Controls temper.) Memory FIM Score 6. Modified [place](Mild difficulty remembering people/routines.) Problem Solving FIM Score 6. Mod. [place] (Mild difficulty or needs more time w/ complex.) Transfers Mode of Locomotion: Wheelchair Bed/Chair/Wheelchair Transfers 5. Supervision (Needs supv. or set-up for FIM Score sliding board, foot rests.) Patient transferred to: Shower Shower Transfers FIM Score 4. Minimal Assistance (Patient = 75% or more. Needs touching.) Locomotion- Stairs Device used on Stairs Handrail/s Number of Stairs Ascended/ 12 Descended Patient used handrail/support: Yes Stairs FIM Score 5. Supervision (12-14 stairs w/ supv. 4-6 stairs independently.) Locomotion- walk/wheelchair Most Frequent Mode of Wheelchair Locomotion: Ambulation Distance 553 Walking FIM Score 5. Supervision (Minimum 150 ft. supv./cues or 50 ft. independently.) Wheelchair Propulsion Distance 150 Wheelchair FIM Score 5. Supervision (Minimum 150 ft. supv./cues or 50 ft. independently.) Eating Eating FIM Score 5. Supervision/Set-Up (Needs help w/ containers, cutting meat, etc.) Dressing-Upper body Patient retrieves clothing No items: Patient applies/removes UE n/a prosthesis or orthosis: Upper Body Dressing FIM Score 3. Moderate Assistance (Patient = 50% or more) Dressing-lower body Patient retrieves clothing No items: Patient applies/removes LE n/a prosthesis or orthosis: Lower Body Dressing FIM Score 3. 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 Monitor for poststroke depression, shoulder-hand syndrome and neurologic decline. Prognosis discussed with patient as well as the importance of adhering to poststroke precautions. Z73.6 ADL dysfunction: OT will work on improving ability to perform ADLs (including assistive devices) to increase independence and decrease caregiver burden and improve functional transfers and mobility training. R26.2 Difficulty walking: PT will work on gait training and proper use of assistive devices and advance as appropriate to use of stairs and outside ambulation on uneven surfaces. R26.81 Unsteadiness on feet: PT will work on improving static and dynamic sitting and standing balance as well as proper use of assistive devices to decrease risk of falls. R26.89 Abnormality of gait: PT will work to improve safety and efficiency of gait through neuromotor training and gait training along with instruction on proper use of assistive devices. M62.81 Muscle weakness: PT & OT will work on strengthening exercises to improve functional strength including mixture of closed and open kinetic chain e xercises. R53.81 Debility: PT & OT will work on improving overall functional status to improve participation with ADLs, mobility and social involvement. R53.83 Fatigue: PT & OT will work on improving endurance through aerobic exercises and therapeutic activity while monitoring patients tolerance for activity and vital signs as needed. F33.9 Depression: Continue medications monitor for worsening symptoms. I50.9 CHF: Continue diuresis, daily weights, monitor for worsening symptoms and volume overload her E11.69 Diabetes: Continue medications, cardiac control diet, diet education I10 Hypertension: Continue medications monitor for normotension and adjust medications as needed. J44.9 COPD: start duonebs and monitor. Right lower extremity Doppler ultrasound NEG for DVT. DVT ppx: Was previously just on mechanical, will start Lovenox daily. Monitor for bleeding or drops in hemoglobin. Pain: Continue physical modalities in therapy and pain medications as needed to achieve functional pain control. Continue pain medications at a low-dose, patient states she takes Percocet 10 mg at home for fibromyalgia. Warm compress for eye. Sleep: Monitor and address as needed. Trazodone started Bowel: Monitor and address as needed. Appetite: Monitor and address as needed. Discharge planning: Pending therapy progress and care plan meeting. Will continue discussion with therapy team, SW, patient and family. Restrictions/ Precautions: Falls WB status: FWB Functional Hx: ADLs: Independent Cognition: Independent Mobility: Cane Barriers to Discharge: Decreased mobility and ability to perform self care, balance deficits, weakness, decreased awareness of deficits, decreased medical compliance Estimated Length of Stay: 14-21 days Discharge Destination: Home with family, will need supervision at home and we are assessing how much is available.
[2019-01-04] MEDS: DESYREL PO SCH (21:40)
[2019-01-04] MEDS: LOVENOX SUB-Q SCH (21:41)
[2019-01-04] MEDS: LANTUS SUB-Q SCH (21:42)
[2019-01-04] MEDS: BENADRYL PO PRN (21:54)
[2019-01-05] MEDS: HumaLOG SUB-Q SCH ×4 (08:46→22:37)
[2019-01-05] MEDS: PEPCID PO SCH ×2 (09:52→22:33)
[2019-01-05] MEDS: PLAVIX PO SCH (09:52)
[2019-01-05] MEDS: PROCARDIA XL PO SCH (09:53)
[2019-01-05] MEDS: PROzac PO SCH ×2 (09:53→22:33)
[2019-01-05] MEDS: APRESOLINE PO SCH ×3 (09:54→22:33)
[2019-01-05] MEDS: PERCOCET 5/325 PO PRN ×2 (09:54→22:31)
[2019-01-05] MEDS: HALFPRIN EC PO SCH ×2 (09:54→09:55)
[2019-01-05] MEDS: HABITROL TD SCH (09:55)
[2019-01-05] MEDS: DUONEB *Not for PRN Use IH SCH ×2 (10:47→17:45)
[2019-01-05] MEDS: NORMODYNE PO SCH ×2 (11:00→23:18)
[2019-01-05] MEDS: LOVENOX SUB-Q SCH (22:33)
[2019-01-05] MEDS: LANTUS SUB-Q SCH (22:34)
[2019-01-05] MEDS: DESYREL PO SCH (23:18)
[2019-01-05] MEDS: BENADRYL PO PRN (23:18)
[2019-01-06] MEDS: DUONEB *Not for PRN Use IH SCH ×3 (04:08→14:22)
[2019-01-06 09:21] VITALS: BP 131/76
[2019-01-06] MEDS: PLAVIX PO SCH (10:00)
[2019-01-06] MEDS: APRESOLINE PO SCH ×2 (10:03→14:24)
[2019-01-06] MEDS: PERCOCET 5/325 PO PRN (10:03)
[2019-01-06] MEDS: PROzac PO SCH (10:03)
[2019-01-06] MEDS: PROCARDIA XL PO SCH (10:03)
[2019-01-06] MEDS: PEPCID PO SCH (10:03)
[2019-01-06] MEDS: HALFPRIN EC PO SCH (10:03)
[2019-01-06] MEDS: HABITROL TD SCH (10:04)
[2019-01-06] MEDS: NORMODYNE PO SCH (10:08)
--- NOTE | 2019-01-06 11:55 | Discharge Summary ---
Providers - Providers Date of Admission: 12/29/18 14:52 Date of discharge: 01/06/19 Attending physician: ROGELIO GALLOWAY III, MD 12/29/18 14:16 Occupational Therapy Evaluate and Treat [CONS] Routine Comment: Reason For Exam: ADL dysfunction Physical Therapy Evaluation and Treat [CONS] Routine Comment: Reason For Exam: Mobility Dysfunction Speech Therapy Evaluation and Treat [CONS] Routine Reason For Exam: CVA 12/29/18 14:25 Consult to Case Management [CONS] Routine Services Needed at Discharge: Home Health Services Notified:: PALS SPECIALISTmemory care program director physician: CARLOS JULIO Hospitalization Reason for admission: CVA Condition: Good Hospital course: 48-year-old left-hand dominant female with a history of 2 prior CVAs who developed left-sided weakness the morning of presentation to the ED. Previous to the new weakness she was able to walk and had normalized strength on the left. States that she did use a cane at times but was independent with all ADLs. She admits she did sit in order to cook due to balance issues. On presentation to the ED she had left-sided weakness which later improved accompanied with slurred speech and left facial droop. She reports she had a fall 2 days previously where she hit her head. She had a fall in the hospital on 12/25 and she has a left-sided facial hematoma along with subconjunctival hemorrhage and complains of blurred vision on the left. Apparently she is also had a couple more falls since being admitted. Patient admits to continuing smoking at least a pack a day along with poorly controlled diabetes and hypertension. Discussed with patient at length secondary stroke prevention and the need for her to stop smoking along with control her blood pressure and blood sugar in order to reduce her risk of recurrent strokes. She also reportedly had a GI bleed within the last 90 days. Stroke protocol was started, MRI brain showed multifocal punctate areas in the right parietal lobe. Carotid duplex showed minimal changes that were not significant. Echocardiogram showed moderate concentric left ventricular hypertrophy with an estimated EF of 50-55% and global left ventricular systolic function at the lower limits of normal and no vegetations. Repeat head CT showed an evolving subacute right MCA ischemic infarct with no hemorrhage identified. CT face showed no acute fracture, hematoma overlying the left cheek and orbit. Patient progress well and quickly from this CVA. She was able to handle higher level movements on uneven surfaces and was even noted to be able to dance with therapist without any assistance or loss of balance. Facial hematoma improved during her time here and the subconjunctival hemorrhage is almost fully dissipated by the time she was discharged. Hypertension and hyperglycemia were both fairly well controlled on her current medication regimen. Spoke with her sister who had reservations about her going home and expressed concern over her balance and ability to avoid falls. Splinting to the sister, who had not seen her for several days, that the patient was being challenged with everything we could challenge her with for higher level balance and functioning and that she was passing all the tests we could test her with. She will be going home with assistance from her son who is already there per the patient. Disposition: [id number] HOME UNDER HOME [facility] Time spent for discharge: >30 mins - Discharge Diagnoses (1) CVA (cerebral vascular accident) Status: Acute (2) Congestive heart failure Status: Chronic (3) Diabetes mellitus type 2 in obese Status: Chronic (4) Hypertension Status: Chronic Qualifiers: Hypertension type: essential hypertension Qualified Code(s): I10 - Essential (primary) hypertension Core Measure Documentation - Palliative Care Palliative Care/ Comfort Measures: Not Applicable - Core Measures Any of the following diagnoses?: heart failure, stroke - Heart Failure Discharge Requirements LARA/ARB for LVSD if EF <40%: Not Applicable Beta efraín at discharge: Yes - Stroke Discharge Requirements Statin for LDL = or >70 mg/dl on DC: Yes Anticoag for atrial fib/atrial flutter: Not Applicable Antithrombotic for ischemic stroke: Yes Exam - Physical Exam Narrative exam: MUSCULOSKELETAL SPECIALTY EXAM CONSTITUTIONAL: Well developed, well nourished, appropriately groomed, obese. LEFT hand dominant. RESPIRATORY: Bilateral wheezes, no increased work of breathing CARDIOVASCULAR: Regular Rate/ Rhythm. Bilateral lower extremity edema worse on the right, mild tenderness with calf squeeze. All extremities warm. GI: + bowel sounds, soft, NTTP, nondistended. INTEGUMENTARY: Normal, no lesion, rash, masses or bruising noted in extremities. Left facial hematoma and subconjunctival hemorrhage both improving MUSCULOSKELETAL: BUE and BLE normal without defect, crepitus, subluxation, effusion, arthritic changes or TTP. SA EF WE EE FF FA HF KE ADF EHL APF R /5 5/5 5/5 5/5 5/5 5/5 5/5 5/5 5/5 5/5 5/5 L 4/5 4/5 4/5 4/5 4/5 4/5 4/5 4/5 4/5 4/5 4/5 ROM slightly decreased on left, normal on right Tone normal NEURO: CN II - XII intact except for Left facial droop Sensation intact in all extremities without extinction. No tremor noted in 4 extremities. Naming and repetition intact. Follows 2 step commands. Aphasia not appreciated Dysarthria not appreciated Dysphagia not appreciated Neglect not appreciated POSTURE and GAIT: Sitting posture good. Balance appears reasonable. Gait improved with rolling walker, no loss of balance. PSYCH: Alert, orientated x3, affect appears euthymic. Insight appears intact with some decreased awareness of deficits, possibly premorbid. - Constitutional Vitals: Temp Pulse Resp BP Pulse Ox 36.6 C 82 18 131/76 96 01/06/19 08:00 01/06/19 09:05 01/06/19 09:05 01/06/19 08:00 01/06/19 04:57 Plan Activity: advance as tolerated, no driving until cleared by PCP, fall precautions Weight Bearing Status: Full Weight Bearing Diet: diabetic Wound: other (cold or warm compress to left face) Special Instructions: record daily weights, record daily BP diary, record blood sugar diary, physical therapy, occupational therapy, home health RN, other (M[facility]IC REHABILITATION THERAPIST) Durable Medical Equipment Needed Upon Discharge: Walker-Rolling, other (3 in 1) Follow up with: CARLOS JULIO MD [Primary Care Provider] - 7 Days Prescriptions: traZODone [Desyrel] 50 mg PO QHS #30 tablet Insulin Glargine [Lantus VIAL] 40 units SUB-Q QHS 30 Days units AtorvaSTATin [Lipitor] 40 mg PO QHS #30 tablet hydrALAZINE [Apresoline TAB] 100 mg PO TID #90 tab Aspirin EC [Aspirin Enteric Coated TAB] 81 mg PO QDAY #30 tablet Nicotine [Habitrol] 14 mg TD QDAY #30 patch Lispro Insulin [HumaLOG] 0 unit SUB-Q ACHS 30 Days units Labetalol [Normodyne TAB] 100 mg PO BID #60 tablet Famotidine [Pepcid] 20 mg PO BID #60 tablet Clopidogrel [Plavix] 75 mg PO QDAY #30 tablet NIFEdipine XL [Procardia Xl] 60 mg PO QDAY #30 tablet FLUoxetine [PROzac] 40 mg PO BID #60 capsule
[2019-01-06] MEDS: HumaLOG SUB-Q SCH (11:58)
== END 2019-01-06 15:00 | disposition home health service (06) | DRG 56 ==
LOC: 3A 13:56 → UNDOADMIN 13:56 → 3B-SURG 14:52
PROVIDERS: ADMIT Physical Medicine & Rehabilitation; ATTEND Physical Medicine & Rehabilitation
DX: I69.354 Hemiplegia and hemiparesis following cerebral infarction affecting left non-dominant side (principal); I63.9 Cerebral infarction, unspecified; F33.9 Major depressive disorder, recurrent, unspecified; Z73.6 Limitation of activities due to disability; R26.89 Other abnormalities of gait and mobility; I50.9 Heart failure, unspecified; I11.0 Hypertensive heart disease with heart failure; J44.9 Chronic obstructive pulmonary disease, unspecified; E11.42 Type 2 diabetes mellitus with diabetic polyneuropathy; Z90.49 Acquired absence of other specified parts of digestive tract; Z90.710 Acquired absence of both cervix and uterus; Z83.3 Family history of diabetes mellitus; Z82.3 Family history of stroke; Z82.49 Family history of ischemic heart disease and other diseases of the circulatory system; Z88.5 Allergy status to narcotic agent
CPT/HCPCS: 36415; 80048; 80053; 82962; 85025; 85027; 94640; 94644; 99406; G0378; G0515; A9270-GY; J1650; J1815

== ENCOUNTER 2019-03-09 17:03 | Inpatient (IN) | payer OTHER ==
--- NOTE | 2019-03-09 17:11 | Emergency Department Report ---
Blank Doc - Documentation Documentation: This is a 49-year-old female that presents with generalized pain with syncopal episode. Stated has had a syncopal episode today. This initial assessment/diagnostic orders/clinical plan/treatment(s) is/are subject to change based on patient's health status, clinical progression and re- assessment by fellow clinical providers in the ED. Further treatment and workup at subsequent clinical providers discretion. Patient/guardians urged not to elope from the ED as their condition may be serious if not clinically assessed and managed. Initial orders include: 1- Patient sent to MAIN for further evaluation and treatment 2- labs 3- EKG 4- CT head
[2019-03-09 17:30] LABS: Basophils # (Auto) 0.1 K/mm3 (0.0-0.1); Basophils % (Auto) 0.8 % (0.0-1.8); Eosinophils # (Auto) 0.2 K/mm3 (0.0-0.4); Hematocrit 46.9 % (30.3-42.9); Hemoglobin 15.6 gm/dl (10.1-14.3); Lymphocytes # (Auto) 3.3 K/mm3 (1.2-5.4); Lymphocytes % (Auto) 42.1 % (13.4-35.0); Mean Corpuscular HGB Conc 33 % (30-34); Mean Corpuscular Volume 90 fl (79-97); Monocytes # (Auto) 0.5 K/mm3 (0.0-0.8); Monocytes % (Auto) 5.9 % (0.0-7.3); Platelet Count 393 K/mm3 (140-440); Red Cell Distribution Width 13.3 % (13.2-15.2)
[2019-03-09 17:39] LABS: INR 1.03 (0.87-1.13)
[2019-03-09 17:40] LABS: Partial Thromboplastin Time 25.8 Sec. (24.2-36.6)
[2019-03-09 17:55] LABS: Albumin 3.9 g/dL (3.9-5); Calcium 9.9 mg/dL (8.4-10.2)
[2019-03-09 18:12] LABS: Chol/HDL Ratio 5.94 %
--- NOTE | 2019-03-09 18:19 | Emergency Department Report ---
ED Syncope HPI - General Chief Complaint: Syncope Stated Complaint: BODY PAIN Time Seen by Provider: 03/09/19 17:10 Source: patient Exam Limitations: no limitations - History of Present Illness Initial Comments: Patient is a 49-year-old female that presented to emergency room with complaints of syncopal episode 6 today. Patient states she is also having pain all over because she ran out of her Percocet and she has a history of fibromyalgia and rheumatoid arthritis. Patient denies chest pain and shortness of breath. Patient denies fever and chills. Patient states that she is passing out while sitting. Patient denies hitting her head. Patient states her symptoms prior to passing out was lightheadedness. Patient states that she's been having intermittent chest pain over the past week but is not having at this time. Patient states the chest pain is better with re st and worse with exertion. Patient states the chest pain is about a 4 out of 10 when she has it. Patient denies shortness of breath. Timing/Prior Episodes: multiple episodes today Precipitating Factors: Positive: lightheadedness Context: sitting Loss of Consciousness: brief (seconds) Current Symptoms: back to normal - Related Data Allergies/Adverse Reactions: Allergies ketorolac [From Toradol] Allergy (Verified 12/21/18 12:12) Hives morphine Allergy (Verified 12/21/18 12:12) Hives Home Medications: Ambulatory Orders Aspirin EC 81 mg PO QDAY #30 tablet 01/06/19 AtorvaSTATin [Lipitor] 40 mg PO QHS #30 tablet 01/06/19 Clopidogrel [Plavix] 75 mg PO QDAY #30 tablet 01/06/19 FLUoxetine [PROzac] 40 mg PO BID #60 capsule 01/06/19 Famotidine [Pepcid] 20 mg PO BID #60 tablet 01/06/19 Insulin Glargine [Lantus VIAL] 40 units SUB-Q QHS 30 Days units 01/06/19 Labetalol [Labetalol 100mg TAB] 100 mg PO BID #60 tablet 01/06/19 Lispro Insulin [HumaLOG] 0 unit SUB-Q ACHS 30 Days units 01/06/19 NIFEdipine XL [Procardia Xl] 60 mg PO QDAY #30 tablet 01/06/19 Nicotine [Habitrol] 14 mg TD QDAY #30 patch 01/06/19 hydrALAZINE [Apresoline TAB] 100 mg PO TID #90 tab 01/06/19 traZODone [Desyrel] 50 mg PO QHS #30 tablet 01/06/19 ED Review of Systems ROS: Stated complaint: BODY PAIN Other details as noted in HPI Constitutional: denies: chills, fever Eyes: denies: eye pain, eye discharge, vision change ENT: denies: ear pain, throat pain Respiratory: denies: cough, shortness of breath, wheezing Cardiovascular: denies: chest pain, palpitations Endocrine: no symptoms reported Gastrointestinal: denies: abdominal pain, nausea, diarrhea Genitourinary: denies: urgency, dysuria, discharge Musculoskeletal: back pain. denies: joint swelling, arthralgia Skin: denies: rash, lesions Neurological: denies: headache, weakness, paresthesias Psychiatric: denies: anxiety, depression Hematological/Lymphatic: denies: easy bleeding, easy bruising ED Past Medical Hx - Past Medical History Previous Medical History?: Yes Hx Hypertension: Yes Hx CVA: Yes (Small stroke left with weak legs/incontinent) Hx Diabetes: Yes Hx GERD: Yes (stomach ulcers) Hx Liver Disease: Yes (nonalcoholic fatty liver) Hx Arthritis: Yes (RA, osteoarthritis) Hx COPD: Yes Hx HIV: Yes - Surgical History Past Surgical History?: Yes Hx Cholecystectomy: Yes Hx Breast Surgery: Yes Additional Surgical History: Hysterectomy - Family History Family history: no significant - Social History Smoking Status: Never Smoker Substance Use Type: None - Medications Home Medications: Home Medications Medication Instructions Recorded Confirmed Last Taken Type Aspirin EC 81 mg PO QDAY #30 tablet 01/06/19 03/09/19 Unknown Rx AtorvaSTATin [Lipitor] 40 mg PO QHS #30 tablet 01/06/19 03/09/19 Unknown Rx Clopidogrel [Plavix] 75 mg PO QDAY #30 tablet 01/06/19 03/09/19 Unknown Rx FLUoxetine [PROzac] 40 mg PO BID #60 capsule 01/06/19 03/09/19 Unknown Rx Famotidine [Pepcid] 20 mg PO BID #60 tablet 01/06/19 03/09/19 Unknown Rx Insulin Glargine [Lantus VIAL] 40 units SUB-Q QHS 30 Days units 01/06/19 03/09/19 Unknown Rx Labetalol [Labetalol 100mg TAB] 100 mg PO BID #60 tablet 01/06/19 03/09/19 Unknown Rx Lispro Insulin [HumaLOG] 0 unit SUB-Q ACHS 30 Days units 01/06/19 03/09/19 Unknown Rx NIFEdipine XL [Procardia Xl] 60 mg PO QDAY #30 tablet 01/06/19 03/09/19 Unknown Rx Nicotine [Habitrol] 14 mg TD QDAY #30 patch 01/06/19 03/09/19 Unknown Rx hydrALAZINE [Apresoline TAB] 100 mg PO TID #90 tab 01/06/19 03/09/19 Unknown Rx traZODone [Desyrel] 50 mg PO QHS #30 tablet 01/06/19 03/09/19 Unknown Rx ED Physical Exam - General Limitations: No Limitations General appearance: alert, in no apparent distress - Head Head exam: Present: atraumatic, normocephalic - Eye Eye exam: Present: normal appearance - ENT ENT exam: Present: mucous membranes moist - Neck Neck exam: Present: normal inspection - Respiratory Respiratory exam: Present: normal lung sounds bilaterally. Absent: respiratory distress - Cardiovascular Cardiovascular Exam: Present: regular rate, normal rhythm. Absent: systolic murmur, diastolic murmur, rubs, gallop - GI/Abdominal GI/Abdominal exam: Present: soft, normal bowel sounds - Rectal Rectal exam: Present: deferred - Extremities Exam Extremities exam: Present: normal inspection - Back Exam Back exam: Present: normal inspection - Neurological Exam Neurological exam: Present: alert, oriented X3 - Psychiatric Psychiatric exam: Present: normal affect, normal mood - Skin Skin exam: Present: warm, dry, intact, normal color. Absent: rash ED Course Vital Signs 03/09/19 03/09/19 03/09/19 17:11 21:45 21:46 Temperature 98.5 F Pulse Rate 70 Respiratory 16 16 Rate Blood Pressure Blood Pressure 107/74 [Right] O2 Sat by Pulse 98 100 Oximetry 03/09/19 03/09/19 03/09/19 22:01 22:15 22:31 Temperature Pulse Rate 43 L 41 L 41 L Respiratory 21 8 L 13 Rate Blood Pressure 176/80 177/75 167/77 Blood Pressure [Right] O2 Sat by Pulse 96 98 94 Oximetry 03/09/19 03/09/19 03/09/19 22:45 23:01 23:15 Temperature Pulse Rate 39 L 38 L 39 L Respiratory 18 12 16 Rate Blood Pressure 167/77 217/91 208/84 Blood Pressure [Right] O2 Sat by Pulse 97 95 99 Oximetry 03/09/19 03/09/19 03/09/19 23:31 23:45 23:51 Temperature Pulse Rate 40 L 42 L 40 L Respiratory 16 10 L Rate Blood Pressure 188/83 192/87 192/87 Blood Pressure [Right] O2 Sat by Pulse 96 97 Oximetry 03/10/19 03/10/19 03/10/19 00:01 00:10 00:19 Temperature Pulse Rate 40 L 41 L 44 L Respiratory 15 12 13 Rate Blood Pressure 193/87 193/87 193/87 Blood Pressure [Right] O2 Sat by Pulse 95 100 99 Oximetry 03/10/19 03/10/19 03/10/19 00:31 00:45 01:15 Temperature Pulse Rate 42 L 43 L 51 L Respiratory 13 20 17 Rate Blood Pressure 155/79 168/76 113/67 Blood Pressure [Right] O2 Sat by Pulse 95 96 99 Oximetry - Reevaluation(s) Reevaluation #2: Discussed all results with patient. Patient will be admitted to the hospitalist service. Patient agrees to plan of care. 03/09/19 21:27 - Consultations Consultation #1: Hospitalist consulted for admission. Hospitalist to admit patient. Hospitalist to assume care patient. 03/09/19 21:29 ED Medical Decision Making - Lab Data Result diagrams: 03/09/19 17:17 03/09/19 17:17 - EKG Data -: EKG Interpreted by Me EKG shows normal: sinus rhythm, axis, intervals, QRS complexes, ST-T waves Rate: bradycardia - Radiology Data Radiology results: report reviewed interpreted by me: No acute finding on chest x-ray. CT head without contrast CLINICAL HISTORY: Syncope FINDINGS: No previous exams are available for comparison. The findings are most consistent with scattered old infarcts involving the right centrum semiovale, periventricular white matter and anterior corpus of callosum with encephalomalacia. There otherwise appears to be mild microvascular angiopathy. There is no clear CT evidence of acute intracranial hemorrhage or significant mass effect at. There is mild ex vacuo dilatation of the right frontal horn. Otherwise, the ventricular system appears appropriate in size given the mild degree of cerebral atrophy. The visualized paranasal sinuses are clear. All CT scans at this location are performed using the CT dose reduction for ALARA by means of automated exposure control. IMPRESSION: There are multiple scattered old infarcts involving right cerebral hemisphere as described at. There is otherwise mild microvascular angiopathy without CT evidence of acute intracranial hemorrhage. CHEST 2 VIEWS INDICATION / CLINICAL INFORMATION: Syncope. COMPARISON: None available. FINDINGS: SUPPORT DEVICES: None. HEART / MEDIASTINUM: No significant abnormality. LUNGS / PLEURA: No significant pulmonary or pleural abnormality. No pneumothorax. ADDITIONAL FINDINGS: No significant additional findings. IMPRESSION: 1. No acute findings. Nuclear medicine ventilation/perfusion lung imaging. 03/09/2019. HISTORY: Elevated d-dimer. Syncope. COMPARISON: Chest x-ray 03/09/2019. Tracer: Technetium 99m MAA 4.81 mCi IV injection and xenon-133 gas 17.45 mCi inhalation. Nuclear medicine ventilation/perfusion lung imaging were performed. Both are relatively homogeneous. Negative for stress suspicious ventilation or perfusion defect. IMPRESSION: Low probability for pulmonary embolus. - Medical Decision Making Patient is a with complaints of syncope and generalized pain. Patient also complains of remote chest pain. Patient found to have Elavil troponin. Patient's troponin was rechecked and it was slightly elevated. Patient placed on heparin drip. Patient also had a d-dimer checked due to her syncope and it was elevated and a nuclear scan was done which showed low probability. Patient chest x-ray negative. Patient had CT negative. Patient admitted to the hospitalist service. - Differential Diagnosis syncope. Cardiogenic. Chest pain. Critical Care Time: Yes Critical care attestation.: If time is entered above; I have spent that time in minutes in the direct care of this critically ill patient, excluding procedure time. Critical Care Time: 35 minutes ED Disposition Clinical Impression: Generalized pain, Syncope and collapse, Elevated troponin, Renal insufficiency, NSTEMI (non-ST elevated myocardial infarction), Elevated d-dimer Chest pain Qualifiers: Chest pain type: unspecified Qualified Code(s): R07.9 - Chest pain, unspecified Disposition: OP ADMIT IP TO THIS HOSP Is pt being admited?: Yes Does the pt Need Aspirin: No Condition: Critical Time of Disposition: 21:27
--- NOTE | 2019-03-09 18:24 | XRay Report ---
CHEST 2 VIEWS INDICATION / CLINICAL INFORMATION: Syncope. COMPARISON: None available. FINDINGS: SUPPORT DEVICES: None. HEART / MEDIASTINUM: No significant abnormality. LUNGS / PLEURA: No significant pulmonary or pleural abnormality. No pneumothorax. ADDITIONAL FINDINGS: No significant additional findings. IMPRESSION: 1. No acute findings. Signer Name: Christian Langford MD Signed: 03/09/2019 6:19 PM Workstation Name: [id number]
--- NOTE | 2019-03-09 19:57 | Cat Scan Report ---
CT head without contrast CLINICAL HISTORY: Syncope FINDINGS: No previous exams are available for comparison. The findings are most consistent with scatt ered old infarcts involving the right centrum semiovale, periventricular white matter and anterior co rpus of callosum with encephalomalacia. There otherwise appears to be mild microvascular angiopathy. There is no clear CT evidence of acute intracranial hemorrhage or significant mass effect at. There is mild ex vacuo dilatation of the right frontal horn. Otherwise, the ventricular system appear s appropriate in size given the mild degree of cerebral atrophy. The visualized paranasal sinuses are clear. All CT scans at this location are performed using the CT dose reduction for [place] by means of automated exposure control. IMPRESSION: There are multiple scattered old infarcts involving right cerebral hemisphere as described at. There is otherwise mild microvascular angiopathy without CT evidence of acute intracranial hemorrhage . Signer Name: Kaden Rendon MD Signed: 03/09/2019 7:53 PM Workstation Name: [id number]
[2019-03-09] MEDS ORDERED: DILAUDID IV ONE (20:11)
[2019-03-09] MEDS ORDERED: ASPIRIN PO ONE (20:11)
--- NOTE | 2019-03-09 21:23 | Nuclear Medicine Report ---
Nuclear medicine ventilation/perfusion lung imaging. 03/09/2019. HISTORY: Elevated d-dimer. Syncope. COMPARISON: Chest x-ray 03/09/2019. Tracer: Technetium 99m MAA 4.81 mCi IV injection and xenon-133 gas 17.45 mCi inhalation. Nuclear medicine ventilation/perfusion lung imaging were performed. Both are relatively homogeneous. Negative for stress suspicious ventilation or perfusion defect. IMPRESSION: Low probability for pulmonary embolus. Signer Name: Zia Chen MD Signed: 03/09/2019 9:18 PM Workstation Name: [id number]
[2019-03-09] MEDS ORDERED: HEPARIN 10,000 UNITS/10 ML IV ONE (21:31)
[2019-03-09 21:54] LABS: Creatine Kinase MB 4.7 ng/mL (0.0-4.0)
[2019-03-09] MEDS: HEPARIN/ 0.45% NACL-25,000 UNIT/500 ML 25,000 UNIT/500 ML BAG IV SCH (22:09)
[2019-03-09] MEDS ORDERED: NITROSTAT SL PRN (22:14)
[2019-03-09] MEDS ORDERED: TYLENOL PO PRN (22:15)
[2019-03-09] MEDS ORDERED: ZOFRAN IV PRN (22:15)
[2019-03-09] MEDS ORDERED: NITRO-BID 2% TP ONE ×2 (23:32→23:37)
[2019-03-10] MEDS ORDERED: APRESOLINE IV ONE (00:12)
[2019-03-10] MEDS ORDERED: DILAUDID ONE (00:59)
[2019-03-10 01:24] LABS: Creatine Kinase MB 4.6 ng/mL (0.0-4.0)
[2019-03-10 04:56] LABS: Creatine Kinase MB 3.8 ng/mL (0.0-4.0)
--- NOTE | 2019-03-10 06:13 | History and Physical Report ---
CHIEF COMPLAINT: Chest pain. Other complaint includes a syncopal attack. HISTORY OF PRESENT ILLNESS: The patient is a 49-year-old female who said that she believes she passed out many times at home and was complaining of generalized body pain with pain in the retrosternal area. There is history of associated shortness of breath, diaphoresis, nausea but no vomiting. The patient denied hitting her head on the ground during the multiple episodes of syncope. She has no fever or chills and no history of cough. The patient admitted to feeling dizzy prior to the syncopal episodes. The patient described her chest pain as intermittent and said that the chest pain is better with rest and worse with exertion. PAST MEDICAL HISTORY: Pertinent for hypertension, cerebrovascular accident, diabetes mellitus, gastroesophageal reflux disease, nonalcoholic fatty liver, rheumatoid arthritis, COPD. Also, the patient is HIV positive. PAST SURGICAL HISTORY: Pertinent for cholecystectomy, breast surgery, hysterectomy. FAMILY HISTORY: Reviewed and noncontributory. SOCIAL HISTORY: The patient does not smoke, does not drink alcohol and does not use illicit drugs. MEDICATIONS: The patient is on the following medications: Aspirin 81 mg by mouth daily, Lipitor 40 mg by mouth at bedtime, Plavix 75 mg by mouth daily, Prozac 40 mg by mouth twice daily, Pepcid 20 mg by mouth daily, Lantus insulin glargine 40 units subcutaneously at bedtime, labetalol 100 mg by mouth twice daily, lispro insulin by sliding scale, Procardia XL 60 mg daily, nicotine 14 mg transdermally daily, hydralazine 100 mg by mouth 3 times daily, trazodone 50 mg by mouth at bedtime. ALLERGIES: THE PATIENT IS ALLERGIC TO MORPHINE AND KETOROLAC. REVIEW OF SYSTEMS: CONSTITUTIONAL: There is no fever, no chills, no diaphoresis. HEENT: There is no headache or sore throat. CARDIOVASCULAR SYSTEM: Chest pain is present. No orthopnea. RESPIRATORY SYSTEM: Shortness of breath is present. No cough. GASTROINTESTINAL SYSTEM: There is nausea but no vomiting. No abdominal pain, diarrhea or constipation. NEUROLOGICAL SYSTEM: Syncopal episodes noted. No change in mental status. MUSCULOSKELETAL SYSTEM: There is no joint pain or swelling. DERMATOLOGICAL SYSTEM: There is no skin rash or itching. GENITOURINARY SYSTEM: There is no dysuria, hematuria or flank pain. Rest of system review is normal. PHYSICAL EXAMINATION: GENERAL: At the time of exam, the patient was found to be alert, oriented x 3 and not in acute distress. VITAL SIGNS: Shows normal temperature of 98.5 degrees Fahrenheit, pulse of 70, respirations 16, blood pressure 107/74, O2 sat of 98% on room air. HEENT: Showed pupils to be equal, round, reactive to light and accommodation. Extraocular muscles are intact. NECK: Supple with no JVD or carotid bruit. CARDIOVASCULAR SYSTEM: Showed normal first and second heart sounds with no gallops or murmurs. RESPIRATORY SYSTEM: Showed good air entry on both sides of the lungs with no abnormal breath sounds. GASTROINTESTINAL SYSTEM: Showed abdomen to be full, soft, nontender with no organomegaly or rigidity. NEUROLOGIC: Showed no focal deficit. MUSCULOSKELETAL SYSTEM: Show no joint swelling or tenderness. DERMATOLOGICAL SYSTEM: Showed no skin rash. GENITOURINARY SYSTEM: Showing no costovertebral angle tenderness. PERTINENT LABORATORY AND IMAGING STUDIES: The patient had a CT of the head without contrast done that shows there are multiple scattered old infarcts involving the right cerebral hemisphere as described above. Otherwise, microvascular angiopathy without CT evidence of acute intracranial hemorrhage. The patient also had chest x-ray done and chest x-ray shows no acute finding. The patient had pulmonary perfusion scan done that showed low probability for pulmonary embolism. Lab result: The patient had CBC done with normal white count, elevated hemoglobin of 15.6 and elevated hematocrit of 46.9 with CBC differential showing high lymphocyte count of 42.1%. The patient's coagulation studies show a high D-dimer level of 531, and the patient's chemistry show a slightly elevated BUN of 22 and a slightly elevated creatinine of 1.3, with first troponin level being high with a value of 0.036. The patient's lipid panel showed a high triglyceride level of 213 with high total cholesterol of 214 and elevated LDL cholesterol of 146. DIAGNOSES: 1. Non-ST elevation myocardial infarction. 2. Syncope. 3. Acute kidney injury. 4. Symptomatic bradycardia. PLAN OF CARE: 1. The patient will be admitted to [facility]. 2. The patient will continue IV heparin drip started in the Emergency Room. 3. The patient will have Cardiology consult with Dr. Christine because of NSTEMI and bradycardia that later on developed. 3. The patient will be on aspirin 325 mg by mouth daily and will be on Tylenol 650 mg by mouth every 4 hours for fever and headache. 4. The patient will be on IV Dilaudid 0.5 mg every 4 hours as needed for pain and IV Zofran 4 mg every 8 hours as needed for nausea and vomiting. 5. The patient will be on nitro paste 0.5 inch to anterior chest wall t.i.d. and will be on Nitrostat 0.4 mg every 5 minutes as needed for breakthrough chest pain. 6. The patient will be on oxygen by nasal cannula at 2 liters per minute. JOB# [id number] OCN/NTS
[2019-03-10] MEDS ORDERED: NITRO-BID 2% TP ONE (09:13)
[2019-03-10] MEDS: NITRO-BID 2% TP SCH ×4 (09:18→18:10)
[2019-03-10] MEDS: ASPIRIN PO SCH (10:16)
--- NOTE | 2019-03-10 11:36 | Consultation ---
History of Present Illness Consult date: 03/10/19 Consult reason: bradycardia, elevated troponin, syncope History of present illness: This is a 49-year old woman with a history of CVA, Hypertension and Diabetes. Patient denies history of coronary artery disease. November of this year an echocardiogram revealed moderate LVH but a normal left ventricular systolic function, EF 50-55%. Patient presents with reports of generalized pain and multiple syncopal episodes. She reports upon standing, her body begins to shake and she wakes up on the floor. Patient denies chest pain, shortness of breath, dizziness and palpitation. Patient denies history of seizure disorder. Head CT scan reports no acute process and a ventilation perfusion scan reports a low probability for PE. An ECG is sinus rhythm with LVH. Cardiac consultation has been requested. Medications and Allergies Allergies Allergy/AdvReac Type Severity Reaction Status Date / Time ketorolac [From Toradol] Allergy Hives Verified 12/21/18 12:12 morphine Allergy Hives Verified 12/21/18 12:12 Home Medications Medication Instructions Recorded Confirmed Last Taken Type Aspirin EC 81 mg PO QDAY #30 tablet 01/06/19 03/09/19 Unknown Rx AtorvaSTATin [Lipitor] 40 mg PO QHS #30 tablet 01/06/19 03/09/19 Unknown Rx Clopidogrel [Plavix] 75 mg PO QDAY #30 tablet 01/06/19 03/09/19 Unknown Rx FLUoxetine [PROzac] 40 mg PO BID #60 capsule 01/06/19 03/09/19 Unknown Rx Famotidine [Pepcid] 20 mg PO BID #60 tablet 01/06/19 03/09/19 Unknown Rx Insulin Glargine [Lantus VIAL] 40 units SUB-Q QHS 30 Days units 01/06/19 03/09/19 Unknown Rx Labetalol [Labetalol 100mg TAB] 100 mg PO BID #60 tablet 01/06/19 03/09/19 Unknown Rx Lispro Insulin [HumaLOG] 0 unit SUB-Q ACHS 30 Days units 01/06/19 03/09/19 Unknown Rx NIFEdipine XL [Procardia Xl] 60 mg PO QDAY #30 tablet 01/06/19 03/09/19 Unknown Rx Nicotine [Habitrol] 14 mg TD QDAY #30 patch 01/06/19 03/09/19 Unknown Rx hydrALAZINE [Apresoline TAB] 100 mg PO TID #90 tab 01/06/19 03/09/19 Unknown Rx traZODone [Desyrel] 50 mg PO QHS #30 tablet 01/06/19 03/09/19 Unknown Rx Active Meds: Active Medications Acetaminophen (Tylenol) 650 mg PO Q4H PRN PRN Reason: Headache Aspirin (Aspirin) 325 mg PO QDAY [facility] Last Admin: 03/10/19 10:16 Dose: 325 mg Documented by: Hydromorphone HCl (Dilaudid) 0.5 mg IV Q4H PRN PRN Reason: Pain, Chest/Cardiac Heparin Sodium/Sodium Chloride (Heparin/ 0.45% Nacl-25,000 Unit/500 Ml) 25,000 unit in 500 mls @ 20 mls/hr IV TITRATE [facility]; Protocol Last Titration: 03/10/19 06:40 Dose: 1,100 units/hr, 22 mls/hr Documented by: Nitroglycerin (Nitro-Bid 2%) 0.5 inch TP QIDNTG [facility]; Protocol Last Admin: 03/10/19 10:15 Dose: Not Given Documented by: Nitroglycerin (Nitrostat) 0.4 mg SL .Q5MIN PRN PRN Reason: Chest Pain Ondansetron HCl (Zofran) 4 mg IV Q8H PRN PRN Reason: Nausea And Vomiting Physical Examination Vital Signs Temp Pulse Resp BP Pulse Ox 98.5 F 70 16 107/74 98 03/09/19 17:11 03/09/19 17:11 03/09/19 17:11 03/09/19 17:11 03/09/19 17:11 General appearance: no acute distress HEENT: Positive: PERRL Cardiac: Positive: Reg Rate and Rhythm Lungs: Positive: Decreased Breath Sounds Neuro: Positive: Weakness Results 03/09/19 17:17 03/09/19 17:17 Cardiac Enzymes 03/09/19 03/09/19 03/10/19 Range/Units 17:17 20:03 00:32 AST 15 (5-40) units/L CK-MB (CK-2) 4.7 H 4.6 H (0.0-4.0) ng/mL 03/10/19 Range/Units 04:09 AST (5-40) units/L CK-MB (CK-2) 3.8 (0.0-4.0) ng/mL Coagulation 03/09/19 Range/Units 17:17 PT 13.2 (12.2-14.9) Sec. INR 1.03 (0.87-1.13) APTT 25.8 (24.2-36.6) Sec. Lipids 03/09/19 Range/Units 17:17 Triglycerides 213 H (2-149) mg/dL Cholesterol 214 H (50-199) mg/dL HDL Cholesterol 36 L (40-59) mg/dL Cholesterol/HDL Ratio 5.94 % CBC 03/09/19 Range/Units 17:17 WBC 7.9 (4.5-11.0) K/mm3 RBC 5.20 H (3.65-5.03) M/mm3 Hgb 15.6 H (10.1-14.3) gm/dl Hct 46.9 H (30.3-42.9) % Plt Count 393 (140-440) K/mm3 Lymph # 3.3 (1.2-5.4) K/mm3 [place] # 0.5 (0.0-0.8) K/mm3 Eos # 0.2 (0.0-0.4) K/mm3 Baso # 0.1 (0.0-0.1) K/mm3 Comprehensive Metabolic Panel 03/09/19 Range/Units 17:17 Sodium 142 (137-145) mmol/L Potassium 4.1 (3.6-5.0) mmol/L Chloride 103.3 (98-107) mmol/L Carbon Dioxide 25 (22-30) mmol/L BUN 22 H (7-17) mg/dL Creatinine 1.3 H (0.7-1.2) mg/dL Glucose 194 H (65-100) mg/dL Calcium 9.9 (8.4-10.2) mg/dL AST 15 (5-40) units/L ALT 18 (7-56) units/L Alkaline Phosphatase 155 H (35-129) units/L Total Protein 7.9 (6.3-8.2) g/dL Albumin 3.9 (3.9-5) g/dL Assessment and Plan Syncope Hypertension Diabetes Prior CVA on plavix and aspirin as an outpatient Normal LVEF by echo 11/2018.
[2019-03-10] MEDS: DILAUDID IV PRN ×2 (12:53→21:27)
[2019-03-10] MEDS: HEPARIN/ 0.45% NACL-25,000 UNIT/500 ML 25,000 UNIT/500 ML BAG IV SCH (12:54)
--- NOTE | 2019-03-10 13:32 | Progress Note ---
Subjective Date of service: 03/10/19 Interval history: certainly agree there are several ischemic infarcts in the right hemisphere the anterior cerebral in farct medial frontal lobe more likerly cause of the leg weakness advise check the MRI andf EEG she could have experienced seizure vertigo from this infarct is very common explained dx to the patient Objective - Vital Sign Vital Signs - 12hr 03/10/19 03/10/19 03/10/19 01:45 02:00 02:15 Pulse Rate 54 L 53 L 55 L Respiratory 11 L 14 18 Rate Blood Pressure 120/67 123/66 112/65 Blood Pressure [Right] O2 Sat by Pulse 94 97 95 Oximetry 03/10/19 03/10/19 03/10/19 02:30 02:45 03:00 Pulse Rate 55 L 55 L 56 L Respiratory 12 14 15 Rate Blood Pressure 112/60 107/63 100/54 Blood Pressure [Right] O2 Sat by Pulse 97 96 95 Oximetry 03/10/19 03/10/19 03/10/19 03:15 03:30 03:45 Pulse Rate 56 L 56 L 59 L Respiratory 15 11 L 16 Rate Blood Pressure 113/56 101/57 99/53 Blood Pressure [Right] O2 Sat by Pulse 93 97 98 Oximetry 03/10/19 03/10/19 03/10/19 04:00 04:15 04:30 Pulse Rate 57 L 55 L Respiratory 13 16 Rate Blood Pressure 101/52 112/60 99/53 Blood Pressure [Right] O2 Sat by Pulse 96 94 93 Oximetry 03/10/19 03/10/19 03/10/19 04:45 05:00 05:15 Pulse Rate 55 L 54 L 53 L Respiratory 13 15 16 Rate Blood Pressure 103/53 99/57 109/57 Blood Pressure [Right] O2 Sat by Pulse 96 94 95 Oximetry 03/10/19 03/10/19 03/10/19 05:30 05:45 06:00 Pulse Rate 58 L 52 L 52 L Respiratory 15 12 12 Rate Blood Pressure 92/51 93/45 102/55 Blood Pressure [Right] O2 Sat by Pulse 95 98 95 Oximetry 03/10/19 03/10/19 03/10/19 06:15 06:30 06:45 Pulse Rate 56 L 48 L 52 L Respiratory 9 L 15 13 Rate Blood Pressure 104/56 118/59 103/54 Blood Pressure [Right] O2 Sat by Pulse 100 95 94 Oximetry 03/10/19 03/10/19 08:16 09:04 Pulse Rate 58 L 62 Respiratory 15 18 Rate Blood Pressure Blood Pressure 104/58 106/73 [Right] O2 Sat by Pulse 98 99 Oximetry - Laboratory Findings CBC and BMP: 03/09/19 17:17 03/09/19 17:17 Abnormal Lab Findings: Abnormal Labs 03/09/19 03/09/19 03/09/19 17:17 17:17 17:17 RBC 5.20 H Hgb 15.6 H Hct 46.9 H Lymph % (Auto) 42.1 H D-Dimer 531.5 H Heparin Anti-Xa Level BUN 22 H Creatinine 1.3 H Glucose 194 H Alkaline Phosphatase 155 H CK-MB (CK-2) CK-MB (CK-2) Rel Index Troponin T 0.036 H Triglycerides 213 H Cholesterol 214 H LDL Cholesterol Direct 146 H HDL Cholesterol 36 L 03/09/19 03/10/19 03/10/19 20:03 00:32 04:09 RBC Hgb Hct Lymph % (Auto) D-Dimer Heparin Anti-Xa Level BUN Creatinine Glucose Alkaline Phosphatase CK-MB (CK-2) 4.7 H 4.6 H CK-MB (CK-2) Rel Index 9.5 H 9.3 H 8.0 H Troponin T 0.038 H Triglycerides Cholesterol LDL Cholesterol Direct HDL Cholesterol 03/10/19 03/10/19 04:09 12:12 RBC Hgb Hct Lymph % (Auto) D-Dimer Heparin Anti-Xa Level 0.17 L 0.18 L BUN Creatinine Glucose Alkaline Phosphatase CK-MB (CK-2) CK-MB (CK-2) Rel Index Troponin T Triglycerides Cholesterol LDL Cholesterol Direct HDL Cholesterol
[2019-03-10] MEDS ORDERED: D50W (25GM) Syringe IV PRN (14:36)
--- NOTE | 2019-03-10 14:38 | Progress Note ---
Assessment and Plan Assessment and plan: NSTEMI VS Type 2 [place] Recurrent syncope- Obtain Neuro consult. Input noted, EEG, MRI Bilateral Leg weakness- PT eval History of multiple CVAs Acute kidney injury secondary to vasomotor nephropathy DM type 2 With Hyperglycemia Morbid Obesity Plan Continue supportive care Resume home meds Neurology consulted and MRI ordered along with EEG. Evaluation for vertigo ongoing cardiology input noted, possible predischarge lexiscan or outpatient DVT/GI prophy Weightloss counselling provided in detail. Patient verbalized understanding. Plan discussed with the patient in detail History Interval history: Patient seen and examined Today Complains of Generalized Body Pain with No Specific Area of Focus. Hospitalist Physical - Physical exam Narrative exam: VITAL SIGNS: Reviewed. GENERAL: The patient appeared well nourished and normally developed, Vital signs as documented. HEAD: No signs of head trauma. EYES: Pupils are equal. Extraocular motions intact. EARS: Hearing grossly intact. MOUTH: Oropharynx is normal. NECK: No adenopathy, no JVD. CHEST: Chest with clear breath sounds bilaterally. No wheezes, rales, or rhonchi. CARDIAC: Regular rate and rhythm. S1 and S2, without murmurs, gallops, or rubs. VASCULAR: No Edema. Peripheral pulses normal and equal in all extremities. ABDOMEN: Soft, non tender and non distended. No rebound or guarding, and no masses palpated. Bowel Sounds normal. MUSCULOSKELETAL: Good range of motion of all major joints. Extremities without clubbing, cyanosis or edema. NEUROLOGIC EXAM: Alert and oriented x 3 No focal sensory or strength deficits. Speech normal. Follows commands. PSYCHIATRIC: Mood normal. SKIN: No rash or lesions. - Constitutional Vitals: Temp Pulse Resp BP Pulse Ox 98.5 F 62 18 106/73 99 03/09/19 17:11 03/10/19 09:04 03/10/19 09:04 03/10/19 09:04 03/10/19 09:04 General appearance: Present: no acute distress Results - Labs CBC & Chem 7: 03/11/19 04:57 03/09/19 17:17 Labs: Laboratory Last Values WBC 7.9 K/mm3 (4.5-11.0) 03/09/19 17:17 RBC 5.20 M/mm3 (3.65-5.03) H 03/09/19 17:17 Hgb 15.6 gm/dl (10.1-14.3) H 03/09/19 17:17 Hct 46.9 % (30.3-42.9) H 03/09/19 17:17 MCV 90 fl (79-97) 03/09/19 17:17 MCH 30 pg (28-32) 03/09/19 17:17 MCHC 33 % (30-34) 03/09/19 17:17 RDW 13.3 % (13.2-15.2) 03/09/19 17:17 Plt Count 393 K/mm3 (140-440) 03/09/19 17:17 Lymph % (Auto) 42.1 % (13.4-35.0) H 03/09/19 17:17 [place] % (Auto) 5.9 % (0.0-7.3) 03/09/19 17:17 Eos % (Auto) 3.0 % (0.0-4.3) 03/09/19 17:17 Baso % (Auto) 0.8 % (0.0-1.8) 03/09/19 17:17 Lymph # 3.3 K/mm3 (1.2-5.4) 03/09/19 17:17 [place] # 0.5 K/mm3 (0.0-0.8) 03/09/19 17:17 Eos # 0.2 K/mm3 (0.0-0.4) 03/09/19 17:17 Baso # 0.1 K/mm3 (0.0-0.1) 03/09/19 17:17 Seg Neutrophils % 48.2 % (40.0-70.0) 03/09/19 17:17 Seg Neutrophils # 3.8 K/mm3 (1.8-7.7) 03/09/19 17:17 PT 13.2 Sec. (12.2-14.9) 03/09/19 17:17 INR 1.03 (0.87-1.13) 03/09/19 17:17 APTT 25.8 Sec. (24.2-36.6) 03/09/19 17:17 531.5 ng/mlDDU (0-234) H 03/09/19 17:17 Heparin Anti-Xa Level 0.18 U.I./ml (0.3-0.7) L 03/10/19 12:12 Sodium 142 mmol/L (137-145) 03/09/19 17:17 Potassium 4.1 mmol/L (3.6-5.0) 03/09/19 17:17 Chloride 103.3 mmol/L (98-107) 03/09/19 17:17 Carbon Dioxide 25 mmol/L (22-30) 03/09/19 17:17 18 mmol/L 03/09/19 17:17 BUN 22 mg/dL (7-17) H 03/09/19 17:17 1.3 mg/dL (0.7-1.2) H 03/09/19 17:17 Estimated GFR 52 ml/min 03/09/19 17:17 17 % 03/09/19 17:17 Glucose 194 mg/dL (65-100) H 03/09/19 17:17 Calcium 9.9 mg/dL (8.4-10.2) 03/09/19 17:17 Magnesium 1.70 mg/dL (1.7-2.3) 03/10/19 09:53 0.30 mg/dL (0.1-1.2) 03/09/19 17:17 AST 15 units/L (5-40) 03/09/19 17:17 ALT 18 units/L (7-56) 03/09/19 17:17 155 units/L (35-129) H 03/09/19 17:17 47 units/L (30-135) 03/10/19 04:09 CK-MB (CK-2) 3.8 ng/mL (0.0-4.0) 03/10/19 04:09 CK-MB (CK-2) Rel Index 8.0 (0-4) H 03/10/19 04:09 0.027 ng/mL (0.00-0.029) 03/10/19 04:09 7.9 g/dL (6.3-8.2) 03/09/19 17:17 3.9 g/dL (3.9-5) 03/09/19 17:17 1.0 % 03/09/19 17:17 Triglycerides 213 mg/dL (2-149) H 03/09/19 17:17 Cholesterol 214 mg/dL (50-199) H 03/09/19 17:17 146 mg/dL (50-130) H 03/09/19 17:17 36 mg/dL (40-59) L 03/09/19 17:17 5.94 % 03/09/19 17:17 TSH 0.582 mlU/mL (0.270-4.200) 03/10/19 09:53 Free T4 1.05 ng/dL (0.76-1.46) 03/10/19 09:53 Active Medications - Current Medications Current Medications: Generic Name Dose Route Start Last Admin Trade Name Freq PRN Reason Stop Dose Admin Acetaminophen 650 mg 03/09/19 22:15 Tylenol PO Q4H PRN Headache Aspirin 325 mg 03/10/19 10:00 03/10/19 10:16 Aspirin PO 325 mg QDAY [facility] Administration Atorvastatin Calcium 40 mg 03/10/19 22:00 Lipitor PO QHS [facility] Clopidogrel Bisulfate 75 mg 03/10/19 14:34 Plavix PO QDAY [facility] Dextrose 50 ml 03/10/19 14:36 D50w (25gm) Syringe IV PRN PRN Hypoglycemia Famotidine 20 mg 03/10/19 22:00 Pepcid PO BID [facility] Fluoxetine HCl 40 mg 03/10/19 22:00 Prozac PO BID [facility] Hydralazine HCl 100 mg 03/10/19 20:00 Apresoline PO TID [facility] Hydromorphone HCl 0.5 mg 03/09/19 22:17 03/10/19 12:53 Dilaudid IV 0.5 mg Q4H PRN Administration Pain, Chest/Cardiac Heparin Sodium/Sodium Chloride 25,000 unit in 500 mls @ 20 mls/hr 03/09/19 22:00 03/10/19 12:54 Heparin/ 0.45% Nacl-25,000 Unit/500 Ml IV 1,100 units/hr TITRATE [facility] 22 mls/hr Administration Protocol 1,000 UNITS/HR Insulin Glargine 30 units 03/10/19 22:00 Lantus SUB-Q QHS [facility] Insulin Human Lispro 0 unit 03/10/19 16:30 Humalog SUB-Q ACHS [facility] Protocol Lorazepam 2 mg 03/10/19 14:45 Ativan IV [employer]IOR [employer] NR Nicotine 14 mg 03/11/19 10:00 Habitrol TD QDAY [facility] Nitroglycerin 0.5 inch 03/10/19 06:00 03/10/19 10:15 Nitro-Bid 2% TP Not Given QIDNTG [facility] Protocol Nitroglycerin 0.4 mg 03/09/19 22:14 Nitrostat SL .Q5MIN PRN Chest Pain Ondansetron HCl 4 mg 03/09/19 22:15 Zofran IV Q8H PRN Nausea And Vomiting Trazodone HCl 50 mg 03/10/19 22:00 Desyrel PO QHS [facility]
[2019-03-10] MEDS ORDERED: ATIVAN IV NR (14:45)
[2019-03-10] MEDS: PLAVIX PO SCH (15:57)
[2019-03-10] MEDS: HABITROL TD SCH (15:58)
[2019-03-10] MEDS: HumaLOG SUB-Q SCH ×2 (17:59→22:24)
[2019-03-10] MEDS: APRESOLINE PO SCH (21:15)
[2019-03-10] MEDS: LANTUS SUB-Q SCH (21:25)
[2019-03-10] MEDS: PROzac PO SCH (21:26)
[2019-03-10] MEDS: DESYREL PO SCH (21:26)
[2019-03-10] MEDS: PEPCID PO SCH (21:27)
[2019-03-10] MEDS ORDERED: LANTUS SUB-Q SCH (22:00)
[2019-03-11] MEDS: DILAUDID IV PRN ×2 (05:24→21:31)
[2019-03-11] MEDS: NITRO-BID 2% TP SCH ×4 (05:26→18:19)
[2019-03-11 06:02] LABS: Hematocrit 38.1 % (30.3-42.9); Hemoglobin 12.8 gm/dl (10.1-14.3)
[2019-03-11] MEDS: APRESOLINE PO SCH ×3 (08:40→21:29)
[2019-03-11] MEDS: HumaLOG SUB-Q SCH ×4 (08:45→21:32)
--- NOTE | 2019-03-11 09:01 | Progress Note ---
Assessment and Plan Syncope Hypertension Diabetes Prior CVA on plavix and aspirin as an outpatient Normal LVEF by echo 11/2018. Neurology evaluation and workup is in progress. From a cardiac standpoint, will recommend an outpatient Lexiscan thallium stress test. Subjective Date of service: 03/11/19 Interval history: Patient is resting in bed comfortably. She has no chest pain or shortness of breath. Objective Vital Signs Temp Pulse Pulse Resp BP BP BP 03/11/19 08:29 97.9 F 52 L 18 147/92 03/11/19 04:18 98.0 F 48 L 20 114/56 03/10/19 23:41 97.0 F L 45 L 18 141/71 03/10/19 22:00 51 L 18 03/10/19 21:54 03/10/19 19:48 98.0 F 50 L 18 123/76 03/10/19 18:10 50 L 130/72 03/10/19 17:12 51 L 123/77 03/10/19 16:18 98.4 F 51 L 14 129/69 03/10/19 15:56 62 114/75 03/10/19 15:50 62 18 114/75 03/10/19 15:44 18 03/10/19 11:02 98.2 F 49 L 12 94/48 03/10/19 10:21 61 13 111/69 03/10/19 10:11 58 L 14 115/72 03/10/19 10:00 56 L 15 115/72 03/10/19 09:51 60 17 111/69 03/10/19 09:41 58 L 16 117/78 03/10/19 09:31 52 L 11 L 117/78 03/10/19 09:29 65 106/73 03/10/19 09:10 59 L 14 106/73 03/10/19 09:04 62 18 BP Pulse Ox 03/11/19 08:29 95 03/11/19 04:18 93 03/10/19 23:41 94 03/10/19 22:00 03/10/19 21:54 96 03/10/19 19:48 98 03/10/19 18:10 03/10/19 17:12 03/10/19 16:18 96 03/10/19 15:56 03/10/19 15:50 96 03/10/19 15:44 07/11/19 11:02 95 03/10/19 10:21 98 03/10/19 10:11 99 03/10/19 10:00 95 03/10/19 09:51 98 03/10/19 09:41 98 03/10/19 09:31 97 03/10/19 09:29 03/10/19 09:10 99 03/10/19 09:04 106/73 99 - Physical Examination General: No Apparent Distress HEENT: Positive: PERRL Cardiac: Positive: Reg Rate and Rhythm, Bradycardia Lungs: Positive: Decreased Breath Sounds Neuro: Positive: Weakness - Labs and Meds CBC 03/11/19 Range/Units 04:57 Hgb 12.8 (10.1-14.3) gm/dl Hct 38.1 D (30.3-42.9) % Plt Count 384 (140-440) K/mm3
--- NOTE | 2019-03-11 10:38 | Magnetic Resonance Report ---
MRI BRAIN WITHOUT CONTRAST INDICATION / CLINICAL INFORMATION: Seizure, unsteady gait, hypertension.. TECHNIQUE: Multiplanar, multisequence MR images of the brain were obtained. COMPARISON: The previous exams are not currently available for direct comparison. FINDINGS: BRAIN / INTRACRANIAL CONTENTS: There are multiple old small infarct centered within the right cerebra l hemisphere. There is component of decreased signal within the posterior right occipital lobe on the susceptibility weighted imaging compatible with chronic blood products. There is otherwise moderate cerebral and pontine white matter disease most consistent with microvascular angiopathy. The diffusio n imaging reveals no evidence of acute infarction. There is mild cerebral atrophy. The ventricular system is correspondingly appropriate in size and con figuration. The chronic ischemic changes appear to involve the genu of the right corpus callosum. No extra-axial fluid collections are identified. CRANIOCERVICAL JUNCTION: No significant abnormality. VASCULAR FLOW-VOIDS: There appears be relative small caliber of the distal right ICA which may reflec t a developmental variant. Signal voids are seen within the left ICA and vertebrobasilar system. ORBITS: No significant abnormality of visualized orbits. SINUSES / MASTOIDS: Small mucosal thickening along the inferior right maxillary sinus. The mastoid ai r cells are clear. ADDITIONAL FINDINGS: None. IMPRESSION: 1. There are multiple old infarcts with microvascular angiopathy as detailed above, advanced for the patient's age.. There is no evidence of acute infarction. Signer Name: Kaden Rendon MD Signed: 03/11/2019 10:34 AM Workstation Name: [id number]
[2019-03-11] MEDS: PROzac PO SCH ×2 (11:25→21:29)
[2019-03-11] MEDS: PLAVIX PO SCH (11:28)
[2019-03-11] MEDS: ASPIRIN PO SCH (11:28)
[2019-03-11] MEDS: HABITROL TD SCH (11:29)
[2019-03-11] MEDS: PEPCID PO SCH ×2 (11:29→21:28)
--- NOTE | 2019-03-11 13:29 | Progress Note ---
Subjective Date of service: 03/11/19 Interval history: all infaRCTS SEEN ON THE mri ARE OLD NO RECENT NEW STROKE REVIEWED OVER THE mri AND SUSPECT THE PEISODE WAS tia NOT NEW STROKE Objective - Vital Sign Vital Signs - 12hr 03/11/19 03/11/19 03/11/19 04:18 08:29 11:00 Temperature 98.0 F 97.9 F 97.9 F Pulse Rate 48 L 52 L 53 L Respiratory 20 18 18 Rate Blood Pressure 114/56 147/92 146/75 O2 Sat by Pulse 93 95 93 Oximetry 03/11/19 11:28 Temperature Pulse Rate 53 L Respiratory Rate Blood Pressure 146/75 O2 Sat by Pulse Oximetry - Laboratory Findings CBC and BMP: 03/11/19 04:57 03/09/19 17:17 Abnormal Lab Findings: Abnormal Labs 03/09/19 03/09/19 03/09/19 17:17 17:17 17:17 RBC 5.20 H Hgb 15.6 H Hct 46.9 H Lymph % (Auto) 42.1 H D-Dimer 531.5 H Heparin Anti-Xa Level BUN 22 H Creatinine 1.3 H Glucose 194 H POC Glucose Alkaline Phosphatase 155 H CK-MB (CK-2) CK-MB (CK-2) Rel Index Troponin T 0.036 H Triglycerides 213 H Cholesterol 214 H LDL Cholesterol Direct 146 H HDL Cholesterol 36 L 03/09/19 03/10/19 03/10/19 20:03 00:32 04:09 RBC Hgb Hct Lymph % (Auto) D-Dimer Heparin Anti-Xa Level BUN Creatinine Glucose POC Glucose Alkaline Phosphatase CK-MB (CK-2) 4.7 H 4.6 H CK-MB (CK-2) Rel Index 9.5 H 9.3 H 8.0 H Troponin T 0.038 H Triglycerides Cholesterol LDL Cholesterol Direct HDL Cholesterol 03/10/19 03/10/19 03/10/19 04:09 12:12 16:59 RBC Hgb Hct Lymph % (Auto) D-Dimer Heparin Anti-Xa Level 0.17 L 0.18 L BUN Creatinine Glucose POC Glucose 201 H Alkaline Phosphatase CK-MB (CK-2) CK-MB (CK-2) Rel Index Troponin T Triglycerides Cholesterol LDL Cholesterol Direct HDL Cholesterol 03/10/19 03/11/19 03/11/19 21:10 07:39 11:04 RBC Hgb Hct Lymph % (Auto) D-Dimer Heparin Anti-Xa Level BUN Creatinine Glucose POC Glucose 160 H 184 H 213 H Alkaline Phosphatase CK-MB (CK-2) CK-MB (CK-2) Rel Index Troponin T Triglycerides Cholesterol LDL Cholesterol Direct HDL Cholesterol
--- NOTE | 2019-03-11 14:26 | Progress Note ---
Assessment and Plan Assessment and plan: Type 2 [place] Recurrent syncope- Neuro input noted, EEG, MRI Bilateral Leg weakness- PT eval History of multiple CVAs Acute kidney injury secondary to vasomotor nephropathy DM type 2 With Hyperglycemia Morbid Obesity Plan Continue supportive care While patient ambulates unassisted to the bath room, she becomes unsteady when someone is nearby She is also noted to have mulitiple skin lesion on the back-wound care consulted There appears to be some psychosocial component, nevertheless will add Meclizin for veritgo Discontinue heparin drip No new stroke on MRI Outpatient [facility] scan Anticipate discharge in am DVT/GI prophy Weightloss counselling provided in detail. Patient verbalized understanding. Plan discussed with the patient in detail History Interval history: Patient seen and examined Today Complains of Generalized Body Pain with No Specific Area of Focus. Hospitalist Physical - Physical exam Narrative exam: VITAL SIGNS: Reviewed. GENERAL: The patient appeared well nourished and normally developed, Vital signs as documented. HEAD: No signs of head trauma. EYES: Pupils are equal. Extraocular motions intact. EARS: Hearing grossly intact. MOUTH: Oropharynx is normal. NECK: No adenopathy, no JVD. CHEST: Chest with clear breath sounds bilaterally. No wheezes, rales, or rhonchi. CARDIAC: Regular rate and rhythm. S1 and S2, without murmurs, gallops, or rubs. VASCULAR: No Edema. Peripheral pulses normal and equal in all extremities. ABDOMEN: Soft, non tender and non distended. No rebound or guarding, and no masses palpated. Bowel Sounds normal. MUSCULOSKELETAL: Good range of motion of all major joints. Extremities without clubbing, cyanosis or edema. NEUROLOGIC EXAM: Alert and oriented x 3 No focal sensory or strength deficits. Speech normal. Follows commands. PSYCHIATRIC: Mood normal. SKIN: SKIN EXCOURIATION IN THE BACK - Constitutional Vitals: Temp Pulse Resp BP Pulse Ox 97.9 F 53 L 18 146/75 93 03/11/19 11:00 03/11/19 11:28 03/11/19 11:00 03/11/19 11:28 03/11/19 11:00 General appearance: Present: no acute distress Results - Labs CBC & Chem 7: 03/11/19 04:57 03/09/19 17:17 Labs: Laboratory Last Values WBC 7.9 K/mm3 (4.5-11.0) 07/10/19 17:17 RBC 5.20 M/mm3 (3.65-5.03) H 03/09/19 17:17 Hgb 12.8 gm/dl (10.1-14.3) 03/11/19 04:57 Hct 38.1 % (30.3-42.9) D 03/11/19 04:57 MCV 90 fl (79-97) 03/09/19 17:17 MCH 30 pg (28-32) 03/09/19 17:17 MCHC 33 % (30-34) 03/09/19 17:17 RDW 13.3 % (13.2-15.2) 03/09/19 17:17 Plt Count 384 K/mm3 (140-440) 03/11/19 04:57 Lymph % (Auto) 42.1 % (13.4-35.0) H 03/09/19 17:17 [place] % (Auto) 5.9 % (0.0-7.3) 03/09/19 17:17 Eos % (Auto) 3.0 % (0.0-4.3) 03/09/19 17:17 Baso % (Auto) 0.8 % (0.0-1.8) 03/09/19 17:17 Lymph # 3.3 K/mm3 (1.2-5.4) 03/09/19 17:17 [place] # 0.5 K/mm3 (0.0-0.8) 03/09/19 17:17 Eos # 0.2 K/mm3 (0.0-0.4) 03/09/19 17:17 Baso # 0.1 K/mm3 (0.0-0.1) 03/09/19 17:17 Seg Neutrophils % 48.2 % (40.0-70.0) 03/09/19 17:17 Seg Neutrophils # 3.8 K/mm3 (1.8-7.7) 03/09/19 17:17 PT 13.2 Sec. (12.2-14.9) 03/09/19 17:17 INR 1.03 (0.87-1.13) 03/09/19 17:17 APTT 25.8 Sec. (24.2-36.6) 03/09/19 17:17 531.5 ng/mlDDU (0-234) H 03/09/19 17:17 Heparin Anti-Xa Level 0.53 U.I./ml (0.3-0.7) 03/11/19 05:00 Sodium 142 mmol/L (137-145) 03/09/19 17:17 Potassium 4.1 mmol/L (3.6-5.0) 03/09/19 17:17 Chloride 103.3 mmol/L (98-107) 03/09/19 17:17 Carbon Dioxide 25 mmol/L (22-30) 03/09/19 17:17 18 mmol/L 03/09/19 17:17 BUN 22 mg/dL (7-17) H 03/09/19 17:17 1.3 mg/dL (0.7-1.2) H 03/09/19 17:17 Estimated GFR 52 ml/min 03/09/19 17:17 17 % 03/09/19 17:17 Glucose 194 mg/dL (65-100) H 03/09/19 17:17 POC Glucose 213 (70-105) H 03/11/19 11:04 Calcium 9.9 mg/dL (8.4-10.2) 03/09/19 17:17 Magnesium 1.70 mg/dL (1.7-2.3) 03/10/19 09:53 0.30 mg/dL (0.1-1.2) 03/09/19 17:17 AST 15 units/L (5-40) 03/09/19 17:17 ALT 18 units/L (7-56) 03/09/19 17:17 155 units/L (35-129) H 03/09/19 17:17 47 units/L (30-135) 03/10/19 04:09 CK-MB (CK-2) 3.8 ng/mL (0.0-4.0) 03/10/19 04:09 CK-MB (CK-2) Rel Index 8.0 (0-4) H 03/10/19 04:09 0.027 ng/mL (0.00-0.029) 03/10/19 04:09 7.9 g/dL (6.3-8.2) 03/09/19 17:17 3.9 g/dL (3.9-5) 03/09/19 17:17 1.0 % 03/09/19 17:17 Triglycerides 213 mg/dL (2-149) H 03/09/19 17:17 Cholesterol 214 mg/dL (50-199) H 03/09/19 17:17 146 mg/dL (50-130) H 03/09/19 17:17 36 mg/dL (40-59) L 03/09/19 17:17 5.94 % 03/09/19 17:17 TSH 0.582 mlU/mL (0.270-4.200) 03/10/19 09:53 Free T4 1.05 ng/dL (0.76-1.46) 03/10/19 09:53 Active Medications - Current Medications Current Medications: Generic Name Dose Route Start Last Admin Trade Name Freq PRN Reason Stop Dose Admin Acetaminophen 650 mg 03/09/19 22:15 Tylenol PO Q4H PRN Headache Aspirin 325 mg 03/10/19 10:00 03/11/19 11:28 Aspirin PO 325 mg QDAY [facility] Administration Atorvastatin Calcium 40 mg 03/10/19 22:00 03/10/19 21:26 Lipitor PO 40 mg QHS [facility] Administration Clopidogrel Bisulfate 75 mg 03/10/19 15:34 03/11/19 11:28 Plavix PO 75 mg QDAY [facility] Administration Dextrose 50 ml 03/10/19 14:36 D50w (25gm) Syringe IV PRN PRN Hypoglycemia Famotidine 20 mg 03/10/19 22:00 03/11/19 11:29 Pepcid PO 20 mg BID [facility] Administration Fluoxetine HCl 40 mg 03/10/19 22:00 03/11/19 11:25 Prozac PO 40 mg BID [facility] Administration Hydralazine HCl 100 mg 03/10/19 20:00 03/11/19 08:40 Apresoline PO Not Given TID [facility] Hydromorphone HCl 0.5 mg 03/09/19 22:17 03/11/19 05:24 Dilaudid IV 0.5 mg Q4H PRN Administration Pain, Chest/Cardiac Insulin Glargine 30 units 03/10/19 22:00 03/10/19 21:25 Lantus SUB-Q 30 units QHS [facility] Administration Insulin Human Lispro 0 unit 03/10/19 16:30 03/11/19 12:54 Humalog SUB-Q 2 unit ACHS [facility] Administration Protocol Lorazepam 2 mg 03/10/19 14:45 03/11/19 08:36 Ativan IV 03/11/19 14:44 2 mg [employer]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
[2019-03-11] MEDS: DESYREL PO SCH (21:29)
[2019-03-11] MEDS: LANTUS SUB-Q SCH (21:31)
[2019-03-11] MEDS ORDERED: BENADRYL PO PRN (22:54)
[2019-03-11] MEDS ORDERED: BENADRYL IV ONE (23:00)
[2019-03-11] MEDS ORDERED: SOLU-Medrol IV ONE (23:15)
[2019-03-12] MEDS ORDERED: APRESOLINE IV PRN (04:48)
[2019-03-12] MEDS: NITRO-BID 2% TP SCH ×3 (05:26→15:18)
[2019-03-12] MEDS: DILAUDID IV PRN ×3 (05:27→12:58)
[2019-03-12] MEDS: HumaLOG SUB-Q SCH ×2 (08:40→12:54)
[2019-03-12] MEDS: APRESOLINE PO SCH ×2 (08:41→15:18)
[2019-03-12] MEDS: ASPIRIN PO SCH (10:17)
[2019-03-12] MEDS: PEPCID PO SCH (10:17)
[2019-03-12] MEDS: PROzac PO SCH (10:17)
[2019-03-12] MEDS: HABITROL TD SCH (10:17)
[2019-03-12] MEDS: PLAVIX PO SCH (10:17)
--- NOTE | 2019-03-12 10:41 | Progress Note ---
Assessment and Plan Syncope: Not consistent with cardiac etiology Hypertension Diabetes Prior CVA on plavix and aspirin as an outpatient Normal LVEF by echo 11/2018. Neurology evaluation and workup is in progress. From a cardiac standpoint, will recommend an outpatient Lexiscan thallium stress test. Subjective Date of service: 03/12/19 Interval history: No acute events Objective Vital Signs Temp Pulse Pulse Resp BP BP Pulse Ox 03/12/19 10:17 85 155/80 03/12/19 08:17 98.0 F 85 18 155/80 100 03/12/19 03:54 98.3 F 63 20 178/82 95 03/12/19 00:00 57 L 176/82 03/11/19 22:45 98.1 F 58 L 19 151/93 95 03/11/19 22:00 57 L 20 03/11/19 21:43 98 03/11/19 19:41 98.3 F 65 20 170/93 100 03/11/19 18:32 72 150/74 03/11/19 18:19 61 145/79 03/11/19 17:00 65 145/79 03/11/19 16:36 98.0 F 62 18 114/59 98 03/11/19 15:00 62 03/11/19 14:26 58 L 137/70 03/11/19 13:30 55 L 135/75 03/11/19 11:28 53 L 146/75 03/11/19 11:00 97.9 F 53 L 18 146/75 93 - Physical Examination General: No Apparent Distress HEENT: Positive: PERRL Cardiac: Positive: Reg Rate and Rhythm Lungs: Positive: clear to auscultation Neuro: Positive: Weakness Abdomen: Positive: Soft, Active Bowel Sounds Extremities: Absent: edema
[2019-03-12 11:48] VITALS: BP 143/86
--- NOTE | 2019-03-12 12:49 | Discharge Summary ---
Providers - Providers Date of Admission: 03/09/19 22:08 Attending physician: STARR IZAGUIRRE MD 03/09/19 22:11 Consult to Physician [CONS] Urgent Comment: Consulting Provider: TERI PAULSON Physician Instructions: Reason For Exam: NSTEMI,SYNCOPE AND SYMPTOMATIC BRADYCARDIA 03/10/19 12:09 Consult to Physician [CONS] Routine Comment: Consulting Provider: REMI YOUNG Physician Instructions: Reason For Exam: syncope x6 03/11/19 12:54 Consult to Wound/ET Nurse [CONS] Routine Reason For Exam: wound eval Physical Therapy Evaluation and Treat [CONS] Routine Comment: Reason For Exam: ataxia 03/11/19 13:23 Occupational Therapy Evaluate and Treat [CONS] Routine Comment: Reason For Exam: SYNCOPE AND COLLAPSE Primary care physician: CARLOS JULIO Hospitalization Reason for admission: chest pain Condition: Stable Hospital course: 49-year-old female that presented to emergency room with complaints of syncopal episode 6 today. Patient states she is also having pain all over because she ran out of her Percocet and she has a history of fibromyalgia and rheumatoid arthritis. Patient denies chest pain and shortness of breath. Patient denies fever and chills. Patient states that she is passing out while sitting. Patient denies hitting her head. Patient states her symptoms prior to passing out was lightheadedness. Patient states that she's been having intermittent chest pain over the past week but is not having at this time. Patient states the chest pain is better with rest and worse with exertion. Patient states the chest pain is about a 4 out of 10 when she has it. Patient denies shortness of breath. Wound care evaluated the patient INITIAL CONSULT OF THIS RIGHT FLANK AREA. MULTIPLE SCATTERED SCABBED AREAS. NO DRAINAGE. PATIENT STATES SHE BURNED HERSELF WITH THE HEATING PAD. THIS DOES NOT LOOK LIKE A HEATING PAD BURN. COULD BE SOME TYPE OF RESOLVING FUNGAL INFECTION ON SOME TYPE OF INSECT INFESTATION. PATIENT IS HIV POSITIVE. CLEANSED WITH WOUND CLEANSER. FOAM DRESSING APPLIED. Type 2 AR Recurrent syncope- Neuro input noted, EEG, MRI Bilateral Leg weakness- PT eval History of multiple CVAs Acute kidney injury secondary to vasomotor nephropathy DM type 2 With Hyperglycemia Multiple scalb on back, well healed Morbid Obesity Disposition: [id number]/TX-06 HOME UNDER HOME [facility] Time spent for discharge: 35 mins Core Measure Documentation - Palliative Care Palliative Care/ Comfort Measures: Not Applicable - Core Measures Any of the following diagnoses?: none Exam - Physical Exam Narrative exam: VITAL SIGNS: Reviewed. GENERAL: The patient appeared well nourished and normally developed, Vital signs as documented. HEAD: No signs of head trauma. EYES: Pupils are equal. Extraocular motions intact. EARS: Hearing grossly intact. MOUTH: Oropharynx is normal. NECK: No adenopathy, no JVD. CHEST: Chest with clear breath sounds bilaterally. No wheezes, rales, or rhonchi. CARDIAC: Regular rate and rhythm. S1 and S2, without murmurs, gallops, or rubs. VASCULAR: No Edema. Peripheral pulses normal and equal in all extremities. ABDOMEN: Soft, non tender and non distended. No rebound or guarding, and no masses palpated. Bowel Sounds normal. MUSCULOSKELETAL: Good range of motion of all major joints. Extremities without clubbing, cyanosis or edema. NEUROLOGIC EXAM: Alert and oriented x 3 No focal sensory or strength deficits. Speech normal. Follows commands. PSYCHIATRIC: Mood normal. SKIN: SKIN EXCORIATION IN THE BACK - Constitutional Vitals: Temp Pulse Resp BP Pulse Ox 98.0 F 89 18 143/86 97 03/12/19 11:46 03/12/19 11:46 03/12/19 11:46 03/12/19 11:46 03/12/19 11:46 Plan Activity: advance as tolerated, fall precautions Diet: diabetic Special Instructions: record daily BP diary, record blood sugar diary Follow up with: CARLOS JULIO MD [Primary Care Provider] - 3-5 Days HELEN BECKHAM MD [Staff Physician] - 7 Days REMI YOUNG MD [Staff Physician] - 7 Days Prescriptions: diphenhydrAMINE [Benadryl CAP] 25 mg PO Q6H PRN #14 capsule PRN Reason: Itching Fluconazole [Diflucan TAB] 100 mg PO QDAY #7 tablet Permethrin [Home Frsj-Oarlbx-Tvrk Mite] 142 gm MC DAILY 5 Days spray Meclizine HCl [Meclizine CHEW] 25 mg PO BID PRN #30 tab.chew PRN Reason: Vertigo
== END 2019-03-12 15:20 | disposition home health service (06) | DRG 280 ==
LOC: ED 17:03 → CC1 22:08 → IMCU 03-10 00:22 → 4A 03-10 10:05
PROVIDERS: ADMIT Internal Medicine; ATTEND Internal Medicine
DX: I21.A1 Myocardial infarction type 2 (principal); N17.0 Acute kidney failure with tubular necrosis; I69.354 Hemiplegia and hemiparesis following cerebral infarction affecting left non-dominant side; I10 Essential (primary) hypertension; J44.9 Chronic obstructive pulmonary disease, unspecified; K21.9 Gastro-esophageal reflux disease without esophagitis; I25.10 Atherosclerotic heart disease of native coronary artery without angina pectoris; E66.01 Morbid (severe) obesity due to excess calories; K76.0 Fatty (change of) liver, not elsewhere classified; E11.65 Type 2 diabetes mellitus with hyperglycemia; R00.1 Bradycardia, unspecified; Z90.49 Acquired absence of other specified parts of digestive tract; Z88.8 Allergy status to other drugs, medicaments and biological substances; Z88.5 Allergy status to narcotic agent; Z79.4 Long term (current) use of insulin; Z90.710 Acquired absence of both cervix and uterus; Z79.82 Long term (current) use of aspirin; Z68.37 Body mass index [BMI] 37.0-37.9, adult
CPT/HCPCS: 36415; 70450; 70551; 71046; 78582; 80053; 80061; 82550; 82553; 82962; 83735; 84439; 84443; 84484; 85014; 85018; 85025; 85049; 85379; 85520; 85610; 85730; 93005; 93010; 95819; 96374; 99291; G0378; A9270-GY; A9540; A9558; J0360; J1170; J1200; J1644; J1815; J2060; J2920

== ENCOUNTER 2020-09-18 10:45 | Outpatient (CLI) | payer OTHER ==
--- NOTE | 2020-09-18 13:19 | Magnetic Resonance Report ---
MRI LEFT SHOULDER WITHOUT CONTRAST INDICATION / CLINICAL INFORMATION: Left shoulder pain, recent fall, evaluate for rotator cuff tear. COMPARISON: None available. TECHNIQUE: Multisequence, multiplanar images were obtained without contrast. FINDINGS: SUPRASPINATUS: There is mild thickening and increased intrinsic signal in the distal supraspinatus te ndon at the level of the acromion. No full-thickness tear is appreciated. This is most consistent wit h tendinosis although a less than 50% partial tear along the articular surface could be considered. INFRASPINATUS: No significant abnormality. SUBSCAPULARIS: No significant abnormality. TERES MINOR: No significant abnormality. BICEPS TENDON, LONG HEAD: No significant abnormality. GLENOID LABRUM: There is mild irregularity and fraying of the posterior labrum concerning for a poste rior labral tear. ARTICULAR CARTILAGE: No significant abnormality. JOINT SPACE AND CAPSULE: Trace joint effusion. No bursal fluid is appreciated. ACROMION and A.C. JOINT: Mild osteoarthritic changes are identified at the AC joint. No hypertrophic changes. Small ossicle adjacent to the acromion measures 3 mm. SUBACROMIAL/SUBDELTOID SPACE: No significant abnormality. BONES: No significant bone marrow edema. No fracture. No osseous lesion. SUBCUTANEOUS SOFT TISSUES: No significant abnormality. ADDITIONAL FINDINGS: None. IMPRESSION: Tendinosis of the distal supraspinatus tendon. A less than 50% thickness partial tear along the artic ular surface of the distal supraspinatus tendon could be considered. No full-thickness tear. Mild irregularity of the posterior labrum is identified concerning for a labral tear. Mild osteoarthritic changes at the AC joint. No acute osseous injury. Signer Name: Jimmy Lewis Jr, MD Signed: 09/18/2020 1:15 PM Workstation Name: [id number]
== END 2020-09-18 10:46 | disposition home or self-care (01) ==
LOC: MRI 10:45
PROVIDERS: ATTEND Orthopaedic Surgery
DX: M19.012 Primary osteoarthritis, left shoulder (principal); M67.814 Other specified disorders of tendon, left shoulder

== ENCOUNTER 2020-10-31 09:51 | Emergency (ER) | payer OTHER ==
--- NOTE | 2020-10-31 10:17 | Emergency Department Report ---
Blank Doc - Documentation Documentation: 50-year-old female that presents with left sided chest pain with shoulder pain status post mechanical trip and fall. Also stated has generalized body aches. Patient stated she is noncompliant with her diabetes medication. Blood glucose is high 300s. 1- This initial assessment/diagnostic orders/clinical plan/ treatment(s) is/are subject to change based on pt's health status, clinical progression and re- assessment by fellow clinical providers in the ED. Further treatment and workup at subsequent clinical provers discretion. Patient/guardians urged not to elope from ED as their condition may be serious if not clinically assessed and managed. 2-labs/UA 3-x-rays
[2020-10-31 10:56] LABS: BUN/Creatinine Ratio 18; Blood Urea Nitrogen 20 mg/dL (7-17); Calcium 8.9 mg/dL (8.4-10.2); Hemolysis Index 38
--- NOTE | 2020-10-31 11:16 | Emergency Department Report ---
ED Fall HPI - General Chief Complaint: Fall Stated Complaint: FALL Time Seen by Provider: 10/31/20 10:12 Source: patient, EMS Mode of arrival: Ambulatory - History of Present Illness Initial Comments: 50-year-old female, history of prior CVA with left-sided deficits, presents to ED following fall at home. Patient states she was sitting on her bed, looking around on the floor for her phone, when she fell forward hitting her anterior chest wall and left shoulder on her nightstand. Patient denies any LOC or headache. She is reporting chest wall pain and left shoulder pain. Of note, patient notes POC glucose is elevated, in the 300s. Patient states she has not taken her medication in 2 days because they are located at her son and sister's house. Patient also admits to recent marijuana and cocaine use. States she would like information for rehab. Complaint: fall -: This morning Fall From: other (Sitting on bed) Place Fall Occurred: home Loss of Consciousness: none Prolonged Down Time?: no Symptoms Prior to Fall: none Location: chest Location - Extremities: Left: Shoulder Severity: moderate Associated Symptoms: chest paint. denies: headache, neck pain, shortness of breath, lightheaded - Related Data Previous Rx's Medication Instructions Recorded Last Taken Type Aspirin EC [Halfprin EC] 81 mg PO QDAY #30 tablet 01/06/19 Unknown Rx AtorvaSTATin [Lipitor] 40 mg PO QHS #30 tablet 01/06/19 Unknown Rx Clopidogrel [Plavix] 75 mg PO QDAY #30 tablet 01/06/19 Unknown Rx FLUoxetine [PROzac] 40 mg PO BID #60 capsule 01/06/19 Unknown Rx Famotidine [Pepcid] 20 mg PO BID #60 tablet 01/06/19 Unknown Rx Insulin Glargine [Lantus VIAL] 40 units SUB-Q QHS 30 Days units 01/06/19 Unknown Rx Lispro Insulin [HumaLOG] 0 unit SUB-Q ACHS 30 Days units 01/06/19 Unknown Rx NIFEdipine XL [Procardia Xl] 60 mg PO QDAY #30 tablet 01/06/19 Unknown Rx Nicotine [Habitrol] 14 mg TD QDAY #30 patch 01/06/19 Unknown Rx hydrALAZINE [Apresoline TAB] 100 mg PO TID #90 tab 01/06/19 Unknown Rx labetaloL [Labetalol 100mg TAB] 100 mg PO BID #60 tablet 01/06/19 Unknown Rx traZODone [Desyrel] 50 mg PO QHS #30 tablet 01/06/19 Unknown Rx Fluconazole [Diflucan TAB] 100 mg PO QDAY #7 tablet 03/12/19 Unknown Rx Meclizine HCl [Meclizine CHEW] 25 mg PO BID PRN #30 tab.chew 03/12/19 Unknown Rx Permethrin [Home Ouxg-Sxtnrp-Swdw 142 gm MC DAILY 5 Days spray 03/12/19 Unknown Rx Mite] diphenhydrAMINE [Benadryl CAP] 25 mg PO Q6H PRN #14 capsule 03/12/19 Unknown Rx methOCARBAMOL [Robaxin TAB] 500 mg PO Q8HR PRN #15 tablet 10/31/20 Unknown Rx Allergies Allergy/AdvReac Type Severity Reaction Status Date / Time ketorolac [From Toradol] Allergy Hives Verified 12/21/18 12:12 morphine Allergy Hives Verified 12/21/18 12:12 ED Review of Systems ROS: Stated complaint: FALL Other details as noted in HPI Comment: All other systems reviewed and negative Constitutional: denies: fever Respiratory: denies: shortness of breath Cardiovascular: chest pain Musculoskeletal: other (Reports left shoulder pain) Neurological: denies: headache ED Past Medical Hx - Past Medical History Previous Medical History?: Yes Hx Hypertension: Yes Hx CVA: Yes (Small stroke left with weak legs/incontinent) Hx Heart Attack/AMI: Yes Hx Diabetes: Yes Hx GERD: Yes (stomach ulcers) Hx Liver Disease: Yes (nonalcoholic fatty liver) Hx Arthritis: Yes (RA, osteoarthritis) Hx COPD: Yes Hx HIV: Yes - Surgical History Past Surgical History?: Yes Hx Cholecystectomy: Yes Hx Breast Surgery: Yes Additional Surgical History: Hysterectomy - Social History Smoking Status: Current Every Day Smoker Substance Use Type: None - Medications Home Medications: Home Medications Medication Instructions Recorded Confirmed Last Taken Type Aspirin EC [Halfprin EC] 81 mg PO QDAY #30 tablet 01/06/19 03/09/19 Unknown Rx AtorvaSTATin [Lipitor] 40 mg PO QHS #30 tablet 01/06/19 03/09/19 Unknown Rx Clopidogrel [Plavix] 75 mg PO QDAY #30 tablet 01/06/19 03/09/19 Unknown Rx FLUoxetine [PROzac] 40 mg PO BID #60 capsule 01/06/19 03/09/19 Unknown Rx Famotidine [Pepcid] 20 mg PO BID #60 tablet 01/06/19 03/09/19 Unknown Rx Insulin Glargine [Lantus VIAL] 40 units SUB-Q QHS 30 Days units 01/06/19 03/09/19 Unknown Rx Lispro Insulin [HumaLOG] 0 unit SUB-Q ACHS 30 Days units 01/06/19 03/09/19 Unknown Rx NIFEdipine XL [Procardia Xl] 60 mg PO QDAY #30 tablet 01/06/19 03/09/19 Unknown Rx Nicotine [Habitrol] 14 mg TD QDAY #30 patch 01/06/19 03/09/19 Unknown Rx hydrALAZINE [Apresoline TAB] 100 mg PO TID #90 tab 01/06/19 03/09/19 Unknown Rx labetaloL [Labetalol 100mg TAB] 100 mg PO BID #60 tablet 01/06/19 03/09/19 Unknown Rx traZODone [Desyrel] 50 mg PO QHS #30 tablet 01/06/19 03/09/19 Unknown Rx Fluconazole [Diflucan TAB] 100 mg PO QDAY #7 tablet 03/12/19 Unknown Rx Meclizine HCl [Meclizine CHEW] 25 mg PO BID PRN #30 tab.chew 03/12/19 Unknown Rx Permethrin [Home Oqzy-Eqnpoo-Jded 142 gm MC DAILY 5 Days spray 03/12/19 Unknown Rx Mite] diphenhydrAMINE [Benadryl CAP] 25 mg PO Q6H PRN #14 capsule 03/12/19 Unknown Rx methOCARBAMOL [Robaxin TAB] 500 mg PO Q8HR PRN #15 tablet 10/31/20 Unknown Rx ED Physical Exam - General Limitations: No Limitations General appearance: alert, in no apparent distress - Head Head exam: Present: atraumatic, normocephalic - Eye Eye exam: Present: normal appearance, EOMI - ENT ENT exam: Present: mucous membranes moist - Neck Neck exam: Present: normal inspection. Absent: tenderness - Respiratory Respiratory exam: Present: normal lung sounds bilaterally, chest wall tenderness (Left anterior chest wall, no bruising present). Absent: respiratory distress - Cardiovascular Cardiovascular Exam: Present: regular rate, normal rhythm - GI/Abdominal GI/Abdominal exam: Present: soft. Absent: distended, tenderness - Extremities Exam Extremities exam: Present: normal inspection, tenderness (To left shoulder, no bruising present) - Neurological Exam Neurological exam: Present: alert, oriented X3, motor sensory deficit (Baseline left-sided weakness secondary to prior CVA) - Psychiatric Psychiatric exam: Present: normal affect, normal mood - Skin Skin exam: Present: warm, dry, intact, normal color ED Course Vital Signs 10/31/20 10/31/20 09:51 12:30 Temperature 99.3 F Pulse Rate 106 H 94 H Respiratory 18 18 Rate Blood Pressure 149/83 Blood Pressure 142/85 [Right] O2 Sat by Pulse 97 97 Oximetry ED Medical Decision Making - Lab Data Result diagrams: 10/31/20 11:01 10/31/20 10:20 - Radiology Data Radiology results: report reviewed, image reviewed - Medical Decision Making 50-year-old female presents to ED after falling out of bed and sustaining injury to the left anterior chest wall and left shoulder. X-rays are negative for any acute fractures, dislocations or pneumothorax. Patient reports recent cocaine and use. Patient given information for outpatient substance abuse programs with her discharge paperwork. She will be discharged at this time with prescriptions, return precautions given. - Differential Diagnosis Fracture, sprain, pneumothorax Critical care attestation.: If time is entered above; I have spent that time in minutes in the direct care of this critically ill patient, excluding procedure time. ED Disposition Clinical Impression: Chest wall contusion, Contusion of left shoulder, Hyperglycemia Disposition: - TO HOME OR SELFCARE Is pt being admited?: No Condition: Stable Instructions: Substance Use Disorder, Contusion, [id number], Finding Treatment for Addiction Prescriptions: methOCARBAMOL [Robaxin TAB] 500 mg PO Q8HR PRN #15 tablet PRN Reason: Muscle Spasm Referrals: CARLOS JULIO MD [Primary Care Provider] - 3-5 Days Time of Disposition: 11:47
[2020-10-31 11:20] LABS: Basophils # (Auto) 0.1 K/mm3 (0.0-0.1); Basophils % (Auto) 1.1 % (0.0-1.8); Eosinophils # (Auto) 0.1 K/mm3 (0.0-0.4); Eosinophils % (Auto) 1.5 % (0.0-4.3); Hematocrit 41.6 % (30.3-42.9); Hemoglobin 13.9 gm/dl (10.1-14.3); Lymphocytes # (Auto) 2.8 K/mm3 (1.2-5.4); Lymphocytes % (Auto) 29.1 % (13.4-35.0); Mean Corpuscular HGB Conc 33 % (30-34); Mean Corpuscular Volume 92 fl (79-97); Monocytes # (Auto) 0.7 K/mm3 (0.0-0.8); Monocytes % (Auto) 7.4 % (0.0-7.3); Platelet Count 327 K/mm3 (140-440); Red Blood Count 4.54 M/mm3 (3.65-5.03); Red Cell Distribution Width 13.9 % (13.2-15.2)
[2020-10-31] MEDS ORDERED: INSULIN REGULAR, HUMAN 100 UNITS/1 ML SUB-Q ONE (11:25)
--- NOTE | 2020-10-31 11:37 | XRay Report ---
LEFT SHOULDER 4 VIEWS INDICATION / CLINICAL INFORMATION: pain s/p fall. COMPARISON: None available. FINDINGS: No significant skeletal abnormality Signer Name: Leo Paul MD FACR Signed: 10/31/2020 11:33 AM Workstation Name: [id number]
--- NOTE | 2020-10-31 11:38 | XRay Report ---
LEFT RIBS WITH CHEST X-RAY 5 VIEWS INDICATION / CLINICAL INFORMATION: pain s/p fall. COMPARISON: None available. FINDINGS: No significant skeletal abnormality. No evidence of a left-sided pneumothorax Signer Name: Leo Paul MD FACR Signed: 10/31/2020 11:34 AM Workstation Name: [id number]
[2020-10-31 12:32] VITALS: BP 142/85
== END 2020-10-31 12:32 | disposition home or self-care (01) ==
LOC: ED 09:51
DX: S20.214A Contusion of middle front wall of thorax, initial encounter (principal); S40.012A Contusion of left shoulder, initial encounter; E11.65 Type 2 diabetes mellitus with hyperglycemia; I10 Essential (primary) hypertension; I25.2 Old myocardial infarction; K21.9 Gastro-esophageal reflux disease without esophagitis; M19.90 Unspecified osteoarthritis, unspecified site; J44.9 Chronic obstructive pulmonary disease, unspecified; F17.200 Nicotine dependence, unspecified, uncomplicated; Z90.49 Acquired absence of other specified parts of digestive tract; Z90.710 Acquired absence of both cervix and uterus; Z79.82 Long term (current) use of aspirin; Z79.899 Other long term (current) drug therapy; Z88.8 Allergy status to other drugs, medicaments and biological substances; W06.XXXA Fall from bed, initial encounter; Y93.89 Activity, other specified; Y92.099 Unspecified place in other non-institutional residence as the place of occurrence of the external cause; Y99.8 Other external cause status
CPT/HCPCS: 36415; 80048; 82805; 85025; 96372; J1815